=== PATIENT | female | born 1965 | race Caucasian/White ===

== ENCOUNTER 2017-11-19 10:24 | Inpatient (IN) ==
[2017-11-19] MEDS ORDERED: Vancomycin Inj 1,000 MG in Sodium Chlor 0.9% Inj 250 ML IV.SIG STA (10:46)
[2017-11-19] MEDS ORDERED: Piperacil/Tazo 4.5 GM Premix 4.5 GM/100 ML BAG IV.SIG STA (10:46)
--- NOTE | 2017-11-19 11:07 | ED ---
HPI General Chief complaint: Recheck/Abnormal Lab/Rx Stated complaint: Right foot second toe red/swollen Time Seen by Provider: 11/19/17 10:46 Source: patient Mode of arrival: ambulatory Limitations: no limitations History of Present Illness HPI narrative: Patient presents with wet necrotic R second toe. Reports a non healing blister that started in September and has worsened since 4 days ago. complaint: rash (erythema tracking up R foot from wound ) and lesion Onset (ago): month(s) Tetanus Immunization: Unsure Location: R foot (second toe ) Severity: severe Quality: burning (mild transient burning on medial R ankle ) Pain Consistency: other (none) Relieving factors: none Exacerbating factors: none Context: none Associated symptoms: fever Treatments prior to arrival: antibiotic (topical triple antibiotic cream for last 4 days ) Related Data Home Medications Medication Instructions Recorded Confirmed No Known Home Medications 11/19/17 11/19/17 Allergies Allergy/AdvReac Type Severity Reaction Status Date / Time No Known Allergies Allergy Verified 11/19/17 11:44 Review of Systems ROS: all other systems reviewed are negative [facility] Surgical History Surgical History Hx of cholecystectomy (Acute) S/P lumpectomy, left breast (Acute) Social History Social History Substance History: No History of Abuse Smoking Status: Current every day smoker Tobacco Type: Cigarettes How Often Do You Have a Drink Containing Alcohol: Never Recent Travel in [facility] within the Last 8 Weeks: No Recent Out of Country Travel within the Last 8 Weeks: No Immunization History Tetanus Immunization: Unsure Hx Influenza Vaccine This Season: No Pediatric Immunizations Up to Date: Yes Exam Skin General: crusts, erythema and eschar Lesions: lesion noted Rashes: rashes noted Trauma: abrasion Wounds: wounds noted Hair: normal Nails: yellow and thickened Course Consultations Consultation #1: Dr. Easton will admit Time: 15:05 Initial Documented Vital Signs Temperature 98.6 F 11/19/17 10:36 Pulse Rate 104 H 11/19/17 10:36 Respiratory Rate 15 11/19/17 10:36 Blood Pressure 162/74 H 11/19/17 10:36 Pulse Oximetry 98 11/19/17 10:36 Last Documented Vital Signs Temperature 98.6 F 11/19/17 10:40 Pulse Rate 85 11/19/17 13:40 Respiratory Rate 12 11/19/17 13:40 Blood Pressure 140/65 11/19/17 13:40 Pulse Oximetry 98 11/19/17 13:40 Medical Decision Making MDM Narrative Medical decision making narrative: This patient presents with progressively worsening redness of her right second toe. On examination, she has cellulitis of the right second toe. There is also an open wound. She was treated empirically with Zosyn and vancomycin while pending her workup. Her MRI does show ostial mild right second toe. I will request admission for IV antibiotics and podiatry consultation. Medical Screen Exam Complete: Yes Emergency Medical Condition: Yes Differential Diagnosis Differential Diagnosis: erysipelas, cellulitis, dry gangrene, wet gangrene Lab Data Lab results reviewed: Yes I reviewed the patient's lab results. Result diagrams: 11/19/17 11:05 11/19/17 11:05 Lab Results 11/19/17 11/19/17 11/19/17 Range/Units 11:05 11:05 11:05 WBC 12.3 H (4.0-11.0) th/mm3 RBC 4.43 (4.00-5.30) mil/mm3 Hgb 13.3 (11.6-15.3) gm/dL Hct 38.4 (35.0-46.0) % MCV 86.8 (80.0-100.0) fL MCH 30.1 (27.0-34.0) pg MCHC 34.7 (32.0-36.0) % RDW 13.5 (11.6-17.2) % Plt Count 238 (150-450) th/mm3 MPV 9.7 (7.0-11.0) fL Neut % (Auto) 80.6 H (16.0-70.0) % Lymph % (Auto) 14.2 (9.0-44.0) % [place] % (Auto) 4.6 (0.0-8.0) % Eos % (Auto) 0.2 (0.0-4.0) % Baso % (Auto) 0.4 (0.0-2.0) % Neut # (Auto) 9.9 H (1.8-7.7) th/mm3 Lymph # (Auto) 1.8 (1.0-4.8) th/mm3 [place] # (Auto) 0.6 (0.0-0.9) th/mm3 Eos # (Auto) 0.0 (0.0-0.4) th/mm3 Baso # (Auto) 0.0 (0.0-0.2) th/mm3 WBC Differential . Differential Comment Auto diff final ESR (0-30) mm/hr Sodium 135 L (136-145) meq/L Potassium 4.7 (3.5-5.1) meq/L Chloride 99 (98-107) meq/L Carbon Dioxide 28.1 (21.0-32.0) meq/L Anion Gap 8 (5-15) meq/L BUN 12 (7-18) mg/dL Creatinine 0.75 (0.50-1.00) mg/dL Estimated GFR 81 L (>89) mL/min Random Glucose 316 H (74-106) mg/dL Lactic Acid 1.1 (0.4-2.0) mmol/L Calcium 9.0 (8.5-10.1) mg/dL Total Bilirubin 0.6 (0.2-1.0) mg/dL AST 24 (15-37) U/L ALT 18 (10-53) U/L Alkaline Phosphatase 110 (45-117) U/L C-Reactive Protein (0.00-0.30) mg/dL Total Protein 8.3 H (6.4-8.2) g/dL Albumin 3.1 L (3.4-5.0) g/dL 11/19/17 11/19/17 Range/Units 11:05 11:05 WBC (4.0-11.0) th/mm3 RBC (4.00-5.30) mil/mm3 Hgb (11.6-15.3) gm/dL Hct (35.0-46.0) % MCV (80.0-100.0) fL MCH (27.0-34.0) pg MCHC (32.0-36.0) % RDW (11.6-17.2) % Plt Count (150-450) th/mm3 MPV (7.0-11.0) fL Neut % (Auto) (16.0-70.0) % Lymph % (Auto) (9.0-44.0) % [place] % (Auto) (0.0-8.0) % Eos % (Auto) (0.0-4.0) % Baso % (Auto) (0.0-2.0) % Neut # (Auto) (1.8-7.7) th/mm3 Lymph # (Auto) (1.0-4.8) th/mm3 [place] # (Auto) (0.0-0.9) th/mm3 Eos # (Auto) (0.0-0.4) th/mm3 Baso # (Auto) (0.0-0.2) th/mm3 WBC Differential Differential Comment ESR 43 H (0-30) mm/hr Sodium (136-145) meq/L Potassium (3.5-5.1) meq/L Chloride (98-107) meq/L Carbon Dioxide (21.0-32.0) meq/L Anion Gap (5-15) meq/L BUN (7-18) mg/dL Creatinine (0.50-1.00) mg/dL Estimated GFR (>89) mL/min Random Glucose (74-106) mg/dL Lactic Acid (0.4-2.0) mmol/L Calcium (8.5-10.1) mg/dL Total Bilirubin (0.2-1.0) mg/dL AST (15-37) U/L ALT (10-53) U/L Alkaline Phosphatase (45-117) U/L C-Reactive Protein 14.60 H (0.00-0.30) mg/dL Total Protein (6.4-8.2) g/dL Albumin (3.4-5.0) g/dL Imaging Data Radiologist's impression: Chest X-Ray 11/19/17 10:46 CONCLUSION: Negative examination. Foot MRI 11/19/17 10:46 CONCLUSION: 1. Evidence of significant soft tissue swelling of the right second toe as well as edema involving the right second middle and distal phalanges. The findings are consistent with probable osteomyelitis and cellulitis of the right second toe. There is joint fluid involving the second proximal interphalangeal joint. There is diffuse marrow edema involving the first distal phalanx with soft tissue swelling/cellulitis involving the great toe also. These findings are also suggestive of probable osteomyelitis and cellulitis of the great toe. There is also evidence of diffuse marrow edema involving the right third and fourth metatarsals and minimal scattered edema within the distal shaft of the first metatarsal raising the possibility of osteomyelitis within these bones. Three-phase bone scan may be helpful for further characterization of these bones if clinically indicated. Diffuse cellulitis is noted along the plantar surface of the midfoot. No deep soft tissue abscess is noted. Discharge Plan Discharge Disposition Patient Disposition: 30 Still Patient Discharge Condition Condition: Fair Discharge Details Diagnosis: Wet gangrene, Osteomyelitis Physicians Team ED Provider: Mabel Hooper Primary Care Provider: [facility] Rxs /Orders / Referrals /Forms Prescriptions: No Action No Known Home Medications RF: 0 Status ED Status: Pending Admission
--- NOTE | 2017-11-19 11:09 | XR ---
EXAM DATE: 11/19/2017 10:46 AM EDT AGE/SEX: 52 years / Female INDICATIONS: Fever, short of breath, possible infection 2nd toe of right foot CLINICAL DATA: This is the patient's initial encounter. Patient reports that signs and symptoms have been present for 1 day and indicates a pain score of 0/10. MEDICAL/SURGICAL HISTORY: None. None. COMPARISON: No prior exams available for comparison. FINDINGS: A single AP view of the chest demonstrates the lungs to be symmetrically aerated without evidence of mass, infiltrate or effusion. The cardiomediastinal contours are unremarkable. Osseous structures a re intact. CONCLUSION: Negative examination. Electronically signed by: Beni Faulkner MD 11/19/2017 11:07 AM EDT
[2017-11-19 11:29] LABS: Baso % (Auto) 0.4 % (0.0-2.0); Eos % (Auto) 0.2 % (0.0-4.0); Hematocrit 38.4 % (35.0-46.0); Hemoglobin 13.3 gm/dL (11.6-15.3); Lymph # (Auto) 1.8 th/mm3 (1.0-4.8); Lymph % (Auto) 14.2 % (9.0-44.0); Mean Corpuscular HGB Conc 34.7 % (32.0-36.0); Mean Corpuscular Hemoglobin 30.1 pg (27.0-34.0); Mean Corpuscular Volume 86.8 fL (80.0-100.0); Mean Platelet Volume 9.7 fL (7.0-11.0); Mono # (Auto) 0.6 th/mm3 (0.0-0.9); Mono % (Auto) 4.6 % (0.0-8.0); Neut # (Auto) 9.9 th/mm3 (1.8-7.7); Neut % (Auto) 80.6 % (16.0-70.0); Platelet Count 238 th/mm3 (150-450); Red Blood Count 4.43 mil/mm3 (4.00-5.30); Red Cell Distribution Width 13.5 % (11.6-17.2); White Blood Count 12.3 th/mm3 (4.0-11.0)
[2017-11-19 11:46] LABS: Albumin 3.1 g/dL (3.4-5.0); Anion Gap 8 meq/L (5-15); Aspartate Aminotransferase 24 U/L (15-37); Blood Urea Nitrogen 12 mg/dL (7-18); Carbon Dioxide 28.1 meq/L (21.0-32.0); Chloride 99 meq/L (98-107); Glomerular Filtration Rate 81 mL/min (>89); Glucose,Random 316 mg/dL (74-106); Sodium 135 meq/L (136-145)
[2017-11-19 11:47] LABS: Alanine Aminotransferase 18 U/L (10-53); Alkaline Phosphatase 110 U/L (45-117); Potassium 4.7 meq/L (3.5-5.1); Total Protein 8.3 g/dL (6.4-8.2)
[2017-11-19] MEDS ORDERED: Gadobutrol PF 7.5 MMOL/7.5 ML Vial (for RAD) IV.SIG ONE (13:20)
--- NOTE | 2017-11-19 14:12 | MR ---
EXAM DATE: 11/19/2017 12:14 PM EDT AGE/SEX: 52 years / Female INDICATIONS: . Right second toe infection. CLINICAL DATA: This is the patient's initial encounter. Patient reports that signs and symptoms have been present for 4 - 6 days and indicates a pain score of 3/10. MEDICAL/SURGICAL HISTORY: None. section. Cholecystectomy. LT breast lumpectomy COMPARISON: No prior exams available for comparison. TECHNIQUE: Multiplanar, multisequence MRI examination was performed without contrast and after th e intravenous administration of 7.5 ml Gadavist (gadobutrol) single exam dose. FINDINGS: There is evidence of significant soft tissue swelling of the right second toe as well as edema involv ing the right second middle and distal phalanges. The findings are consistent with probable osteomyel itis and cellulitis of the right second toe. There is joint fluid involving the second proximal inter phalangeal joint. There is diffuse marrow edema involving the first distal phalanx with soft tissue s welling/cellulitis involving the great toe also. These findings are also suggestive of probable osteo myelitis and cellulitis of the great toe. There is also evidence of diffuse marrow edema involving th e right third and fourth metatarsals and minimal scattered edema within the distal shaft of the first metatarsal raising the possibility of osteomyelitis within these bones. Three-phase bone scan may be helpful for further characterization of these bones if clinically indicated. Diffuse cellulitis is n oted along the plantar surface of the midfoot. No deep soft tissue abscess is noted. CONCLUSION: 1. Evidence of significant soft tissue swelling of the right second toe as well as edema involving t he right second middle and distal phalanges. The findings are consistent with probable osteomyelitis and cellulitis of the right second toe. There is joint fluid involving the second proximal interphala ngeal joint. There is diffuse marrow edema involving the first distal phalanx with soft tissue swelli ng/cellulitis involving the great toe also. These findings are also suggestive of probable osteomyeli tis and cellulitis of the great toe. There is also evidence of diffuse marrow edema involving the rig ht third and fourth metatarsals and minimal scattered edema within the distal shaft of the first meta tarsal raising the possibility of osteomyelitis within these bones. Three-phase bone scan may be help ful for further characterization of these bones if clinically indicated. Diffuse cellulitis is noted along the plantar surface of the midfoot. No deep soft tissue abscess is noted. Electronically signed by: Beni Faulkner MD 11/19/2017 2:10 PM EDT
[2017-11-19] MEDS ORDERED: Bisacodyl 10 MG Supp RECTAL PRN (15:05)
[2017-11-19] MEDS ORDERED: Vancomycin Consult Pharmacy OTHER PRN (15:15)
[2017-11-19] MEDS ORDERED: Dextrose 50% in Water 50 ML Vial IV.PUSH PRN (15:55)
--- NOTE | 2017-11-19 15:58 | P.HP ---
History of Present Illness Service: Hospitalist Primary Care Physician: No Primary Care Physician Chief Complaint: Right foot pain, tenderness, redness History of Present Illness: Ms. Nava is a pleasant 52-year-old female with no significant medical history who presents to the emergency department due to pain, necrotic changes to her right second toe as well as fever and chills. Patient had a blister on the bottom side of her right second toe back in September. Her blister improved. However approximately 4 days ago she started noticing redness swelling as well as fever and chills. In the last 24 hours prior to this admission, she started noticing her toe becoming necrotic. She also has more pain in her forefoot and her pain is moving up her ankle. She denies any chest pain, shortness of breath, cough. No abdominal pain. No changes in bowel or bladder habits. ED workup indicates osteomyelitis of the right sided second toe. Her blood glucose was also elevated to 316. She was not aware of her diabetes diagnosis. Past medical history: No significant past medical history. Past surgical history: Cholecystectomy, , breast lumpectomy (no malignancy) Social history: Patient quit smoking a few days ago. She denies using alcohol or illicit drugs. Family history: Mother had arthritis and father had diabetes mellitus. - Diagnosis (1) Osteomyelitis (2) Diabetes mellitus Inpatient Certification: I certify that the inpatient services were ordered in accordance with Medicare regulations governing the order. This includes certification that hospital inpatient services are reasonable and necessary and in the case of services not specified as inpatient-only under 42 CFR 419.22(n), that they are appropriately provided as inpatient services in accordance to with the 2-midnight benchmark under 43 CFR 412.3(e) Estimated Total Length of Stay (Days): 3 Plans for Post Hospital Care: Home Review of Systems All other systems reviewed negative except as stated in HPI PMFSH - History History Provided By: Patient - Medical History Medical History: Medical History (Last Reviewed 11/19/17 @ 11:01 by Mabel Hooper) delivery delivered - Surgical History Surgical History: Surgical History (Last Updated 11/19/17 @ 10:54 by Ruth Wylie) Hx of cholecystectomy S/P lumpectomy, left breast - Tobacco History Tobacco Use In Past 30 Days: Yes Smoking Status: Current every day smoker Tobacco Type: Cigarettes - Alcohol History How Often Do You Have a Drink Containing Alcohol: Never - Substance Use History Substance History: No History of Abuse - Travel History Recent Travel in the [place] Within the Last 8 Weeks: No Recent Travel Out of the Country Within the Last 8 Weeks: No - Immunization History Tetanus Immunization: Unsure Hx Influenza Vaccine This Season: No Pediatric Immunizations Up to Date: Yes Medications and Allergies Active Medications: Active Medications Acetaminophen (Tylenol) 650 mg PO Q4H PRN PRN Reason: Headache, fever, pain 1-4 Hydrocodone Bitart/Acetaminophen ([place] 5/325) 1 tab PO Q6H PRN PRN Reason: Pain 5-10 Al Hydroxide/Mg Hydroxide (Milk Of Magnesia Liq) 30 ml PO Q12H PRN PRN Reason: Mild Constipation Bisacodyl (Dulcolax Supp) 10 mg RECTAL DAILY PRN PRN Reason: SEVERE CONSITIPATION Dextrose (D50w Vial) 50 ml IV.PUSH UNSCH PRN PRN Reason: PER HYPOGLYCEMIA PROTOCOL Glucagon (Glucagon Inj) 1 mg OTHER PRN PRN PRN Reason: for Hypoglycemia Protocol Piperacillin/Tazobactam/Dextrose (Zosyn 4.5 Gm Premix) 4.5 gm in 100 mls @ 200 mls/hr IV.SIG Q8H SANDRA Vancomycin HCl 1,000 mg/ (Sodium Chloride) 250 mls @ 250 mls/hr IV.SIG Q12H SANDRA Insulin Aspart (Novolog Insulin Correctional Sugar Inj) 0 unit SQ ACHS SANDRA; Protocol Insulin Detemir (Levemir Inj) 7 unit SQ HS SANDRA Lactulose (Lactulose Liq) 30 ml PO DAILY PRN PRN Reason: SEVERE CONSITIPATION Miscellaneous Information ([facility] Ordered Lab Info) 0 each OTHER ONCE ONE Stop: 11/20/17 22:46 Ondansetron HCl (Zofran Inj) 4 mg IV.PUSH Q6H PRN PRN Reason: NAUSEA OR VOMITING Pharmacy Profile Note (Vancomycin Consult Pharmacy) 1 each OTHER UNSCH PRN PRN Reason: Pharmacy to dose Sennosides (Senokot) 17.2 mg PO Q12H PRN PRN Reason: Moderate Constipation Allergies Allergy/AdvReac Type Severity Reaction Status Date / Time No Known Allergies Allergy Verified 11/19/17 11:44 Home Medications Medication Instructions Recorded Confirmed Type No Known Home Medications 11/19/17 11/19/17 History Exam Vital signs: Vital Signs 11/19/17 10:36 11/19/17 10:40 11/19/17 10:46 Temperature 98.6 F 98.6 F Pulse Rate 104 H 90 Respiratory Rate 15 20 Blood Pressure 162/74 H 167/70 H Pulse Oximetry 98 98 98 11/19/17 12:27 11/19/17 13:40 11/19/17 15:30 Temperature Pulse Rate 82 85 85 Respiratory Rate 18 12 18 Blood Pressure 143/66 H 140/65 143/69 H Pulse Oximetry 99 98 99 Intake & Output 11/18/17 11/19/17 11/19/17 18:59 06:59 18:59 Intake Total 250 / 250 Balance 250 / 250 Weight 73.482 kg Intake: IV 250 / 250 Vancomycin Inj 1,000 MG In NS 250 / 250 Inj 250 ML @ 250 mls/hr IV.SIG STAT STA Rx#:[id number] Narrative: GENERAL: This is a well-nourished, well-developed patient, in no apparent distress. SKIN: No rashes, ecchymoses or lesions. Warm and dry. HEAD: Atraumatic. Normocephalic. No temporal or scalp tenderness. EYES: Pupils equal round and reactive. No injection or drainage. ENT: Nose without bleeding, purulent drainage or septal hematoma. Airway patent. NECK: Trachea midline. No lymphadenopathy. Supple, nontender, no meningeal signs. CARDIOVASCULAR: Regular rate and rhythm without murmurs, gallops, or rubs. No JVD. RESPIRATORY: Clear to auscultation. Breath sounds equal bilaterally. No wheezes , rales, or rhonchi. GASTROINTESTINAL: Abdomen soft, non-tender, nondistended. No guarding. MUSCULOSKELETAL: Extremities without clubbing, cyanosis, or edema. Right forefoot has erythematous changes, warm to touch, right 2nd digit has necrotic tip and swelling. 3rd toe has some swelling as well. NEUROLOGICAL: Awake and alert. Cranial nerves II through XII intact. No focal neurological deficits. Normal speech. Results - Labs CBC & Chem 7: 11/19/17 11:05 11/19/17 11:05 Labs: Laboratory Results - last 24 hr 11/19/17 11/19/17 11/19/17 11:05 11:05 11:05 WBC 12.3 H RBC 4.43 Hgb 13.3 Hct 38.4 MCV 86.8 MCH 30.1 MCHC 34.7 RDW 13.5 Plt Count 238 MPV 9.7 Neut % (Auto) 80.6 H Lymph % (Auto) 14.2 [place] % (Auto) 4.6 Eos % (Auto) 0.2 Baso % (Auto) 0.4 Neut # (Auto) 9.9 H Lymph # (Auto) 1.8 [place] # (Auto) 0.6 Eos # (Auto) 0.0 Baso # (Auto) 0.0 WBC Differential . Differential Comment Auto diff final ESR Sodium 135 L Potassium 4.7 Chloride 99 Carbon Dioxide 28.1 Anion Gap 8 BUN 12 Creatinine 0.75 Estimated GFR 81 L Random Glucose 316 H Lactic Acid 1.1 Calcium 9.0 Total Bilirubin 0.6 AST 24 ALT 18 Alkaline Phosphatase 110 C-Reactive Protein Total Protein 8.3 H Albumin 3.1 L 11/19/17 11/19/17 11:05 11:05 WBC RBC Hgb Hct MCV MCH MCHC RDW Plt Count MPV Neut % (Auto) Lymph % (Auto) [place] % (Auto) Eos % (Auto) Baso % (Auto) Neut # (Auto) Lymph # (Auto) [place] # (Auto) Eos # (Auto) Baso # (Auto) WBC Differential Differential Comment ESR 43 H Sodium Potassium Chloride Carbon Dioxide Anion Gap BUN Creatinine Estimated GFR Random Glucose Lactic Acid Calcium Total Bilirubin AST ALT Alkaline Phosphatase C-Reactive Protein 14.60 H Total Protein Albumin - Imaging Impressions Chest X-Ray 11/19/17 10:46 CONCLUSION: Negative examination. Foot MRI 11/19/17 10:46 CONCLUSION: 1. Evidence of significant soft tissue swelling of the right second toe as well as edema involving the right second middle and distal phalanges. The findings are consistent with probable osteomyelitis and cellulitis of the right second toe. There is joint fluid involving the second proximal interphalangeal joint. There is diffuse marrow edema involving the first distal phalanx with soft tissue swelling/cellulitis involving the great toe also. These findings are also suggestive of probable osteomyelitis and cellulitis of the great toe. There is also evidence of diffuse marrow edema involving the right third and fourth metatarsals and minimal scattered edema within the distal shaft of the first metatarsal raising the possibility of osteomyelitis within these bones. Three-phase bone scan may be helpful for further characterization of these bones if clinically indicated. Diffuse cellulitis is noted along the plantar surface of the midfoot. No deep soft tissue abscess is noted. Caprini VTE Risk Assessment Caprini VTE Risk Assessment: Moderate/High Risk (score >= 2) Caprini Risk Assessment Model: Point Value = 1 Point Value = 2 Point Value = 3 Point Value = 5 Age 41-60 Minor surgery BMI > 25 kg/m2 Swollen legs Varicose veins or History of unexplained or recurrent spontaneous Oral contraceptives or hormone replacement Sepsis (< 1 month) Serious lung disease, including pneumonia (< 1 month) Abnormal pulmonary function Acute myocardial infarction Congestive heart failure (< 1 month) History of inflammatory bowel disease Medical patient at bed rest Age 61-74 Arthroscopic surgery Major open surgery (> 45 min) Laparoscopic surgery (> 45 min) Malignancy Confined to bed (> 72 hours) Immobilizing plaster cast Central venous access Age >= 75 History of VTE Family history of VTE Factor V Leiden Prothrombin [id number] Lupus anticoagulant Anticardiolipin antibodies Elevated serum homocysteine Heparin-induced thrombocytopenia Other congenital or acquired thrombophilia Stroke (< 1 month) Elective arthroplasty Hip, pelvis, or leg fracture Acute spinal cord injury (< 1 month) Prophylaxis Regimen: Total Risk Factor Score Risk Level Prophylaxis Regimen 0-1 Low Early ambulation 2 Moderate Order ONE of the following: *Sequential Compression Device (SCD) *Heparin 5000 units SQ BID 3-4 Higher Order ONE of the following medications: *Heparin 5000 units SQ TID *Enoxaparin/Lovenox 40 mg SQ daily (WT < 150 kg, CrCl > 30 mL/min) *Enoxaparin/Lovenox 30 mg SQ daily (WT < 150 kg, CrCl > 10-29 mL/min) *Enoxaparin/Lovenox 30 mg SQ BID (WT < 150 kg, CrCl > 30 mL/min) AND/OR *Sequential Compression Device (SCD) 5 or more Highest Order ONE of the following medications: *Heparin 5000 units SQ TID (Preferred with Epidurals) *Enoxaparin/Lovenox 40 mg SQ daily (WT < 150 kg, CrCl > 30 mL/min) *Enoxaparin/Lovenox 30 mg SQ daily (WT < 150 kg, CrCl > 10-29 mL/min) *Enoxaparin/Lovenox 30 mg SQ BID (WT < 150 kg, CrCl > 30 mL/min) AND *Sequential Compression Device (SCD) Assessment and Plan - Assessment (1) Osteomyelitis Code(s): M86.9 - Osteomyelitis, unspecified Status: Acute (2) Diabetes mellitus Code(s): E11.9 - Type 2 diabetes mellitus without complications Status: Acute - Plan Ms. Nava is a pleasant 52-year-old female with no significant medical history who presents to the emergency department due to second toe of her right foot swelling, redness, pain and necrotic tissue changes. Patient also had fever and chills. Emergency department workup indicates osteomyelitis and newly diagnosed diabetes mellitus. Acute Osteomyelitis of right second toe -Likely related to diabetic foot infection. ESR 43. -Consult Podiatry as well as ID -Start Vancomycin and Zosyn -Acetaminophen and [place] for pain. -Will obtain ELVIRA - if abnormal, may need a vascular surgery consult. Diabetes mellitus - HbA1c, lipid profile ordered - Start corrective scale insulin as well as Levemir 7 units QHS. - Upon discharge, consider PO Metformin +/- Glimepiride. - Diabetic education consult. Full code. SCDs for now. (1) Osteomyelitis Qualifiers: Osteomyelitis type: unspecified type Osteomyelitis location: foot Laterality : right Qualified Code(s): M86.9 - Osteomyelitis, unspecified
[2017-11-19] MEDS: Insulin NovoLOG Aspart Correctional Sugar Inj SQ SCH ×2 (18:11→22:17)
[2017-11-19] MEDS ORDERED: Insulin Detemir Inj 1,000 UNIT/10 ML Vial SQ SCH (21:00)
[2017-11-19] MEDS: Acetaminophen 325 MG Tablet PO PRN (22:09)
[2017-11-19] MEDS: Piperacil/Tazo 4.5 GM Premix 4.5 GM/100 ML BAG IV.SIG SCH (22:14)
[2017-11-19] MEDS: Vancomycin Inj 1,000 MG in Sodium Chlor 0.9% Inj 250 ML IV.SIG SCH (22:14)
[2017-11-20] MEDS: Piperacil/Tazo 4.5 GM Premix 4.5 GM/100 ML BAG IV.SIG SCH ×4 (05:29→22:47)
[2017-11-20 07:43] LABS: Glomerular Filtration Rate Greater Than 89 mL/min (>89)
[2017-11-20 07:45] LABS: Cholesterol 187 mg/dL (120-200); Triglycerides 154 mg/dL (42-150)
[2017-11-20 07:47] LABS: Chol/HDL Ratio 5.95 Ratio; HDL Cholesterol 31.4 mg/dL (40.0-60.0); LDL Cholesterol,Calculated 125 mg/dL (0-99)
[2017-11-20] MEDS: Insulin NovoLOG Aspart Correctional Sugar Inj SQ SCH ×4 (08:28→22:50)
--- NOTE | 2017-11-20 08:57 | P.CONID ---
History of Present Illness Service: Infectious disease Consult date: 11/20/17 Requesting Physician: Tonja Easton Reason for Consult: Evaluate patient with osteomyelitis right foot Primary Care Provider: No Primary Care Physician Chief Complaint: Right foot pain, tenderness, redness History of Present Illness: Patient seen and examined. Records reviewed. Patient is a 52-year-old female, presented to the hospital complaining of 4-day history of redness and swelling on her right foot as well as black discoloration of her right second toe over the last 2 days. Patient stated that she developed a blister on her right second toe around the first week of September. She has been doing her own wound care, and what is been happening is that she would develop a scab or some kind of a callus over the area where she had the blister, and then it would come off, and then it would develop again a Tania. This went on over the last 2 months. She had an episode of redness below that second toe back in September, and she took some leftover antibiotic from the and apparently the redness went away. She did not really have any other new problem up until 4 days ago when she woke up and she had noticed that the right second toe is red and swollen. She also had fevers at that time. She was not improving, and about a day prior to admission she had noted black discoloration on that second toe. She presented to the hospital for further evaluation and treatment. She has not had any respiratory complaint, GI or any urinary complaints. Since admission she has not had any fever. Her white count is 12,000. Sed rate is 43. Imaging studies of that right foot is showing multiple abnormalities suggestive of osteomyelitis including findings on the second toe, first toe, as well as some of the metatarsal bones. Patient has known neuropathy and according to her this is been for the last 15 years, and has chronic numbness on both feet. Infectious disease consultation has been requested to evaluate the patient Review of Systems Constitutional: Reports chills, Reports fatigue, Reports fever(s) Eyes: Denies discharge, Denies dry eyes Ears, Nose, Mouth, and Throat: Denies difficulty swallowing, Denies mouth lesions, Denies nasal discharge, Denies pain with swallowing, Denies sore throat Cardiovascular: Denies chest pain, Denies shortness of breath Respiratory: Denies chest congestion, Denies cough, Denies shortness of breath Gastrointestinal: Denies abdominal pain, Denies loose stools, Denies nausea, Denies pain with swallowing, Denies vomiting Genitourinary: Denies difficulty urinating, Denies painful urination Musculoskeletal: Reports numbness, Denies back pain Skin/Breast: Reports sores, Denies rash Neurologic: Reports numbness, Denies localized weakness PMFSH - History History Provided By: Patient - Medical History Medical History: Medical History (Last Updated 11/20/17 @ 09:13 by Mini Lim MD) delivery delivered Neuropathy - Surgical History Surgical History: Surgical History (Last Updated 11/20/17 @ 09:13 by Mini Lim MD) Hx of breast surgery Hx of cholecystectomy - Tobacco History Second Hand Smoke Exposure: Yes Tobacco Use In Past 30 Days: No Smoking Status: Former smoker Tobacco Type: Cigarettes - Alcohol History How Often Do You Have a Drink Containing Alcohol: Never - Substance Use History Substance History: No History of Abuse - Travel History Recent Travel in the [place] Within the Last 8 Weeks: No Recent Travel Out of the Country Within the Last 8 Weeks: No - Immunization History Tetanus Immunization: Unsure Hx Influenza Vaccine This Season: No Pediatric Immunizations Up to Date: Yes Medications and Allergies Active Medications: Active Medications Acetaminophen (Tylenol) 650 mg PO Q4H PRN PRN Reason: Headache, fever, pain 1-4 Last Admin: 11/19/17 22:09 Dose: 650 mg Hydrocodone Bitart/Acetaminophen ([place] 5/325) 1 tab PO Q6H PRN PRN Reason: Pain 5-10 Last Admin: 11/20/17 05:29 Dose: 1 tab Al Hydroxide/Mg Hydroxide (Milk Of Magnesia Liq) 30 ml PO Q12H PRN PRN Reason: Mild Constipation Bisacodyl (Dulcolax Supp) 10 mg RECTAL DAILY PRN PRN Reason: SEVERE CONSITIPATION Dextrose (D50w Vial) 50 ml IV.PUSH UNSCH PRN PRN Reason: PER HYPOGLYCEMIA PROTOCOL Glucagon (Glucagon Inj) 1 mg OTHER PRN PRN PRN Reason: for Hypoglycemia Protocol Piperacillin/Tazobactam/Dextrose (Zosyn 4.5 Gm Premix) 4.5 gm in 100 mls @ 200 mls/hr IV.SIG Q8H SANDRA Last Infusion: 11/20/17 06:00 Dose: Infused Vancomycin HCl 1,000 mg/ (Sodium Chloride) 250 mls @ 250 mls/hr IV.SIG Q12H SANDRA Last Infusion: 11/19/17 23:45 Dose: Infused Insulin Aspart (Novolog Insulin [place] Sugar Inj) 0 unit SQ ACHS SANDRA; Protocol Last Admin: 11/20/17 08:28 Dose: 4 unit Insulin Detemir (Levemir Inj) 7 unit SQ HS [facility] Last Admin: 11/19/17 22:14 Dose: 7 unit Lactulose (Lactulose Liq) 30 ml PO DAILY PRN PRN Reason: SEVERE CONSITIPATION Miscellaneous Information ([facility] Ordered Lab Info) 0 each OTHER ONCE ONE Stop: 11/20/17 22:46 Ondansetron HCl (Zofran Inj) 4 mg IV.PUSH Q6H PRN PRN Reason: NAUSEA OR VOMITING Pharmacy Profile Note (Vancomycin Consult Pharmacy) 1 each OTHER UNSCH PRN PRN Reason: Pharmacy to dose Sennosides (Senokot) 17.2 mg PO Q12H PRN PRN Reason: Moderate Constipation Allergies Allergy/AdvReac Type Severity Reaction Status Date / Time No Known Allergies Allergy Verified 11/19/17 11:44 Home Medications Medication Instructions Recorded Confirmed Type No Known Home Medications 11/19/17 11/19/17 History Exam Vital signs: Vital Signs 11/19/17 10:36 11/19/17 10:40 11/19/17 10:46 Temperature 98.6 F 98.6 F Pulse Rate 104 H 90 Respiratory Rate 15 20 Blood Pressure 162/74 H 167/70 H Pulse Oximetry 98 98 98 11/19/17 12:27 11/19/17 13:40 11/19/17 15:30 Temperature Pulse Rate 82 85 85 Respiratory Rate 18 12 18 Blood Pressure 143/66 H 140/65 143/69 H Pulse Oximetry 99 98 99 11/19/17 16:00 11/19/17 20:02 11/20/17 00:00 Temperature 99.0 F 99.1 F 98.6 F Pulse Rate 82 84 85 Respiratory Rate 14 18 18 Blood Pressure 169/72 H 128/68 132/64 Pulse Oximetry 99 97 96 11/20/17 04:00 11/20/17 07:49 Temperature 98.7 F 98.4 F Pulse Rate 80 72 Respiratory Rate 18 16 Blood Pressure 135/70 114/56 L Pulse Oximetry 97 97 Intake & Output 11/19/17 11/20/17 11/20/17 18:59 06:59 18:59 Intake Total 350 / 350 450 / 450 Balance 350 / 350 450 / 450 Weight 73.482 kg 75.5 kg Intake: IV 350 / 350 450 / 450 Zosyn 4.5 GM Premix 4.5 gm In 100 / 100 200 / 200 100 ml @ 200 mls/hr IV.SIG Q8H SANDRA Rx#:[id number] Vancomycin Inj 1,000 MG In NS 250 / 250 250 / 250 Inj 250 ML @ 250 mls/hr IV.SIG Q12H SANDRA Rx#:[id number] Other: # Voids 3 Date of Last Bowel Movement 11/19/17 Weight On Admission 75.6 kg Narrative: Physical Examination GENERAL: Patient is a well-nourished, well-developed female, awake and alert , not in respiratory distress. SKIN: Cool and dry. No generalized rash, no ecchymoses and no evidence of embolic lesions. HEAD: Atraumatic. Normocephalic. No temporal wasting, or tenderness. EYES: [place] conjunctiva. No petechia or hemorrhage. Pupils equal, round and reactive to light. Extraocular movements full and intact. No scleral icterus. No injection or drainage. EARS, NOSE AND THROAT: Nose without bleeding or purulent nasal discharge. No sinus tenderness. Mucous membranes pink and moist. No oral lesions noted. No exudate. No oral thrush. NECK: Trachea midline. Supple and not tender, no meningeal signs CARDIOVASCULAR: Regular rate and rhythm. No murmurs, rubs or gallops heard RESPIRATORY: Clear to auscultation. Breath sounds equal bilaterally. No rales , wheezing or rhonchi ABDOMEN: Soft, non-tender, nondistended. Bowel sounds present and normoactive. No guarding. No rebound. No organomegaly. EXTREMITIES: No clubbing, cyanosis. R foot with some mild edema on dorsum; there is swelling of her second toe with black eschar noted. There is also erythema on dorsum of her R foot, no tenderness on palpation in any part of her R foot. No joint effusions and has good ROM. No calf tenderness. NEUROLOGICAL: Awake and alert. Cranial nerves grossly intact. Motor grossly within normal limits. PSYCHIATRIC: Normal affect, calm and cooperative. LINE: No evidence of infection Results - Labs CBC & Chem 7: 11/19/17 11:05 11/20/17 06:58 Labs: Laboratory Results - last 24 hr 11/19/17 11/19/17 11/19/17 11:05 11:05 11:05 WBC 12.3 H RBC 4.43 Hgb 13.3 Hct 38.4 MCV 86.8 MCH 30.1 MCHC 34.7 RDW 13.5 Plt Count 238 MPV 9.7 Neut % (Auto) 80.6 H Lymph % (Auto) 14.2 [place] % (Auto) 4.6 Eos % (Auto) 0.2 Baso % (Auto) 0.4 Neut # (Auto) 9.9 H Lymph # (Auto) 1.8 [place] # (Auto) 0.6 Eos # (Auto) 0.0 Baso # (Auto) 0.0 WBC Differential . Differential Comment Auto diff final ESR Sodium 135 L Potassium 4.7 Chloride 99 Carbon Dioxide 28.1 Anion Gap 8 BUN 12 Creatinine 0.75 Estimated GFR 81 L POC Glucose Random Glucose 316 H Hemoglobin A1c Lactic Acid 1.1 Calcium 9.0 Total Bilirubin 0.6 AST 24 ALT 18 Alkaline Phosphatase 110 C-Reactive Protein Total Protein 8.3 H Albumin 3.1 L Triglycerides Cholesterol LDL Cholesterol, Calc HDL Cholesterol Cholesterol/HDL Ratio 11/19/17 11/19/17 11/19/17 11:05 11:05 11:05 WBC RBC Hgb Hct MCV MCH MCHC RDW Plt Count MPV Neut % (Auto) Lymph % (Auto) [place] % (Auto) Eos % (Auto) Baso % (Auto) Neut # (Auto) Lymph # (Auto) [place] # (Auto) Eos # (Auto) Baso # (Auto) WBC Differential Differential Comment ESR 43 H Sodium Potassium Chloride Carbon Dioxide Anion Gap BUN Creatinine Estimated GFR POC Glucose Random Glucose Hemoglobin A1c 13.0 H Lactic Acid Calcium Total Bilirubin AST ALT Alkaline Phosphatase C-Reactive Protein 14.60 H Total Protein Albumin Triglycerides Cholesterol LDL Cholesterol, Calc HDL Cholesterol Cholesterol/HDL Ratio 11/19/17 11/19/17 11/20/17 17:16 19:59 06:58 WBC RBC Hgb Hct MCV MCH MCHC RDW Plt Count MPV Neut % (Auto) Lymph % (Auto) [place] % (Auto) Eos % (Auto) Baso % (Auto) Neut # (Auto) Lymph # (Auto) [place] # (Auto) Eos # (Auto) Baso # (Auto) WBC Differential Differential Comment ESR Sodium Potassium Chloride Carbon Dioxide Anion Gap BUN Creatinine 0.63 Estimated GFR Greater than 89 POC Glucose 236 H 207 H Random Glucose Hemoglobin A1c Lactic Acid Calcium Total Bilirubin AST ALT Alkaline Phosphatase C-Reactive Protein Total Protein Albumin Triglycerides 154 H Cholesterol 187 LDL Cholesterol, Calc 125 H HDL Cholesterol 31.4 L Cholesterol/HDL Ratio 5.95 11/20/17 07:46 WBC RBC Hgb Hct MCV MCH MCHC RDW Plt Count MPV Neut % (Auto) Lymph % (Auto) [place] % (Auto) Eos % (Auto) Baso % (Auto) Neut # (Auto) Lymph # (Auto) [place] # (Auto) Eos # (Auto) Baso # (Auto) WBC Differential Differential Comment ESR Sodium Potassium Chloride Carbon Dioxide Anion Gap BUN Creatinine Estimated GFR POC Glucose 220 H Random Glucose Hemoglobin A1c Lactic Acid Calcium Total Bilirubin AST ALT Alkaline Phosphatase C-Reactive Protein Total Protein Albumin Triglycerides Cholesterol LDL Cholesterol, Calc HDL Cholesterol Cholesterol/HDL Ratio - Imaging Impressions Chest X-Ray 11/19/17 10:46 CONCLUSION: Negative examination. Foot MRI 11/19/17 10:46 CONCLUSION: 1. Evidence of significant soft tissue swelling of the right second toe as well as edema involving the right second middle and distal phalanges. The findings are consistent with probable osteomyelitis and cellulitis of the right second toe. There is joint fluid involving the second proximal interphalangeal joint. There is diffuse marrow edema involving the first distal phalanx with soft tissue swelling/cellulitis involving the great toe also. These findings are also suggestive of probable osteomyelitis and cellulitis of the great toe. There is also evidence of diffuse marrow edema involving the right third and fourth metatarsals and minimal scattered edema within the distal shaft of the first metatarsal raising the possibility of osteomyelitis within these bones. Three-phase bone scan may be helpful for further characterization of these bones if clinically indicated. Diffuse cellulitis is noted along the plantar surface of the midfoot. No deep soft tissue abscess is noted. Assessment and Plan - Plan Impression Cellulitis R foot with infected R second toe, osteo findings on MRI - abnormal first toe and MT 3rd and 4th but clinically no evidence of osteo Newly diagnosed DM Known neuropathy Recommendation Await podiatry evaluation - will need some form of amputation of her second toe Continue IV vanco for GPC/MRSA coverage Continue Zosyn for GNR/PSAE coverage Follow C/S Monitor progress I will determine course of Abx based on results of work-up and surgical intervention I will follow along with you Thank you for this consultation Explained plan to the patient
--- NOTE | 2017-11-20 09:16 | P.PN ---
Subjective Interval history: Follow up right 2nd toe osteo/cellulitis December 07, 2017-patient seen and examined; noncompliant with medical care due to lack of insurance; some mild 2ight toe pain. Afebrile. Labile BG Physical Exam Vital signs: Vital Signs 11/19/17 10:36 11/19/17 10:40 11/19/17 10:46 Temperature 98.6 F 98.6 F Pulse Rate 104 H 90 Respiratory Rate 15 20 Blood Pressure 162/74 H 167/70 H Pulse Oximetry 98 98 98 11/19/17 12:27 11/19/17 13:40 11/19/17 15:30 Temperature Pulse Rate 82 85 85 Respiratory Rate 18 12 18 Blood Pressure 143/66 H 140/65 143/69 H Pulse Oximetry 99 98 99 11/19/17 16:00 11/19/17 20:02 11/20/17 00:00 Temperature 99.0 F 99.1 F 98.6 F Pulse Rate 82 84 85 Respiratory Rate 14 18 18 Blood Pressure 169/72 H 128/68 132/64 Pulse Oximetry 99 97 96 11/20/17 04:00 11/20/17 07:49 Temperature 98.7 F 98.4 F Pulse Rate 80 72 Respiratory Rate 18 16 Blood Pressure 135/70 114/56 L Pulse Oximetry 97 97 Intake & Output 11/19/17 11/20/17 11/20/17 18:59 06:59 18:59 Intake Total 350 / 350 450 / 450 Balance 350 / 350 450 / 450 Weight 73.482 kg 75.5 kg Intake: IV 350 / 350 450 / 450 Zosyn 4.5 GM Premix 4.5 gm In 100 / 100 200 / 200 100 ml @ 200 mls/hr IV.SIG Q8H SANDRA Rx#:[id number] Vancomycin Inj 1,000 MG In NS 250 / 250 250 / 250 Inj 250 ML @ 250 mls/hr IV.SIG Q12H SANDRA Rx#:[id number] Other: # Voids 3 Date of Last Bowel Movement 11/19/17 Weight On Admission 75.6 kg Narrative: GENERAL: NAD SKIN: Warm and dry. HEAD: Atraumatic. Normocephalic. EYES: Pupils equal and round. No scleral icterus. No injection or drainage. ENT: No nasal bleeding or discharge. Mucous membranes pink and moist. NECK: Trachea midline. No JVD. CARDIOVASCULAR: Regular rate and rhythm. RESPIRATORY: No accessory muscle use. Clear to auscultation. Breath sounds equal bilaterally. GASTROINTESTINAL: Abdomen soft, non-tender, nondistended. Hepatic and splenic margins not palpable. MUSCULOSKELETAL: Extremities without clubbing, cyanosis, or edema. No obvious deformities. Right forefoot has erythematous changes, warm to touch, right 2nd digit has necrotic tip and swelling. 3rd toe has some swelling as well. NEUROLOGICAL: Awake and alert. No obvious cranial nerve deficits. Motor grossly within normal limits. Five out of 5 muscle strength in the arms and legs. Normal speech. PSYCHIATRIC: Appropriate mood and affect; insight and judgment normal. Results - Labs CBC & Chem 7: 11/19/17 11:05 11/20/17 06:58 Laboratory Results - last 24 hr 11/19/17 11/19/17 11/19/17 11:05 11:05 11:05 WBC 12.3 H RBC 4.43 Hgb 13.3 Hct 38.4 MCV 86.8 MCH 30.1 MCHC 34.7 RDW 13.5 Plt Count 238 MPV 9.7 Neut % (Auto) 80.6 H Lymph % (Auto) 14.2 [place] % (Auto) 4.6 Eos % (Auto) 0.2 Baso % (Auto) 0.4 Neut # (Auto) 9.9 H Lymph # (Auto) 1.8 [place] # (Auto) 0.6 Eos # (Auto) 0.0 Baso # (Auto) 0.0 WBC Differential . Differential Comment Auto diff final ESR Sodium 135 L Potassium 4.7 Chloride 99 Carbon Dioxide 28.1 Anion Gap 8 BUN 12 Creatinine 0.75 Estimated GFR 81 L POC Glucose Random Glucose 316 H Hemoglobin A1c Lactic Acid 1.1 Calcium 9.0 Total Bilirubin 0.6 AST 24 ALT 18 Alkaline Phosphatase 110 C-Reactive Protein Total Protein 8.3 H Albumin 3.1 L Triglycerides Cholesterol LDL Cholesterol, Calc HDL Cholesterol Cholesterol/HDL Ratio 11/19/17 11/19/17 11/19/17 11:05 11:05 11:05 WBC RBC Hgb Hct MCV MCH MCHC RDW Plt Count MPV Neut % (Auto) Lymph % (Auto) [place] % (Auto) Eos % (Auto) Baso % (Auto) Neut # (Auto) Lymph # (Auto) [place] # (Auto) Eos # (Auto) Baso # (Auto) WBC Differential Differential Comment ESR 43 H Sodium Potassium Chloride Carbon Dioxide Anion Gap BUN Creatinine Estimated GFR POC Glucose Random Glucose Hemoglobin A1c 13.0 H Lactic Acid Calcium Total Bilirubin AST ALT Alkaline Phosphatase C-Reactive Protein 14.60 H Total Protein Albumin Triglycerides Cholesterol LDL Cholesterol, Calc HDL Cholesterol Cholesterol/HDL Ratio 11/19/17 11/19/17 11/20/17 17:16 19:59 06:58 WBC RBC Hgb Hct MCV MCH MCHC RDW Plt Count MPV Neut % (Auto) Lymph % (Auto) [place] % (Auto) Eos % (Auto) Baso % (Auto) Neut # (Auto) Lymph # (Auto) [place] # (Auto) Eos # (Auto) Baso # (Auto) WBC Differential Differential Comment ESR Sodium Potassium Chloride Carbon Dioxide Anion Gap BUN Creatinine 0.63 Estimated GFR Greater than 89 POC Glucose 236 H 207 H Random Glucose Hemoglobin A1c Lactic Acid Calcium Total Bilirubin AST ALT Alkaline Phosphatase C-Reactive Protein Total Protein Albumin Triglycerides 154 H Cholesterol 187 LDL Cholesterol, Calc 125 H HDL Cholesterol 31.4 L Cholesterol/HDL Ratio 5.95 11/20/17 07:46 WBC RBC Hgb Hct MCV MCH MCHC RDW Plt Count MPV Neut % (Auto) Lymph % (Auto) [place] % (Auto) Eos % (Auto) Baso % (Auto) Neut # (Auto) Lymph # (Auto) [place] # (Auto) Eos # (Auto) Baso # (Auto) WBC Differential Differential Comment ESR Sodium Potassium Chloride Carbon Dioxide Anion Gap BUN Creatinine Estimated GFR POC Glucose 220 H Random Glucose Hemoglobin A1c Lactic Acid Calcium Total Bilirubin AST ALT Alkaline Phosphatase C-Reactive Protein Total Protein Albumin Triglycerides Cholesterol LDL Cholesterol, Calc HDL Cholesterol Cholesterol/HDL Ratio Microbiology 11/19/17 11:05 Wound - Foot Gram Stain - Final - Imaging Impressions Chest X-Ray 11/19/17 10:46 CONCLUSION: Negative examination. Foot MRI 11/19/17 10:46 CONCLUSION: 1. Evidence of significant soft tissue swelling of the right second toe as well as edema involving the right second middle and distal phalanges. The findings are consistent with probable osteomyelitis and cellulitis of the right second toe. There is joint fluid involving the second proximal interphalangeal joint. There is diffuse marrow edema involving the first distal phalanx with soft tissue swelling/cellulitis involving the great toe also. These findings are also suggestive of probable osteomyelitis and cellulitis of the great toe. There is also evidence of diffuse marrow edema involving the right third and fourth metatarsals and minimal scattered edema within the distal shaft of the first metatarsal raising the possibility of osteomyelitis within these bones. Three-phase bone scan may be helpful for further characterization of these bones if clinically indicated. Diffuse cellulitis is noted along the plantar surface of the midfoot. No deep soft tissue abscess is noted. Assessment and Plan - Assessment (1) Osteomyelitis Code(s): M86.9 - Osteomyelitis, unspecified Status: Acute (2) Diabetes mellitus Code(s): E11.9 - Type 2 diabetes mellitus without complications Status: Acute - Plan 52 years old female with Acute Osteomyelitis of right second toe/Surrounding cellulitis -Currently on vancomycin and Zosyn pending culture report - Podiatry as well as ID consultation pending -Acetaminophen and [place] for pain. -Check ELVIRA - if abnormal, may need a vascular surgery consult. Diabetes mellitus - HbA1c 13 -Change Levemir to 10 units twice daily, continue with insulin sliding scale - Diabetic education consult. -Start CEZAR inhibitor for renal protection Hyperlipidemia Start Lipitor 10 mg at bedtime Hypertension Start lisinopril 10 mg daily Full code. SCDs for now. (1) Osteomyelitis Qualifiers: Osteomyelitis type: unspecified type Osteomyelitis location: foot Laterality : right Qualified Code(s): M86.9 - Osteomyelitis, unspecified
[2017-11-20] MEDS: Insulin Detemir Inj 1,000 UNIT/10 ML Vial SQ SCH ×2 (10:11→22:50)
--- NOTE | 2017-11-20 10:30 | ECHRPT ---
EXAM DATE: 11/20/2017 12:00 AM EDT AGE/SEX: 52 years / Female INDICATIONS: Toe gangrene CLINICAL DATA: This is the patient's initial encounter. Patient reports that signs and symptoms have been present for 2 months and indicates a pain score of 5/10. MEDICAL/SURGICAL HISTORY: . Diabetes, left 2nd digit toe gangrene . , cholecystectomy , lumpectomy left breast COMPARISON: No prior exams available for comparison. TECHNIQUE: Four-cuff ankle and brachial pressures were obtained. Pulse cuff waveform tracings of the ankles were recorded, and ankle-brachial indices were calculated. PRESSURES (mmHg): Brachial (arm) : RIGHT: IV SITE, LEFT: 109 Ankle : RIGHT: 95, LEFT: 106 ELVIRA : RIGHT: 0.87, LEFT: 0.97 TBI : RIGHT: 0.58, LEFT: 0.72 FINDINGS: Pulsed-Cuff Waveform: There are good upstroke and a dicrotic downstroke of the tracings. Other: None. CONCLUSION: Findings of mild disease on the right with slightly decreased toe brachial index on the right charact eristic of small vessel vascular disease. CT angiography of the abdominal aorta and lower extremities is recommended for further evaluation if clinically indicated. Electronically signed by: Ignacio Linton MD 11/20/2017 10:29 AM EDT
[2017-11-20] MEDS: Vancomycin Inj 1,000 MG in Sodium Chlor 0.9% Inj 250 ML IV.SIG SCH (12:18)
[2017-11-20] MEDS ORDERED: Sodium Chloride 0.9% 2 ML Flush PRN IV.FLUSH (15:24)
--- NOTE | 2017-11-20 21:45 | MB ---
cc: Kirstie Wei DPM DATE: 11/20/2017 REASON FOR CONSULTATION: Right second digit osteomyelitis. HISTORY OF PRESENT ILLNESS: The patient is a 52-year-old female with no past significant history, presents with a right second digit necrosis due to injury over the last couple of months. Denies any nausea, vomiting, fever, diarrhea or chills. Through her admission workup, it was noted that with elevated blood sugars, she is now diabetic. REVIEW OF SYSTEMS: Unremarkable. PAST MEDICAL HISTORY: New diagnosis of DM. PAST SURGICAL HISTORY: Cholecystectomy, , breast lumpectomy. SOCIAL HISTORY: Positive for smoking up until 3 days ago. Denies alcohol or illicit drugs. FAMILY HISTORY: Noncontributory. MEDICATIONS: Per HPI. PHYSICAL EXAMINATION: DP and PT diminished, right foot. Mild erythema. There is no streaking. Right second digit is necrotic, swollen, no active drainage. Positive pain on palpation. No crepitus with range of motion. Protective sensation grossly intact. LABORATORY DATA: 11/19/2017: WBC of 12.3, RBC of 4.43, H and H 13.3 and 38.4. ESR of 43. Right foot MRI 11/19/2017: There is some swelling in the second digit, as well as edema within the distal 2/3 of the digit. This edema is noted in the bone marrow. ABIs in 11/2017 with a right TBI 0.58. ASSESSMENT AND PLAN: 1. Right second digit gangrene. 2. New diagnosis of diabetes. RECOMMENDATION: This patient is for right second digit amputation. She is a newly diagnosed diabetic, and as such needs a vascular workup, given her history of smoking. After she is vascularly cleared, she will follow up with , beginning 11/21/2017 for additional surgical intervention. At this point in time, Betadine dressings can be carried out/ Thank you for the kind consult. Kirstie Wei DPM SR/pacheco/ , 08:46 PM , 08:54 PM
[2017-11-20] MEDS ORDERED: Pharmacy Ordered Lab Info OTHER ONE (22:45)
[2017-11-20] MEDS: Sodium Chloride 0.9% 2 ML Flush BID IV.FLUSH SCH (22:51)
[2017-11-21] MEDS: Vancomycin Inj 1,000 MG in Sodium Chlor 0.9% Inj 250 ML IV.SIG SCH (00:11)
[2017-11-21] MEDS: Piperacil/Tazo 4.5 GM Premix 4.5 GM/100 ML BAG IV.SIG SCH ×4 (05:55→23:04)
--- NOTE | 2017-11-21 08:14 | P.PN ---
Subjective Interval history: awake and alert, no complains of pain or fever or chills states erythema and swelling of the foot improving Physical Exam Vital signs: Vital Signs 11/20/17 09:00 11/20/17 12:00 11/20/17 16:00 Temperature 97.8 F 99.5 F Pulse Rate 69 69 81 Respiratory Rate 18 18 Blood Pressure 121/57 L 145/66 H Pulse Oximetry 98 99 11/20/17 20:00 11/20/17 20:01 11/21/17 00:00 Temperature 98.7 F Pulse Rate 81 86 88 Respiratory Rate 16 Blood Pressure 126/66 Pulse Oximetry 99 11/21/17 00:15 11/21/17 04:00 11/21/17 05:35 Temperature 99 F 99.1 F Pulse Rate 88 70 77 Respiratory Rate 15 16 Blood Pressure 158/70 H 116/61 Pulse Oximetry 99 98 Intake & Output 11/20/17 11/21/17 11/21/17 18:59 06:59 18:59 Intake Total 450 / 450 892 / 892 Balance 450 / 450 892 / 892 Weight 75.3 kg Intake: IV 450 / 450 450 / 450 Zosyn 4.5 GM Premix 4.5 gm In 200 / 200 200 / 200 100 ml @ 200 mls/hr IV.SIG Q6H [facility]DR[facility] Rx#:[id number] Vancomycin Inj 1,000 MG In NS 250 / 250 250 / 250 Inj 250 ML @ 250 mls/hr IV.SIG Q12H [facility]DRA Rx#:[id number] Oral 442 / 442 Other: Date of Last Bowel Movement 11/20/17 Narrative: awake and alert, no acute distress anicteric sclerae no nuchal rigidity lungs- no rales, no wheezes regular rhythm abdomen- soft, nontender Extreities- right foot-mild swelling, erythema- has receded- right 2nd digit has necrotic tip and swelling. Nuero exam- non focal Results - Labs CBC & Chem 7: 11/19/17 11:05 11/20/17 06:58 Laboratory Results - last 24 hr 11/20/17 11/20/17 11/20/17 12:08 16:07 19:55 POC Glucose 219 H 207 H 150 H Vancomycin Trough 11/20/17 11/21/17 22:00 07:30 POC Glucose 199 H Vancomycin Trough 11.9 H Microbiology 11/19/17 11:05 Wound - Foot Gram Stain - Final 11/19/17 11:05 Wound - Foot Wound Culture - Preliminary gram negative rods 11/19/17 10:55 Blood - Peripheral Aerobic Blood Culture - Preliminary No growth in 1 day 11/19/17 10:55 Blood - Peripheral Anaerobic Blood Culture - Preliminary No growth in 1 day 11/19/17 11:05 Blood - Peripheral Aerobic Blood Culture - Preliminary No growth in 1 day 11/19/17 11:05 Blood - Peripheral Anaerobic Blood Culture - Preliminary No growth in 1 day - Imaging Impressions Extremity Arterial Study 11/19/17 00:00 CONCLUSION: Findings of mild disease on the right with slightly decreased toe brachial index on the right characteristic of small vessel vascular disease. CT angiography of the abdominal aorta and lower extremities is recommended for further evaluation if clinically indicated. Assessment and Plan - Assessment (1) Osteomyelitis Code(s): M86.9 - Osteomyelitis, unspecified Status: Acute (2) Diabetes mellitus Code(s): E11.9 - Type 2 diabetes mellitus without complications Status: Acute - Plan 52 years old female with Acute Osteomyelitis of right second toe/Surrounding cellulitis- -Currently on vancomycin and Zosyn culture- preliiminary growing- gram negative rods - Podiatry- will likely need amputation- per patient - digit amputation vs TMA - ID ff , ff cultures -Acetaminophen and [place] for pain. -ELVIRA done- if abnormal, may need a vascular surgery consult. Diabetes mellitus, insulin requiring - HbA1c 13, BS in the 190s -Levemir to 10 units twice daily, continue with insulin sliding scale- gadually increase - Diabetic education -Started on CEZAR inhibitor for renal protection Hyperlipidemia Lipitor 10 mg at bedtime Hypertension lisinopril 10 mg daily Full code. SCDs for now. Patient up and ambulating D/w patient- states she has to go back to work - emphasize to her needs to stay- due to infection and possible procedure Patient has no insurance- will ask CM for assistance (1) Osteomyelitis Qualifiers: Osteomyelitis type: unspecified type Osteomyelitis location: foot Laterality : right Qualified Code(s): M86.9 - Osteomyelitis, unspecified
[2017-11-21] MEDS: Lisinopril 10 MG Tablet PO SCH (08:55)
[2017-11-21] MEDS: Insulin NovoLOG Aspart Correctional Sugar Inj SQ SCH ×4 (08:55→20:45)
[2017-11-21] MEDS: Sodium Chloride 0.9% 2 ML Flush BID IV.FLUSH SCH ×2 (08:56→20:46)
[2017-11-21] MEDS: Insulin Detemir Inj 1,000 UNIT/10 ML Vial SQ SCH ×2 (08:56→20:45)
[2017-11-21] MEDS: Acetaminophen 325 MG Tablet PO PRN (08:59)
[2017-11-21] MEDS: Vancomycin Inj 1,250 MG in Sodium Chlor 0.9% Inj 250 ML IV.SIG SCH ×2 (13:09→23:33)
--- NOTE | 2017-11-21 22:29 | P.PNPOD ---
Subjective Interval history: Patient seen bedside. Denies any N,V,F,Ch. No concerns at this time. Physical Exam Vital signs: Vital Signs 11/21/17 00:00 11/21/17 00:15 11/21/17 04:00 Temperature 99 F Pulse Rate 88 88 70 Respiratory Rate 15 Blood Pressure 158/70 H Pulse Oximetry 99 11/21/17 05:35 11/21/17 08:00 11/21/17 09:00 Temperature 99.1 F 99.0 F Pulse Rate 77 78 79 Respiratory Rate 16 18 Blood Pressure 116/61 122/64 Pulse Oximetry 98 95 11/21/17 12:00 11/21/17 16:00 11/21/17 20:00 Temperature 98.7 F 98.9 F 99.1 F Pulse Rate 69 72 81 Respiratory Rate 18 16 18 Blood Pressure 107/57 L 146/80 H 152/70 H Pulse Oximetry 95 100 99 Intake & Output 11/21/17 11/21/17 11/22/17 06:59 18:59 06:59 Intake Total 892 / 892 100 / 100 362.5 / 362.5 Balance 892 / 892 100 / 100 362.5 / 362.5 Weight 75.3 kg Intake: IV 450 / 450 100 / 100 362.5 / 362.5 Zosyn 4.5 GM Premix 4.5 gm In 200 / 200 100 / 100 100 / 100 100 ml @ 200 mls/hr IV.SIG Q6H [facility] Rx#:[id number] Vancomycin Inj 1,000 MG In NS 250 / 250 Inj 250 ML @ 250 mls/hr IV.SIG Q12H [facility] Rx#:[id number] Vancomycin Inj 1,250 MG In NS 262.5 / 262.5 Inj 250 ML @ 250 mls/hr IV.SIG Q12H [facility]DR[facility] Rx#:[id number] Oral 442 / 442 Other: # Voids 2 Date of Last Bowel Movement 11/20/17 Narrative: Right second digit ischemia and gangrene noted, no purulent drainage upon compression. Resolving edema and erythema noted to right forefoot. Medications and Allergies Active Medications: Active Medications Acetaminophen (Tylenol) 650 mg PO Q4H PRN PRN Reason: Headache, fever, pain 1-4 Last Admin: 11/21/17 08:59 Dose: 650 mg Hydrocodone Bitart/Acetaminophen ([place] 5/325) 1 tab PO Q6H PRN PRN Reason: Pain 5-10 Last Admin: 11/20/17 22:49 Dose: 1 tab Al Hydroxide/Mg Hydroxide (Milk Of Magnesia Liq) 30 ml PO Q12H PRN PRN Reason: Mild Constipation Atorvastatin Calcium (Lipitor) 10 mg PO HS [facility] Last Admin: 11/21/17 20:45 Dose: 10 mg Bisacodyl (Dulcolax Supp) 10 mg RECTAL DAILY PRN PRN Reason: SEVERE CONSITIPATION Dextrose (D50w Vial) 50 ml IV.PUSH UNSCH PRN PRN Reason: PER HYPOGLYCEMIA PROTOCOL Glucagon (Glucagon Inj) 1 mg OTHER PRN PRN PRN Reason: for Hypoglycemia Protocol Piperacillin/Tazobactam/Dextrose (Zosyn 4.5 Gm Premix) 4.5 gm in 100 mls @ 200 mls/hr IV.SIG Q6H [facility] Last Infusion: 11/21/17 19:23 Dose: Infused Vancomycin HCl 1,250 mg/ (Sodium Chloride) 262.5 mls @ 250 mls/hr IV.SIG Q12H [facility] Last Infusion: 11/21/17 19:23 Dose: Infused Insulin Aspart (Novolog Insulin Correctional Sugar Inj) 0 unit SQ ACHS [facility]; Protocol Last Admin: 11/21/17 20:45 Dose: 4 unit Insulin Detemir (Levemir Inj) 10 unit SQ BID [facility] Last Admin: 11/21/17 20:45 Dose: 10 unit Lactulose (Lactulose Liq) 30 ml PO DAILY PRN PRN Reason: SEVERE CONSITIPATION Lisinopril (Prinivil) 10 mg PO DAILY [facility] Last Admin: 11/21/17 08:55 Dose: 10 mg Miscellaneous Information ([facility] Ordered Lab Info) 1 each OTHER ONCE ONE Stop: 11/22/17 22:46 Ondansetron HCl (Zofran Inj) 4 mg IV.PUSH Q6H PRN PRN Reason: NAUSEA OR VOMITING Pharmacy Profile Note (Vancomycin Consult Pharmacy) 1 each OTHER UNSCH PRN PRN Reason: Pharmacy to dose Sennosides (Senokot) 17.2 mg PO Q12H PRN PRN Reason: Moderate Constipation Sodium Chloride (Ns Flush) 2 ml IV.FLUSH BID [facility] Last Admin: 11/21/17 20:46 Dose: 2 ml Sodium Chloride (Ns Flush) 2 ml IV.FLUSH PRN PRN PRN Reason: FLUSH AFTER USING IV ACCESS Allergies Allergy/AdvReac Type Severity Reaction Status Date / Time No Known Allergies Allergy Verified 11/19/17 11:44 Home Medications Medication Instructions Recorded Confirmed Type No Known Home Medications 11/19/17 11/19/17 History Results - Labs CBC & Chem 7: 11/19/17 11:05 11/20/17 06:58 Laboratory Results - last 24 hr 11/20/17 11/21/17 11/21/17 22:00 07:30 11:51 POC Glucose 199 H 217 H Vancomycin Trough 11.9 H 11/21/17 11/21/17 17:00 20:35 POC Glucose 98 235 H Vancomycin Trough Microbiology 11/19/17 10:55 Blood - Peripheral Aerobic Blood Culture - Preliminary No growth in 2 days 11/19/17 10:55 Blood - Peripheral Anaerobic Blood Culture - Preliminary No growth in 2 days 11/19/17 11:05 Blood - Peripheral Aerobic Blood Culture - Preliminary No growth in 2 days 11/19/17 11:05 Blood - Peripheral Anaerobic Blood Culture - Preliminary No growth in 2 days 11/19/17 11:05 Wound - Foot Gram Stain - Final 11/19/17 11:05 Wound - Foot Wound Culture - Preliminary Proteus mirabilis gram negative rods Staphylococcus aureus Group B beta Strep Assessment and Plan - Plan 52 year old female with osteomyelitis noted to second digit as well as multiple metatarsal heads on MRI, Right foot infection, Right second digit ischemia Bone scan to r/o questionable OM to metatarsal heads Vascular consult pending NPO after midnight as patient is scheduled for intervention tomorrow however will proceed with surgical intervention once evaluated by vascular surgery and bone scan is resulted
[2017-11-22] MEDS: Piperacil/Tazo 4.5 GM Premix 4.5 GM/100 ML BAG IV.SIG SCH ×4 (04:59→23:30)
[2017-11-22] MEDS: Acetaminophen 325 MG Tablet PO PRN (05:36)
[2017-11-22 06:14] LABS: Glomerular Filtration Rate Greater Than 89 mL/min (>89)
[2017-11-22] MEDS: Insulin NovoLOG Aspart Correctional Sugar Inj SQ SCH ×4 (09:03→22:51)
[2017-11-22] MEDS: Insulin Detemir Inj 1,000 UNIT/10 ML Vial SQ SCH ×2 (09:06→22:52)
[2017-11-22] MEDS: Sodium Chloride 0.9% 2 ML Flush BID IV.FLUSH SCH ×2 (09:10→22:51)
[2017-11-22] MEDS: Lisinopril 10 MG Tablet PO SCH (09:10)
--- NOTE | 2017-11-22 09:35 | P.PNID ---
Subjective Remarks: Patient is a 52-year-old female, presented to the hospital complaining of 4-day history of redness and swelling on her right foot as well as black discoloration of her right second toe over the last 2 days. Patient stated that she developed a blister on her right second toe around the first week of September. She has been doing her own wound care, and what is been happening is that she would develop a scab or some kind of a callus over the area where she had the blister, and then it would come off, and then it would develop again a [place]. This went on over the last 2 months. She had an episode of redness below that second toe back in September, and she took some leftover antibiotic from the and apparently the redness went away. She did not really have any other new problem up until 4 days ago when she woke up and she had noticed that the right second toe is red and swollen. She also had fevers at that time. She was not improving, and about a day prior to admission she had noted black discoloration on that second toe. She presented to the hospital for further evaluation and treatment. She has not had any respiratory complaint, GI or any urinary complaints. Since admission she has not had any fever. Her white count is 12,000. Sed rate is 43. Imaging studies of that right foot is showing multiple abnormalities suggestive of osteomyelitis including findings on the second toe, first toe, as well as some of the metatarsal bones. Patient has known neuropathy and according to her this is been for the last 15 years, and has chronic numbness on both feet. Infectious disease consultation has been requested to evaluate the patient Notes reviewed Temps ok No new complaints Podiatry notes reviewed C/S Proteus, GNR, MSSA, Strep Antibiotics: Vancomycin Zosyn Lines: PIV Past Medical History: delivery delivered Neuropathy Hx of breast surgery Hx of cholecystectomy Allergies/Adverse Reactions: Allergies No Known Allergies Allergy (Verified 11/19/17 11:44) Objective Vital Signs 11/21/17 12:00 11/21/17 16:00 11/21/17 20:00 Temperature 98.7 F 98.9 F 99.1 F Pulse Rate 69 72 81 Respiratory Rate 18 16 18 Blood Pressure 107/57 L 146/80 H 152/70 H Pulse Oximetry 95 100 99 11/22/17 00:00 11/22/17 02:17 11/22/17 04:00 Temperature 98.8 F 98.6 F Pulse Rate 75 71 Respiratory Rate 18 18 18 Blood Pressure 129/60 127/59 L Pulse Oximetry 96 97 11/22/17 08:00 Temperature 98.3 F Pulse Rate 73 Respiratory Rate 20 Blood Pressure 149/69 H Pulse Oximetry 98 Intake & Output 11/21/17 11/22/17 11/22/17 18:59 06:59 18:59 Intake Total 100 / 100 825.0 / 825.0 Balance 100 / 100 825.0 / 825.0 Weight 76 kg Intake: IV 100 / 100 825.0 / 825.0 Zosyn 4.5 GM Premix 4.5 gm In 100 / 100 300 / 300 100 ml @ 200 mls/hr IV.SIG Q6H [facility] Rx#:[id number] Vancomycin Inj 1,250 MG In NS 525.0 / 525.0 Inj 250 ML @ 250 mls/hr IV.SIG Q12H [facility]DR[facility] Rx#:[id number] Other: # Voids 3 11/19/17 11:05 Wound - Foot Gram Stain - Final 11/19/17 11:05 Wound - Foot Wound Culture - Preliminary Proteus mirabilis gram negative rods Staphylococcus aureus Group B beta Strep 11/19/17 10:55 Blood - Peripheral Aerobic Blood Culture - Preliminary No growth in 2 days 11/19/17 10:55 Blood - Peripheral Anaerobic Blood Culture - Preliminary No growth in 2 days 11/19/17 11:05 Blood - Peripheral Aerobic Blood Culture - Preliminary No growth in 2 days 11/19/17 11:05 Blood - Peripheral Anaerobic Blood Culture - Preliminary No growth in 2 days Lab - Chemistry Results 11/20/17 11/20/17 11/20/17 12:08 16:07 19:55 Creatinine Estimated GFR POC Glucose 219 H 207 H 150 H 11/21/17 11/21/17 11/21/17 07:30 11:51 17:00 Creatinine Estimated GFR POC Glucose 199 H 217 H 98 11/21/17 11/22/17 11/22/17 20:35 05:37 07:54 Creatinine 0.66 Estimated GFR Greater than 89 POC Glucose 235 H 120 H Imaging: ITS Impressions Extremity Arterial Study 11/19/17 00:00 CONCLUSION: Findings of mild disease on the right with slightly decreased toe brachial index on the right characteristic of small vessel vascular disease. CT angiography of the abdominal aorta and lower extremities is recommended for further evaluation if clinically indicated. Chest X-Ray 11/19/17 10:46 CONCLUSION: Negative examination. Foot MRI 11/19/17 10:46 CONCLUSION: 1. Evidence of significant soft tissue swelling of the right second toe as well as edema involving the right second middle and distal phalanges. The findings are consistent with probable osteomyelitis and cellulitis of the right second toe. There is joint fluid involving the second proximal interphalangeal joint. There is diffuse marrow edema involving the first distal phalanx with soft tissue swelling/cellulitis involving the great toe also. These findings are also suggestive of probable osteomyelitis and cellulitis of the great toe. There is also evidence of diffuse marrow edema involving the right third and fourth metatarsals and minimal scattered edema within the distal shaft of the first metatarsal raising the possibility of osteomyelitis within these bones. Three-phase bone scan may be helpful for further characterization of these bones if clinically indicated. Diffuse cellulitis is noted along the plantar surface of the midfoot. No deep soft tissue abscess is noted. Physical Exam: GENERAL: awake and alert, not in respiratory distress. SKIN: Cool and dry. No generalized rash HEAD: Atraumatic. Normocephalic. No temporal wasting, or tenderness. EYES: [place] conjunctiva. No petechia or hemorrhage. Pupils equal, round and reactive to light. Extraocular movements full and intact. No scleral icterus. No injection or drainage. EARS, NOSE AND THROAT: Nose without bleeding or purulent nasal discharge. No sinus tenderness. Mucous membranes pink and moist. No oral lesions noted. No exudate. No oral thrush. NECK: Trachea midline. Supple and not tender, no meningeal signs CARDIOVASCULAR: Regular rate and rhythm. No murmurs, rubs or gallops heard RESPIRATORY: Clear to auscultation. Breath sounds equal bilaterally. No rales , wheezing or rhonchi ABDOMEN: Soft, non-tender, nondistended. Bowel sounds present and normoactive. No guarding. No rebound. No organomegaly. EXTREMITIES: No clubbing, cyanosis. R foot with improving edema, erythema on dorsum now minimal, no change in gangrenous second toe. No joint effusions and has good ROM. No calf tenderness. NEUROLOGICAL: Grossly within normal limits. PSYCHIATRIC: Normal affect, calm and cooperative. LINE: No evidence of infection Assessment and Plan - Plan Impression Cellulitis R foot with infected R second toe, osteo findings on MRI - abnormal first toe and MT 3rd and 4th but clinically no evidence of osteo Newly diagnosed DM Known neuropathy Recommendation vascular work-up has been requested by podiatry Continue IV vanco for GPC/MRSA coverage Continue Zosyn for GNR/PSAE coverage Follow C/S and deescalate Abx Monitor progress I will determine course of Abx based on results of work-up and surgical intervention Explained plan to the patient
--- NOTE | 2017-11-22 12:16 | P.PN ---
Subjective Interval history: patient with no complains feels good Physical Exam Vital signs: Vital Signs 11/21/17 16:00 11/21/17 20:00 11/22/17 00:00 Temperature 98.9 F 99.1 F 98.8 F Pulse Rate 72 81 75 Respiratory Rate 16 18 18 Blood Pressure 146/80 H 152/70 H 129/60 Pulse Oximetry 100 99 96 11/22/17 02:17 11/22/17 04:00 11/22/17 08:00 Temperature 98.6 F 98.3 F Pulse Rate 71 73 Respiratory Rate 18 18 20 Blood Pressure 127/59 L 149/69 H Pulse Oximetry 97 98 Intake & Output 11/21/17 11/22/17 11/22/17 18:59 06:59 18:59 Intake Total 100 / 100 825.0 / 825.0 Balance 100 / 100 825.0 / 825.0 Weight 76 kg Intake: IV 100 / 100 825.0 / 825.0 Zosyn 4.5 GM Premix 4.5 gm In 100 / 100 300 / 300 100 ml @ 200 mls/hr IV.SIG Q6H [facility] Rx#:[id number] Vancomycin Inj 1,250 MG In NS 525.0 / 525.0 Inj 250 ML @ 250 mls/hr IV.SIG Q12H [facility] Rx#:[id number] Other: # Voids 3 Narrative: awake and alert, no acute distress anicteric sclerae no nuchal rigidity lungs- no rales, no wheezes regular rhythm abdomen- soft, nontender Extreities- right foot-mild swelling, erythema- continue to improved- erytehma - receded- right 2nd digit has necrotic tip and swelling. Nuero exam- non focal Results - Labs CBC & Chem 7: 11/19/17 11:05 11/22/17 05:37 Laboratory Results - last 24 hr 11/21/17 11/21/17 11/22/17 17:00 20:35 05:37 Creatinine 0.66 Estimated GFR Greater than 89 POC Glucose 98 235 H 11/22/17 07:54 Creatinine Estimated GFR POC Glucose 120 H Microbiology 11/19/17 10:55 Blood - Peripheral Aerobic Blood Culture - Preliminary No growth in 3 days 11/19/17 10:55 Blood - Peripheral Anaerobic Blood Culture - Preliminary No growth in 3 days 11/19/17 11:05 Blood - Peripheral Aerobic Blood Culture - Preliminary No growth in 3 days 11/19/17 11:05 Blood - Peripheral Anaerobic Blood Culture - Preliminary No growth in 3 days 11/19/17 11:05 Wound - Foot Gram Stain - Final 11/19/17 11:05 Wound - Foot Wound Culture - Preliminary Proteus mirabilis gram negative rods Staphylococcus aureus Group B beta Strep Assessment and Plan - Assessment (1) Osteomyelitis Code(s): M86.9 - Osteomyelitis, unspecified Status: Acute (2) Diabetes mellitus Code(s): E11.9 - Type 2 diabetes mellitus without complications Status: Acute - Plan 52 years old female with Acute Osteomyelitis of right second toe/Surrounding cellulitis- -Currently on vancomycin and Zosyn culture- preliiminary growing- gram negative rods - Podiatry- will likely need amputation- per patient - digit amputation vs TMA - ID ff , ff cultures -Acetaminophen and [place] for pain. -ELVIRA done-Vascular surgery ff- for CTA run off study Diabetes mellitus, insulin requiring - HbA1c 13, BS in the 190s -Levemir to 10 units twice daily, continue with insulin sliding scale- gadually increase - Diabetic education -Started on CEZAR inhibitor for renal protection Hyperlipidemia Lipitor 10 mg at bedtime Hypertension lisinopril 10 mg daily Full code. SCDs for now. Patient up and ambulating D/w patient- states she has to go back to work - emphasize to her needs to stay- due to infection and possible procedure ADD 12 LEKG reviewed. CXR reviewed Medically stable to go for procedure Patient has no insurance- will ask CM for assistance (1) Osteomyelitis Qualifiers: Osteomyelitis type: unspecified type Osteomyelitis location: foot Laterality : right Qualified Code(s): M86.9 - Osteomyelitis, unspecified
--- NOTE | 2017-11-22 13:43 | P.PNVS ---
Subjective Subjective/Hospital Course: Patient with gangrene of the toe and stigmata of peripheral vascular disease Full consult dictated CTA with runoff pending Thanks J Objective Vital Signs / I&O: Vital Signs 11/21/17 16:00 11/21/17 20:00 11/22/17 00:00 Temperature 98.9 F 99.1 F 98.8 F Pulse Rate 72 81 75 Respiratory Rate 16 18 18 Blood Pressure 146/80 H 152/70 H 129/60 Pulse Oximetry 100 99 96 11/22/17 02:17 11/22/17 04:00 11/22/17 08:00 Temperature 98.6 F 98.3 F Pulse Rate 71 73 Respiratory Rate 18 18 20 Blood Pressure 127/59 L 149/69 H Pulse Oximetry 97 98 Intake & Output 11/21/17 11/22/17 11/22/17 18:59 06:59 18:59 Intake Total 100 / 100 825.0 / 825.0 Balance 100 / 100 825.0 / 825.0 Weight 76 kg Intake: IV 100 / 100 825.0 / 825.0 Zosyn 4.5 GM Premix 4.5 gm In 100 / 100 300 / 300 100 ml @ 200 mls/hr IV.SIG Q6H [facility]DRA Rx#:[id number] Vancomycin Inj 1,250 MG In NS 525.0 / 525.0 Inj 250 ML @ 250 mls/hr IV.SIG Q12H [facility]DRA Rx#:[id number] Other: # Voids 3 Laboratory Results - last 24 hr 11/21/17 11/21/17 11/22/17 17:00 20:35 05:37 Creatinine 0.66 Estimated GFR Greater than 89 POC Glucose 98 235 H 11/22/17 07:54 Creatinine Estimated GFR POC Glucose 120 H Microbiology 11/19/17 10:55 Aerobic Blood Culture - Preliminary Blood - Peripheral No growth in 3 days Anaerobic Blood Culture - Preliminary No growth in 3 days 11/19/17 11:05 Aerobic Blood Culture - Preliminary Blood - Peripheral No growth in 3 days Anaerobic Blood Culture - Preliminary No growth in 3 days 11/19/17 11:05 Gram Stain - Final Wound - Foot Wound Culture - Preliminary Proteus mirabilis gram negative rods Staphylococcus aureus Group B beta Strep
--- NOTE | 2017-11-22 14:16 | MB ---
cc: Carmelita Matthews MD DATE: 11/22/2017 REASON FOR CONSULTATION: Peripheral vascular disease, gangrene of the 2nd toe of the right foot. HISTORY OF PRESENT ILLNESS: This 52-year-old female presents to emergency department, stating that she developed a blister on the bottom of her right foot somewhere in September this year. Then, about 4 days ago noted a discoloration of the 2nd toe of the right foot, which is now clearly involved in florid gangrene. The patient also has redness over her foot, hence the presentation. PAST MEDICAL HISTORY: Poorly controlled diabetes mellitus and hypertension. PAST SURGICAL HISTORY: , cholecystectomy, biopsy of the breast. SOCIAL HISTORY: The patient smokes about a pack or two a day and does not use drugs. She has been apparently warned repeatedly about smoking, but continued to do the same. She is pretty noncompliant with her medical care. PHYSICAL EXAMINATION: HEENT: A 52-year-old normocephalic and no trauma to the head. Pupils are equal and reactive. Extraocular muscles intact. NECK: Supple. Bilateral carotid pulses. No bruits. No masses in the neck. No thyromegaly. No lymphadenopathy. CHEST: Bilateral breath sounds. HEART: Regular rate and rhythm. ABDOMEN: Soft, positive bowel sounds. No rebound, no guarding, no masses. EXTREMITIES: The patient has palpable femoral pulses, palpable popliteal pulses and then dopplerable dorsalis pedis and posterior tibial bilateral. The patient does have 2nd and 3rd toe swelling with gangrene of the 2nd toe distally. She has erythema spreading over the dorsum of her foot. NEUROLOGIC: The patient is intact. IMPRESSION: Patient with peripheral vascular disease consistent with osteomyelitis and gangrene of the 2nd toe of the right foot. The patient probably has small vessel disease consistent with diabetes mellitus and while her proximal inflow is intact, she probably has some trifurcation disease as well. CTA with runoff is pending. We will continue to follow. MD HANK Henao/rigo , 01:47 PM , 01:55 PM
--- NOTE | 2017-11-22 14:21 | NM ---
EXAM DATE: 11/22/2017 7:22 AM EDT AGE/SEX: 52 years / Female INDICATIONS: Osteomyelitis. Wound on second digit and abnormal MRI. CLINICAL DATA: This is the patient's initial encounter. Patient reports that signs and symptoms have been present for 1 day and indicates a pain score of 0/10. MEDICAL/SURGICAL HISTORY: None. Cholecystectomy. COMPARISON: No prior exams available for comparison. TECHNIQUE: Bone scan was performed in sagittal, axial and coronal planes. Attenuation correction was performed with computed tomography and both the attenuation correction and non-attenuation corrected data sets were reviewed. PRIOR BONE SCANS: No correlative bone scan available for comparison. DOSE: 31.0 mCi Tc99m MDP IV IMAGING: SPECT/CT imaging with fusion was performed. RADIATION DOSE: 2.98 CTDIvol(mGy) FINDINGS: There is increased flow and blood pooling involving the right ankle and foot. There is focal increase d uptake of activity involving the right first distal phalanx, right second proximal and middle phala nges and bases of the right third and fourth metatarsals. These findings are suggestive of osteomyeli tis of these bones and cellulitis. There is also uptake in the region of the left proximal fourth and fifth metatarsals which is indeterminate. MRI with contrast may be helpful for further characterizat ion of this finding if clinically indicated. CONCLUSION: 1. Increased flow and blood pooling involving the right ankle and foot. There is focal increased upt har[place] of activity involving the right first distal phalanx, right second proximal and middle phalanges and bases of the right third and fourth metatarsals. These findings are suggestive of osteomyelitis o f these bones and cellulitis. There is also uptake in the region of the left proximal fourth and fift h metatarsals which is indeterminate. MRI with contrast may be helpful for further characterization o f this finding if clinically indicated. Electronically signed by: Beni Faulkner MD 11/22/2017 2:20 PM EDT
[2017-11-22] MEDS: Vancomycin Inj 1,250 MG in Sodium Chlor 0.9% Inj 250 ML IV.SIG SCH ×2 (14:45→23:29)
--- NOTE | 2017-11-22 15:11 | CT ---
EXAM DATE: 11/22/2017 12:34 PM EDT AGE/SEX: 52 years / Female INDICATIONS: Peripheral vascular disease to both legs. CLINICAL DATA: This is the patient's initial encounter. Patient reports that signs and symptoms have been present for 1 day and indicates a pain score of 4/10. MEDICAL/SURGICAL HISTORY: . Neuropathy. Cholecystectomy. section. Breast surgery. RADIATION DOSE: 2.91 CTDI (mGy) COMPARISON: No prior exams available for comparison. TECHNIQUE: Volumetric scanning was performed using a multi-row detector CT scanner during bolus infu sirisha of 95 ml Omnipaque 350 (iohexol) nonionic water-soluble contrast as a single exam dose. The d candido was post processed with a variety of visualization algorithms including full volume maximum inten sity projection, multi-planar sliding thin slab reformation, curved planar reformation, and surface r endering techniques. Using automated exposure control and adjustment of the mA and/or kV according t o patient size, radiation dose was kept as low as reasonably achievable to obtain optimal diagnostic quality images. DICOM format image data is available electronically for review and comparison. FINDINGS: AORTA: Scattered mild calcified and noncalcified atheromatous plaque throughout the infrarenal aorta without a significant stenosis. Inflow vessels are patent. The celiac, SMA, OTILIA, and renal arteries a re patent. 2 renal arteries supply the right kidney. A single renal artery supplies the left. RIGHT LOWER EXTREMITY: The common femoral artery and profunda femoris are patent. Minimal noncalcifi ed atheromatous plaque throughout the SFA without stenosis. A concentric noncalcified atheromatous pl aque is seen involving the liicj-wuh-vseo popliteal artery generating a significant stenosis. This is 70-80% in nature. It occurs at the level of the femoral metaphysis. The stenosis spans 1.5 cm. The b elow-knee popliteal artery shows mild noncalcified atheromatous plaque without a significant stenosis . Three-vessel runoff is seen to the foot. The peroneal artery and posterior tibial artery are equal in size. The anterior tibial artery is diffusely small in caliber. The dorsalis pedis artery is large ly supplied via the peroneal. LEFT LOWER EXTREMITY: The common femoral artery and profunda femoris are patent. Mild scattered areas of largely noncalcified atheromatous plaque throughout the SFA and popliteal artery without signific ant stenosis. Two-vessel runoff to the foot via the peroneal artery and anterior tibial artery. There is reconstitution distally of the posterior tibial artery. OTHER STRUCTURES: Prior cholecystectomy. There is a 2.2 x 1.6 cm soft tissue nodule within the right groin likely relating to an enlarged solitary lymph node. More normal-appearing lymph nodes are seen within the groin bilaterally. No adenopathy elsewhere. CONCLUSION: 1. Patent inflow. 2. Right lower extremity with 1.5 cm length high-grade stenosis of the kfwot-pww-tdps popliteal esdras ry with three-vessel runoff to the foot. This would be amenable to endovascular repair. 3. Left lower extremity with patent outflow. Two-vessel runoff to the foot. 4. 2.2 cm soft tissue nodule within the right groin likely relates to an enlarged lymph node. No sig ns of adenopathy elsewhere. This likely is reactive in nature. Electronically signed by: Johnny To MD 11/22/2017 3:10 PM EDT
[2017-11-22] MEDS ORDERED: Sodium Chlor 0.9% Inj 500 ML IV.CONT ONE (16:15)
[2017-11-22] MEDS ORDERED: Metoprolol Tartrate 25 MG Tablet PO ONE (16:15)
[2017-11-22] MEDS ORDERED: Chlorhexidine Gluconate 2% 1 Pack (2 Cloths) TOPICAL ONE (16:15)
[2017-11-22] MEDS ORDERED: Ketamine Inj 50 MG/5 ML Syringe IV.PUSH ONE (16:57)
--- NOTE | 2017-11-22 17:12 | P.PNPOD ---
Subjective Interval history: Patient seen bedside in preop. Agrees with planned procedure. Has remained NPO. Physical Exam Vital signs: Vital Signs 11/21/17 20:00 11/22/17 00:00 11/22/17 02:17 Temperature 99.1 F 98.8 F Pulse Rate 81 75 Respiratory Rate 18 18 18 Blood Pressure 152/70 H 129/60 Pulse Oximetry 99 96 11/22/17 04:00 11/22/17 08:00 Temperature 98.6 F 98.3 F Pulse Rate 71 73 Respiratory Rate 18 20 Blood Pressure 127/59 L 149/69 H Pulse Oximetry 97 98 Intake & Output 11/21/17 11/22/17 11/22/17 18:59 06:59 18:59 Intake Total 100 / 100 825.0 / 825.0 100 / 100 Balance 100 / 100 825.0 / 825.0 100 / 100 Weight 76 kg Intake: IV 100 / 100 825.0 / 825.0 100 / 100 Zosyn 4.5 GM Premix 4.5 gm In 100 / 100 300 / 300 100 / 100 100 ml @ 200 mls/hr IV.SIG Q6H [facility] Rx#:[id number] Vancomycin Inj 1,250 MG In NS 525.0 / 525.0 Inj 250 ML @ 250 mls/hr IV.SIG Q12H [facility] Rx#:[id number] Other: # Voids 3 Narrative: No changes to physical exam since 11/21. Continued ischemia and cyanosis to right second digit. Medications and Allergies Active Medications: Active Medications Acetaminophen (Tylenol) 650 mg PO Q4H PRN PRN Reason: Headache, fever, pain 1-4 Last Admin: 11/22/17 05:36 Dose: 650 mg Hydrocodone Bitart/Acetaminophen ([place] 5/325) 1 tab PO Q6H PRN PRN Reason: Pain 5-10 Last Admin: 11/22/17 09:09 Dose: 1 tab Al Hydroxide/Mg Hydroxide (Milk Of Magnesia Liq) 30 ml PO Q12H PRN PRN Reason: Mild Constipation Atorvastatin Calcium (Lipitor) 10 mg PO HS [facility] Last Admin: 11/21/17 20:45 Dose: 10 mg Bisacodyl (Dulcolax Supp) 10 mg RECTAL DAILY PRN PRN Reason: SEVERE CONSITIPATION Dextrose (D50w Vial) 50 ml IV.PUSH UNSCH PRN PRN Reason: PER HYPOGLYCEMIA PROTOCOL Glucagon (Glucagon Inj) 1 mg OTHER PRN PRN PRN Reason: for Hypoglycemia Protocol Piperacillin/Tazobactam/Dextrose (Zosyn 4.5 Gm Premix) 4.5 gm in 100 mls @ 200 mls/hr IV.SIG Q6H [facility] Last Infusion: 11/22/17 14:45 Dose: Infused Vancomycin HCl 1,250 mg/ (Sodium Chloride) 262.5 mls @ 250 mls/hr IV.SIG Q12H [facility] Last Admin: 11/22/17 14:45 Dose: 250 mls/hr Lactated Ringer's (Lr 1000 Ml Inj) 1,000 mls @ 30 mls/hr IV.CONT .Q24H ONE Stop: 11/23/17 16:14 Last Admin: 11/22/17 16:21 Dose: 30 mls/hr Sodium Chloride (Ns Inj) 500 mls @ 30 mls/hr IV.CONT .[id number] ONE Stop: 11/23/17 08:54 Last Admin: 11/22/17 16:22 Dose: Not Given Insulin Aspart (Novolog Insulin Correctional Sugar Inj) 0 unit SQ ACHS [facility]; Protocol Last Admin: 11/22/17 14:07 Dose: Not Given Insulin Detemir (Levemir Inj) 10 unit SQ BID [facility] Last Admin: 11/22/17 09:06 Dose: Not Given Lactulose (Lactulose Liq) 30 ml PO DAILY PRN PRN Reason: SEVERE CONSITIPATION Lisinopril (Prinivil) 10 mg PO DAILY [facility] Last Admin: 11/22/17 09:10 Dose: 10 mg Miscellaneous Information ([facility] Ordered Lab Info) 1 each OTHER ONCE ONE Stop: 11/22/17 22:46 Ondansetron HCl (Zofran Inj) 4 mg IV.PUSH Q6H PRN PRN Reason: NAUSEA OR VOMITING Pharmacy Profile Note (Vancomycin Consult Pharmacy) 1 each OTHER UNSCH PRN PRN Reason: Pharmacy to dose Sennosides (Senokot) 17.2 mg PO Q12H PRN PRN Reason: Moderate Constipation Sodium Chloride (Ns Flush) 2 ml IV.FLUSH BID [facility] Last Admin: 11/22/17 09:10 Dose: 2 ml Sodium Chloride (Ns Flush) 2 ml IV.FLUSH PRN PRN PRN Reason: FLUSH AFTER USING IV ACCESS Allergies Allergy/AdvReac Type Severity Reaction Status Date / Time No Known Allergies Allergy Verified 11/19/17 11:44 Home Medications Medication Instructions Recorded Confirmed Type No Known Home Medications 11/19/17 11/19/17 History Results - Labs CBC & Chem 7: 11/19/17 11:05 11/22/17 05:37 Laboratory Results - last 24 hr 11/21/17 11/21/17 11/22/17 17:00 20:35 05:37 Creatinine 0.66 Estimated GFR Greater than 89 POC Glucose 98 235 H 11/22/17 11/22/17 11/22/17 07:54 14:04 16:18 Creatinine Estimated GFR POC Glucose 120 H 111 H 107 Microbiology 11/19/17 10:55 Blood - Peripheral Aerobic Blood Culture - Preliminary No growth in 3 days 11/19/17 10:55 Blood - Peripheral Anaerobic Blood Culture - Preliminary No growth in 3 days 11/19/17 11:05 Blood - Peripheral Aerobic Blood Culture - Preliminary No growth in 3 days 11/19/17 11:05 Blood - Peripheral Anaerobic Blood Culture - Preliminary No growth in 3 days 11/19/17 11:05 Wound - Foot Gram Stain - Final 11/19/17 11:05 Wound - Foot Wound Culture - Preliminary Proteus mirabilis gram negative rods Staphylococcus aureus Group B beta Strep - Imaging Impressions SPECT Scan-Bone NM 11/22/17 00:00 CONCLUSION: 1. Increased flow and blood pooling involving the right ankle and foot. There is focal increased uptake of activity involving the right first distal phalanx, right second proximal and middle phalanges and bases of the right third and fourth metatarsals. These findings are suggestive of osteomyelitis of these bones and cellulitis. There is also uptake in the region of the left proximal fourth and fifth metatarsals which is indeterminate. MRI with contrast may be helpful for further characterization of this finding if clinically indicated. Aorta w/Runoff CTA 11/22/17 08:37 CONCLUSION: 1. Patent inflow. 2. Right lower extremity with 1.5 cm length high-grade stenosis of the above- the-knee popliteal artery with three-vessel runoff to the foot. This would be amenable to endovascular repair. 3. Left lower extremity with patent outflow. Two-vessel runoff to the foot. 4. 2.2 cm soft tissue nodule within the right groin likely relates to an enlarged lymph node. No signs of adenopathy elsewhere. This likely is reactive in nature. Assessment and Plan - Plan 52 year old female with osteomyelitis noted to second digit as well as multiple metatarsal heads on MRI, Right foot infection, Right second digit ischemia MRI, Bone Scan reviewed Will proceed with right second digit amputation as clinically forefoot stable other than right second digit Will need abx recommendations from infectious disease Discussed with vascular surgery ok to proceed NPO Consent obtained and signed
[2017-11-22] MEDS ORDERED: Succinylcholine Inj 100 MG/5 ML Syringe IV.PUSH ONE (17:29)
[2017-11-22] MEDS ORDERED: Lidocaine PF 1% Inj 5 ML Syringe OTHER ONE (17:29)
--- NOTE | 2017-11-22 18:20 | P.PCN ---
Date of procedure: 11/22/17 Pre-op diagnosis: Right second digit osteomyelitis Post-op diagnosis: same Procedure: Right second digit amputation at metatarsal phalangeal joint Anesthesia: GETA Surgeon: Marly Caban Estimated blood loss (mL): 5 Pathology: none sent (1. Right second digit for path 2. Soft tissue for micro) Condition: stable Disposition: PACU
[2017-11-22] MEDS ORDERED: Misc Info for Pharmacy OTHER STA (18:21)
[2017-11-22] MEDS ORDERED: fentaNYL Citrate Inj 100 MCG/2 ML Ampul ONE (18:27)
--- NOTE | 2017-11-22 19:00 | XR ---
EXAM DATE: 11/22/2017 12:00 AM EDT AGE/SEX: 52 years / Female INDICATIONS: Post op right foot surgery. CLINICAL DATA: This is the patient's initial encounter. Patient reports that signs and symptoms have been present for 1 day and indicates a pain score of 0/10. MEDICAL/SURGICAL HISTORY: None. Angioplasty. COMPARISON: [facility] [place], [place] BONE SCAN SPECT, 11/22/2017. [facility] [place], [place] FOOT RIGHT W & W/O CONTRAST, 11/19/2017. . FINDINGS: Since the MRI, second toe has been amputated. Cortical indistinctness seen of the medial tip of the great toe distal phalanx. This appears to be re lated to some focal soft tissue ulceration along the medial aspect of the distal nail bed on the MRI and abnormal radiotracer uptake on the bone scan. CONCLUSION: 1. Second toe amputated without evidence of an acute complication. 2. Possible focal osteomyelitis of the distal tuft of the great toe distal phalanx as described. Electronically signed by: Jensen Sood MD 11/22/2017 6:58 PM EDT
[2017-11-22] MEDS ORDERED: Pharmacy Ordered Lab Info OTHER ONE (22:45)
[2017-11-23] MEDS: Piperacil/Tazo 4.5 GM Premix 4.5 GM/100 ML BAG IV.SIG SCH ×4 (04:38→22:10)
[2017-11-23] MEDS: Acetaminophen 325 MG Tablet PO PRN (04:46)
--- NOTE | 2017-11-23 09:07 | P.PN ---
Subjective Interval history: awake and alert no complains asking when she can go home BS better readings Physical Exam Vital signs: Vital Signs 11/22/17 20:00 11/22/17 23:30 11/23/17 00:00 Temperature 98.2 F 98.9 F Pulse Rate 83 86 Respiratory Rate 18 19 18 Blood Pressure 162/73 H 158/72 H Pulse Oximetry 96 95 11/23/17 04:00 Temperature 98.4 F Pulse Rate 72 Respiratory Rate 18 Blood Pressure 128/60 Pulse Oximetry 97 Intake & Output 11/22/17 11/23/17 11/23/17 18:59 06:59 18:59 Intake Total 562.5 / 562.5 462.5 / 462.5 Output Total 5 / 5 Balance 557.5 / 557.5 462.5 / 462.5 Weight 74.8 kg Intake: IV 362.5 / 362.5 462.5 / 462.5 Zosyn 4.5 GM Premix 4.5 gm In 100 / 100 200 / 200 100 ml @ 200 mls/hr IV.SIG Q6H [facility] Rx#:[id number] Vancomycin Inj 1,250 MG In NS 262.5 / 262.5 262.5 / 262.5 Inj 250 ML @ 250 mls/hr IV.SIG Q12H [facility] Rx#:[id number] Anesthesia Amount 200 / 200 Output: Estimated Blood Loss 5 / 5 Other: # Voids 3 3 Date of Last Bowel Movement 11/20/17 Narrative: awake and alert, no acute distress anicteric sclerae no nuchal rigidity lungs- no rales, no wheezes regular rhythm abdomen- soft, nontender rihgt foot- post op dressing intact Results - Labs CBC & Chem 7: 11/19/17 11:05 11/22/17 05:37 Laboratory Results - last 24 hr 11/22/17 11/22/17 11/22/17 14:04 16:18 18:26 POC Glucose 111 H 107 111 H Vancomycin Trough 11/22/17 11/22/17 11/23/17 22:30 23:07 08:24 POC Glucose 154 H 133 H Vancomycin Trough 17.5 H Microbiology 11/19/17 11:05 Wound - Foot Gram Stain - Final 11/19/17 11:05 Wound - Foot Wound Culture - Final Proteus mirabilis Alcaligenes faecalis Staphylococcus aureus Group B beta Strep 11/19/17 10:55 Blood - Peripheral Aerobic Blood Culture - Preliminary No growth in 3 days 11/19/17 10:55 Blood - Peripheral Anaerobic Blood Culture - Preliminary No growth in 3 days 11/19/17 11:05 Blood - Peripheral Aerobic Blood Culture - Preliminary No growth in 3 days 11/19/17 11:05 Blood - Peripheral Anaerobic Blood Culture - Preliminary No growth in 3 days - Imaging Impressions Foot X-Ray 11/22/17 00:00 CONCLUSION: 1. Second toe amputated without evidence of an acute complication. 2. Possible focal osteomyelitis of the distal tuft of the great toe distal phalanx as described. SPECT Scan-Bone NM 11/22/17 00:00 CONCLUSION: 1. Increased flow and blood pooling involving the right ankle and foot. There is focal increased uptake of activity involving the right first distal phalanx, right second proximal and middle phalanges and bases of the right third and fourth metatarsals. These findings are suggestive of osteomyelitis of these bones and cellulitis. There is also uptake in the region of the left proximal fourth and fifth metatarsals which is indeterminate. MRI with contrast may be helpful for further characterization of this finding if clinically indicated. Aorta w/Runoff CTA 11/22/17 08:37 CONCLUSION: 1. Patent inflow. 2. Right lower extremity with 1.5 cm length high-grade stenosis of the above- the-knee popliteal artery with three-vessel runoff to the foot. This would be amenable to endovascular repair. 3. Left lower extremity with patent outflow. Two-vessel runoff to the foot. 4. 2.2 cm soft tissue nodule within the right groin likely relates to an enlarged lymph node. No signs of adenopathy elsewhere. This likely is reactive in nature. - Procedures 11/22 Right second digit amputation at metatarsal phalangeal joint Assessment and Plan - Assessment (1) Osteomyelitis Code(s): M86.9 - Osteomyelitis, unspecified Status: Acute (2) Diabetes mellitus Code(s): E11.9 - Type 2 diabetes mellitus without complications Status: Acute - Plan 52 years old female with Acute Osteomyelitis of right second toe/Surrounding cellulitis- S/P right toe digit amputation 11/22-Cultures- Proteus/S. aureus -Currently on vancomycin and Zosyn culture- preliiminary growing- gram negative rods - ID ff , ff cultures -Acetaminophen and [place] for pain. PAD-right Popliteal artery stenosis Vascular surgery ff - will defer to them for intervention Diabetes mellitus, insulin requiring - HbA1c 13, BS better -Levemir to 10 units twice daily, continue with insulin sliding scale- gadually increase - Diabetic education -Started on CEZAR inhibitor for renal protection Hyperlipidemia Lipitor 10 mg at bedtime Hypertension lisinopril 10 mg daily Full code. SCDs for now. 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
[2017-11-23] MEDS: Lisinopril 10 MG Tablet PO SCH (10:29)
[2017-11-23] MEDS: Insulin Detemir Inj 1,000 UNIT/10 ML Vial SQ SCH ×2 (10:30→22:14)
[2017-11-23] MEDS: Insulin NovoLOG Aspart Correctional Sugar Inj SQ SCH ×4 (10:30→22:14)
[2017-11-23] MEDS: Sodium Chloride 0.9% 2 ML Flush BID IV.FLUSH SCH ×2 (10:31→22:10)
--- NOTE | 2017-11-23 11:51 | P.PNVS ---
Subjective Subjective/Hospital Course: Patient with gangrene of the toe and stigmata of peripheral vascular disease Full consult dictated CTA with runoff pending Rayshawn Luna 11/23/2017 I have reviewed the CTA with a runoff. As suspected from the clinical exam patient has good inflow and then the problems start and the distal SFA where patient has a tight narrowing on the right side. In addition patient has small vessel disease in both feet Will go ahead with endovascular balloon dilatation of the right distal SFA/ popliteal artery on Saturday Objective Vital Signs / I&O: Vital Signs 11/22/17 20:00 11/22/17 23:30 11/23/17 00:00 Temperature 98.2 F 98.9 F Pulse Rate 83 86 Respiratory Rate 18 19 18 Blood Pressure 162/73 H 158/72 H Pulse Oximetry 96 95 11/23/17 04:00 11/23/17 08:00 Temperature 98.4 F 98.2 F Pulse Rate 72 72 Respiratory Rate 18 16 Blood Pressure 128/60 133/66 Pulse Oximetry 97 98 Intake & Output 11/22/17 11/23/17 11/23/17 18:59 06:59 18:59 Intake Total 562.5 / 562.5 462.5 / 462.5 Output Total 5 / 5 Balance 557.5 / 557.5 462.5 / 462.5 Weight 74.8 kg Intake: IV 362.5 / 362.5 462.5 / 462.5 Zosyn 4.5 GM Premix 4.5 gm In 100 / 100 200 / 200 100 ml @ 200 mls/hr IV.SIG Q6H [facility] Rx#:[id number] Vancomycin Inj 1,250 MG In NS 262.5 / 262.5 262.5 / 262.5 Inj 250 ML @ 250 mls/hr IV.SIG Q12H [facility] Rx#:[id number] Anesthesia Amount 200 / 200 Output: Estimated Blood Loss 5 / 5 Other: # Voids 3 3 Date of Last Bowel Movement 11/20/17 Laboratory Results - last 24 hr 11/22/17 11/22/17 11/22/17 14:04 16:18 18:26 POC Glucose 111 H 107 111 H Vancomycin Trough 11/22/17 11/22/17 11/23/17 22:30 23:07 08:24 POC Glucose 154 H 133 H Vancomycin Trough 17.5 H Microbiology 10/02/18 10:55 Aerobic Blood Culture - Preliminary Blood - Peripheral No growth in 4 days Anaerobic Blood Culture - Preliminary No growth in 4 days 11/19/17 11:05 Aerobic Blood Culture - Preliminary Blood - Peripheral No growth in 4 days Anaerobic Blood Culture - Preliminary No growth in 4 days 11/22/17 18:02 Gram Stain - Final Tissue - Foot 11/19/17 11:05 Gram Stain - Final Wound - Foot Wound Culture - Final Proteus mirabilis Alcaligenes faecalis Staphylococcus aureus Group B beta Strep Impressions Foot X-Ray 11/22/17 00:00 CONCLUSION: 1. Second toe amputated without evidence of an acute complication. 2. Possible focal osteomyelitis of the distal tuft of the great toe distal phalanx as described. SPECT Scan-Bone NM 11/22/17 00:00 CONCLUSION: 1. Increased flow and blood pooling involving the right ankle and foot. There is focal increased uptake of activity involving the right first distal phalanx, right second proximal and middle phalanges and bases of the right third and fourth metatarsals. These findings are suggestive of osteomyelitis of these bones and cellulitis. There is also uptake in the region of the left proximal fourth and fifth metatarsals which is indeterminate. MRI with contrast may be helpful for further characterization of this finding if clinically indicated. Aorta w/Runoff CTA 11/22/17 08:37 CONCLUSION: 1. Patent inflow. 2. Right lower extremity with 1.5 cm length high-grade stenosis of the above- the-knee popliteal artery with three-vessel runoff to the foot. This would be amenable to endovascular repair. 3. Left lower extremity with patent outflow. Two-vessel runoff to the foot. 4. 2.2 cm soft tissue nodule within the right groin likely relates to an enlarged lymph node. No signs of adenopathy elsewhere. This likely is reactive in nature.
[2017-11-23] MEDS: Vancomycin Inj 1,250 MG in Sodium Chlor 0.9% Inj 250 ML IV.SIG SCH ×2 (12:55→23:40)
--- NOTE | 2017-11-23 13:18 | ECG ---
Date Performed: 11/22/2017 Time Performed: 15:33:42 PTAGE: 52 years EKG: Sinus rhythm POSSIBLE LEFT ATRIAL ENLARGEMENT BORDERLINE ECG PREVIOUS TRACING : 02/01/2010 13.43 DOCTOR: Russ Dorsey Interpretating Date/Time 11/23/2017 13:13:02
--- NOTE | 2017-11-23 14:53 | P.PNPOD ---
Subjective Interval history: Patient seen bedside, resting comfortably. States she has not been weightbearing to operative foot. Denies any nausea vomiting fevers or chills. Physical Exam Vital signs: Vital Signs 11/22/17 20:00 11/22/17 23:30 11/23/17 00:00 Temperature 98.2 F 98.9 F Pulse Rate 83 86 Respiratory Rate 18 19 18 Blood Pressure 162/73 H 158/72 H Pulse Oximetry 96 95 11/23/17 04:00 11/23/17 08:00 11/23/17 12:00 Temperature 98.4 F 98.2 F 98.7 F Pulse Rate 72 72 73 Respiratory Rate 18 16 16 Blood Pressure 128/60 133/66 130/61 Pulse Oximetry 97 98 97 Intake & Output 11/22/17 11/23/17 11/23/17 18:59 06:59 18:59 Intake Total 562.5 / 562.5 462.5 / 462.5 100 / 100 Output Total 5 / 5 Balance 557.5 / 557.5 462.5 / 462.5 100 / 100 Weight 74.8 kg Intake: IV 362.5 / 362.5 462.5 / 462.5 100 / 100 Zosyn 4.5 GM Premix 4.5 gm In 100 / 100 200 / 200 100 / 100 100 ml @ 200 mls/hr IV.SIG Q6H [facility] Rx#:[id number] Vancomycin Inj 1,250 MG In NS 262.5 / 262.5 262.5 / 262.5 Inj 250 ML @ 250 mls/hr IV.SIG Q12H [facility] Rx#:[id number] Anesthesia Amount 200 / 200 Output: Estimated Blood Loss 5 / 5 Other: # Voids 3 3 Date of Last Bowel Movement 11/20/17 11/19/17 Narrative: Dressing intact to right lower extremity no strikethrough noted. Capillary refill time to digits present under 3 seconds. No ascending erythema noted to right ankle. Due to lytic lesion noted on distal phalanx of right foot x-ray thoroughly examined right hallux no onycholysis noted to nail no drainage upon compression no open lesions noted, no clinical signs of infection to right hallux. Medications and Allergies Active Medications: Active Medications Acetaminophen (Tylenol) 650 mg PO Q4H PRN PRN Reason: Headache, fever, pain 1-4 Last Admin: 11/23/17 04:46 Dose: 650 mg Hydrocodone Bitart/Acetaminophen ([place] 5/325) 1 tab PO Q6H PRN PRN Reason: Pain 5-10 Last Admin: 11/23/17 10:40 Dose: 1 tab Al Hydroxide/Mg Hydroxide (Milk Of Magnesia Liq) 30 ml PO Q12H PRN PRN Reason: Mild Constipation Atorvastatin Calcium (Lipitor) 10 mg PO HS [facility] Last Admin: 11/22/17 22:50 Dose: 10 mg Bisacodyl (Dulcolax Supp) 10 mg RECTAL DAILY PRN PRN Reason: SEVERE CONSITIPATION Dextrose (D50w Vial) 50 ml IV.PUSH UNSCH PRN PRN Reason: PER HYPOGLYCEMIA PROTOCOL Glucagon (Glucagon Inj) 1 mg OTHER PRN PRN PRN Reason: for Hypoglycemia Protocol Piperacillin/Tazobactam/Dextrose (Zosyn 4.5 Gm Premix) 4.5 gm in 100 mls @ 200 mls/hr IV.SIG Q6H [facility] Last Infusion: 11/23/17 11:50 Dose: Infused Vancomycin HCl 1,250 mg/ (Sodium Chloride) 262.5 mls @ 250 mls/hr IV.SIG Q12H [facility] Last Admin: 11/23/17 12:55 Dose: 175 mls/hr Lactated Ringer's (Lr 1000 Ml Inj) 1,000 mls @ 30 mls/hr IV.CONT .Q24H ONE Stop: 11/23/17 16:14 Last Admin: 11/22/17 16:21 Dose: 30 mls/hr Insulin Aspart (Novolog Insulin Correctional Sugar Inj) 0 unit SQ ACHS [facility]; Protocol Last Admin: 11/23/17 12:58 Dose: 4 unit Insulin Detemir (Levemir Inj) 10 unit SQ BID [facility] Last Admin: 11/23/17 10:30 Dose: 10 unit Lactulose (Lactulose Liq) 30 ml PO DAILY PRN PRN Reason: SEVERE CONSITIPATION Lisinopril (Prinivil) 10 mg PO DAILY [facility] Last Admin: 11/23/17 10:29 Dose: 10 mg Miscellaneous Information (Misc Nursing Information) 1 each OTHER UNSCH PRN PRN Reason: SEE LABEL COMMENTS Stop: 11/23/17 19:07 Ondansetron HCl (Zofran Inj) 4 mg IV.PUSH Q6H PRN PRN Reason: NAUSEA OR VOMITING Pharmacy Profile Note (Vancomycin Consult Pharmacy) 1 each OTHER UNSCH PRN PRN Reason: Pharmacy to dose Sennosides (Senokot) 17.2 mg PO Q12H PRN PRN Reason: Moderate Constipation Sodium Chloride (Ns Flush) 2 ml IV.FLUSH BID [facility] Last Admin: 11/23/17 10:31 Dose: 2 ml Sodium Chloride (Ns Flush) 2 ml IV.FLUSH PRN PRN PRN Reason: FLUSH AFTER USING IV ACCESS Allergies Allergy/AdvReac Type Severity Reaction Status Date / Time No Known Allergies Allergy Verified 11/19/17 11:44 Home Medications Medication Instructions Recorded Confirmed Type No Known Home Medications 11/19/17 11/19/17 History Results - Labs CBC & Chem 7: 11/19/17 11:05 11/22/17 05:37 Laboratory Results - last 24 hr 11/22/17 11/22/17 11/22/17 16:18 18:26 22:30 POC Glucose 107 111 H 154 H Vancomycin Trough 11/22/17 11/23/17 11/23/17 23:07 08:24 11:44 POC Glucose 133 H 212 H Vancomycin Trough 17.5 H Microbiology 11/22/17 18:02 Tissue - Foot Gram Stain - Final 11/22/17 18:02 Tissue - Foot Wound Culture - Preliminary Results Pending 11/19/17 10:55 Blood - Peripheral Aerobic Blood Culture - Preliminary No growth in 4 days 11/19/17 10:55 Blood - Peripheral Anaerobic Blood Culture - Preliminary No growth in 4 days 11/19/17 11:05 Blood - Peripheral Aerobic Blood Culture - Preliminary No growth in 4 days 11/19/17 11:05 Blood - Peripheral Anaerobic Blood Culture - Preliminary No growth in 4 days 11/19/17 11:05 Wound - Foot Gram Stain - Final 11/19/17 11:05 Wound - Foot Wound Culture - Final Proteus mirabilis Alcaligenes faecalis Staphylococcus aureus Group B beta Strep - Imaging Impressions Foot X-Ray 11/22/17 00:00 CONCLUSION: 1. Second toe amputated without evidence of an acute complication. 2. Possible focal osteomyelitis of the distal tuft of the great toe distal phalanx as described. Aorta w/Runoff CTA 11/22/17 08:37 CONCLUSION: 1. Patent inflow. 2. Right lower extremity with 1.5 cm length high-grade stenosis of the above- the-knee popliteal artery with three-vessel runoff to the foot. This would be amenable to endovascular repair. 3. Left lower extremity with patent outflow. Two-vessel runoff to the foot. 4. 2.2 cm soft tissue nodule within the right groin likely relates to an enlarged lymph node. No signs of adenopathy elsewhere. This likely is reactive in nature. - Procedures 11/22 Right second digit amputation at metatarsal phalangeal joint Assessment and Plan - Plan 52 year old female with osteomyelitis noted to second digit as well as multiple metatarsal heads on MRI, Right foot infection, Right second digit ischemia Heel weightbearing in surgical shoe to right lower extremity We will await the OR cultures and pathology Will remove surgical dressing tomorrow and evaluate incision ID recommendations on outpatient antibiotics If there is clinical improvement noted to right foot infection will recommend discharge
[2017-11-23 17:02] LABS: Baso # (Auto) 0.1 th/mm3 (0.0-0.2); Baso % (Auto) 0.7 % (0.0-2.0); Eos # (Auto) 0.2 th/mm3 (0.0-0.4); Eos % (Auto) 2.1 % (0.0-4.0); Hematocrit 33.1 % (35.0-46.0); Hemoglobin 11.1 gm/dL (11.6-15.3); Lymph # (Auto) 2.6 th/mm3 (1.0-4.8); Lymph % (Auto) 22.9 % (9.0-44.0); Mean Corpuscular HGB Conc 33.5 % (32.0-36.0); Mean Corpuscular Hemoglobin 29.3 pg (27.0-34.0); Mean Corpuscular Volume 87.5 fL (80.0-100.0); Mean Platelet Volume 8.7 fL (7.0-11.0); Mono # (Auto) 0.7 th/mm3 (0.0-0.9); Neut # (Auto) 7.6 th/mm3 (1.8-7.7); Neut % (Auto) 68.3 % (16.0-70.0); Platelet Count 237 th/mm3 (150-450); Red Blood Count 3.78 mil/mm3 (4.00-5.30); Red Cell Distribution Width 13.2 % (11.6-17.2); White Blood Count 11.2 th/mm3 (4.0-11.0)
[2017-11-24] MEDS: Piperacil/Tazo 4.5 GM Premix 4.5 GM/100 ML BAG IV.SIG SCH ×4 (05:45→23:25)
[2017-11-24] MEDS: Sodium Chloride 0.9% 2 ML Flush BID IV.FLUSH SCH ×2 (09:15→20:17)
[2017-11-24] MEDS: Lisinopril 10 MG Tablet PO SCH (09:16)
[2017-11-24] MEDS: Insulin Detemir Inj 1,000 UNIT/10 ML Vial SQ SCH ×2 (09:16→20:17)
[2017-11-24] MEDS ORDERED: Insulin Detemir Inj 1,000 UNIT/10 ML Vial SQ SCH (11:00)
[2017-11-24] MEDS: Insulin NovoLOG Aspart Correctional Sugar Inj SQ SCH ×4 (11:02→20:17)
--- NOTE | 2017-11-24 11:02 | P.PN ---
Subjective Interval history: no complains of pain, no diarrhea Physical Exam Vital signs: Vital Signs 11/23/17 12:00 11/23/17 16:00 11/23/17 19:21 Temperature 98.7 F 97.9 F Pulse Rate 73 75 74 Respiratory Rate 16 18 Blood Pressure 130/61 138/64 Pulse Oximetry 97 97 11/23/17 20:00 11/24/17 00:00 11/24/17 04:00 Temperature 98.9 F 98.6 F 98.2 F Pulse Rate 76 73 73 Respiratory Rate 16 16 16 Blood Pressure 151/70 H 111/58 L 132/57 L Pulse Oximetry 96 97 96 11/24/17 08:00 Temperature 97.8 F Pulse Rate 77 Respiratory Rate 14 Blood Pressure 153/70 H Pulse Oximetry 98 Intake & Output 11/23/17 11/24/17 11/24/17 18:59 06:59 18:59 Intake Total 362.5 / 362.5 2882.5 / 2882.5 Balance 362.5 / 362.5 2882.5 / 2882.5 Weight 74.8 kg Intake: IV 362.5 / 362.5 1562.5 / 1562.5 LR 1000 mL Inj 1,000 ML @ 30 1000 / 1000 mls/hr IV.CONT .Q24H [facility] Rx#: [id number] Zosyn 4.5 GM Premix 4.5 gm In 100 / 100 300 / 300 100 ml @ 200 mls/hr IV.SIG Q6H [facility] Rx#:[id number] Vancomycin Inj 1,250 MG In NS 262.5 / 262.5 262.5 / 262.5 Inj 250 ML @ 250 mls/hr IV.SIG Q12H [facility] Rx#:[id number] Oral 1320 / 1320 Other: # Voids 8 Date of Last Bowel Movement 11/19/17 Narrative: awake and alert, no acute distress anicteric sclerae no nuchal rigidity lungs- no rales, no wheezes regular rhythm abdomen- soft, nontender rihgt foot- post op dressing intact, able to wiggle toes, no calf tenderness Results - Labs CBC & Chem 7: 11/23/17 16:47 11/24/17 06:28 Laboratory Results - last 24 hr 11/23/17 11/23/17 11/23/17 11:44 16:47 17:16 WBC 11.2 H RBC 3.78 L Hgb 11.1 L Hct 33.1 L MCV 87.5 MCH 29.3 MCHC 33.5 RDW 13.2 Plt Count 237 MPV 8.7 Neut % (Auto) 68.3 Lymph % (Auto) 22.9 [place] % (Auto) 6.0 Eos % (Auto) 2.1 Baso % (Auto) 0.7 Neut # (Auto) 7.6 Lymph # (Auto) 2.6 [place] # (Auto) 0.7 Eos # (Auto) 0.2 Baso # (Auto) 0.1 WBC Differential . Differential Comment Auto diff final Creatinine Estimated GFR POC Glucose 212 H 218 H 11/23/17 11/24/17 11/24/17 21:40 06:28 07:39 WBC RBC Hgb Hct MCV MCH MCHC RDW Plt Count MPV Neut % (Auto) Lymph % (Auto) [place] % (Auto) Eos % (Auto) Baso % (Auto) Neut # (Auto) Lymph # (Auto) [place] # (Auto) Eos # (Auto) Baso # (Auto) WBC Differential Differential Comment Creatinine 0.75 Estimated GFR 81 L POC Glucose 238 H 137 H Microbiology 11/22/17 18:02 Tissue - Foot Gram Stain - Final 11/22/17 18:02 Tissue - Foot Wound Culture - Preliminary No growth in 48 hours 11/19/17 10:55 Blood - Peripheral Aerobic Blood Culture - Preliminary No growth in 4 days 11/19/17 10:55 Blood - Peripheral Anaerobic Blood Culture - Preliminary No growth in 4 days 11/19/17 11:05 Blood - Peripheral Aerobic Blood Culture - Preliminary No growth in 4 days 11/19/17 11:05 Blood - Peripheral Anaerobic Blood Culture - Preliminary No growth in 4 days 11/19/17 11:05 Wound - Foot Gram Stain - Final 11/19/17 11:05 Wound - Foot Wound Culture - Final Proteus mirabilis Alcaligenes faecalis Staphylococcus aureus Group B beta Strep - Procedures 11/22 Right second digit amputation at metatarsal phalangeal joint Assessment and Plan - Assessment (1) Osteomyelitis Code(s): M86.9 - Osteomyelitis, unspecified Status: Acute (2) Diabetes mellitus Code(s): E11.9 - Type 2 diabetes mellitus without complications Status: Acute - Plan 52 years old female with Acute Osteomyelitis of right second toe/Surrounding cellulitis- S/P right toe digit amputation 11/22-Cultures- Proteus/S. aureus -Currently on vancomycin and Zosyn culture - ID ff -Acetaminophen and [place] for pain. PAD-right Popliteal artery stenosis Vascular surgery ff - - amenable endovascular intervention- plan for Saturday per Diabetes mellitus, insulin requiring - HbA1c 13, BS better -Levemir to 10 units twice daily, continue with insulin sliding scale- gadually increase to 15 units bid - Diabetic education -Started on CEZAR inhibitor for renal protection Hyperlipidemia Lipitor 10 mg at bedtime Hypertension lisinopril 10 mg daily Full code. SCDs for now. 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
--- NOTE | 2017-11-24 12:05 | P.PNPOD ---
Subjective Interval history: Patient seen bedside. Denies any nausea vomiting fevers or chills. No concerns at this time. States she will be undergoing vascular surgery tomorrow to right leg. Physical Exam Vital signs: Vital Signs 11/23/17 16:00 11/23/17 19:21 11/23/17 20:00 Temperature 97.9 F 98.9 F Pulse Rate 75 74 76 Respiratory Rate 18 16 Blood Pressure 138/64 151/70 H Pulse Oximetry 97 96 11/24/17 00:00 11/24/17 04:00 11/24/17 08:00 Temperature 98.6 F 98.2 F 97.8 F Pulse Rate 73 73 77 Respiratory Rate 16 16 14 Blood Pressure 111/58 L 132/57 L 153/70 H Pulse Oximetry 97 96 98 Intake & Output 11/23/17 11/24/17 11/24/17 18:59 06:59 18:59 Intake Total 362.5 / 362.5 2882.5 / 2882.5 Balance 362.5 / 362.5 2882.5 / 2882.5 Weight 74.8 kg Intake: IV 362.5 / 362.5 1562.5 / 1562.5 LR 1000 mL Inj 1,000 ML @ 30 1000 / 1000 mls/hr IV.CONT .Q24H [facility] Rx#: [id number] Zosyn 4.5 GM Premix 4.5 gm In 100 / 100 300 / 300 100 ml @ 200 mls/hr IV.SIG Q6H [facility] Rx#:[id number] Vancomycin Inj 1,250 MG In NS 262.5 / 262.5 262.5 / 262.5 Inj 250 ML @ 250 mls/hr IV.SIG Q12H [facility] Rx#:[id number] Oral 1320 / 1320 Other: # Voids 8 Date of Last Bowel Movement 11/19/17 Narrative: Sutures intact with skin well coapted to right second interspace. Resolving erythema and edema noted. Capillary refill time intact to digits x4 right foot. No pain on calf squeeze. Medications and Allergies Active Medications: Active Medications Acetaminophen (Tylenol) 650 mg PO Q4H PRN PRN Reason: Headache, fever, pain 1-4 Last Admin: 11/23/17 04:46 Dose: 650 mg Hydrocodone Bitart/Acetaminophen ([place] 5/325) 1 tab PO Q6H PRN PRN Reason: Pain 5-10 Last Admin: 11/23/17 10:40 Dose: 1 tab Al Hydroxide/Mg Hydroxide (Milk Of Magnesia Liq) 30 ml PO Q12H PRN PRN Reason: Mild Constipation Last Admin: 11/23/17 18:16 Dose: 30 ml Atorvastatin Calcium (Lipitor) 10 mg PO HS [facility] Last Admin: 11/23/17 22:13 Dose: 10 mg Bisacodyl (Dulcolax Supp) 10 mg RECTAL DAILY PRN PRN Reason: SEVERE CONSITIPATION Dextrose (D50w Vial) 50 ml IV.PUSH UNSCH PRN PRN Reason: PER HYPOGLYCEMIA PROTOCOL Glucagon (Glucagon Inj) 1 mg OTHER PRN PRN PRN Reason: for Hypoglycemia Protocol Piperacillin/Tazobactam/Dextrose (Zosyn 4.5 Gm Premix) 4.5 gm in 100 mls @ 200 mls/hr IV.SIG Q6H [facility] Last Admin: 11/24/17 11:33 Dose: 200 mls/hr Vancomycin HCl 1,250 mg/ (Sodium Chloride) 262.5 mls @ 250 mls/hr IV.SIG Q12H [facility] Last Infusion: 11/24/17 01:12 Dose: Infused Insulin Aspart (Novolog Insulin Correctional Sugar Inj) 0 unit SQ ACHS [facility]; Protocol Last Admin: 11/24/17 11:02 Dose: Not Given Insulin Detemir (Levemir Inj) 15 unit SQ BID [facility] Lactulose (Lactulose Liq) 30 ml PO DAILY PRN PRN Reason: SEVERE CONSITIPATION Lisinopril (Prinivil) 10 mg PO DAILY [facility] Last Admin: 11/24/17 09:16 Dose: 10 mg Ondansetron HCl (Zofran Inj) 4 mg IV.PUSH Q6H PRN PRN Reason: NAUSEA OR VOMITING Pharmacy Profile Note (Vancomycin Consult Pharmacy) 1 each OTHER UNSCH PRN PRN Reason: Pharmacy to dose Sennosides (Senokot) 17.2 mg PO Q12H PRN PRN Reason: Moderate Constipation Sodium Chloride (Ns Flush) 2 ml IV.FLUSH BID [facility] Last Admin: 11/24/17 09:15 Dose: 2 ml Sodium Chloride (Ns Flush) 2 ml IV.FLUSH PRN PRN PRN Reason: FLUSH AFTER USING IV ACCESS Allergies Allergy/AdvReac Type Severity Reaction Status Date / Time No Known Allergies Allergy Verified 11/19/17 11:44 Home Medications Medication Instructions Recorded Confirmed Type No Known Home Medications 11/19/17 11/19/17 History Results - Labs CBC & Chem 7: 11/23/17 16:47 11/24/17 06:28 Laboratory Results - last 24 hr 11/23/17 11/23/17 11/23/17 16:47 17:16 21:40 WBC 11.2 H RBC 3.78 L Hgb 11.1 L Hct 33.1 L MCV 87.5 MCH 29.3 MCHC 33.5 RDW 13.2 Plt Count 237 MPV 8.7 Neut % (Auto) 68.3 Lymph % (Auto) 22.9 [place] % (Auto) 6.0 Eos % (Auto) 2.1 Baso % (Auto) 0.7 Neut # (Auto) 7.6 Lymph # (Auto) 2.6 [place] # (Auto) 0.7 Eos # (Auto) 0.2 Baso # (Auto) 0.1 WBC Differential . Differential Comment Auto diff final Creatinine Estimated GFR POC Glucose 218 H 238 H 11/24/17 11/24/17 11/24/17 06:28 07:39 11:41 WBC RBC Hgb Hct MCV MCH MCHC RDW Plt Count MPV Neut % (Auto) Lymph % (Auto) [place] % (Auto) Eos % (Auto) Baso % (Auto) Neut # (Auto) Lymph # (Auto) [place] # (Auto) Eos # (Auto) Baso # (Auto) WBC Differential Differential Comment Creatinine 0.75 Estimated GFR 81 L POC Glucose 137 H 203 H Microbiology 11/19/17 10:55 Blood - Peripheral Aerobic Blood Culture - Final No growth in 5 days 11/19/17 10:55 Blood - Peripheral Anaerobic Blood Culture - Final No growth in 5 days 11/19/17 11:05 Blood - Peripheral Aerobic Blood Culture - Final No growth in 5 days 11/19/17 11:05 Blood - Peripheral Anaerobic Blood Culture - Final No growth in 5 days 11/22/17 18:02 Tissue - Foot Gram Stain - Final 11/22/17 18:02 Tissue - Foot Wound Culture - Preliminary No growth in 48 hours 11/19/17 11:05 Wound - Foot Gram Stain - Final 11/19/17 11:05 Wound - Foot Wound Culture - Final Proteus mirabilis Alcaligenes faecalis Staphylococcus aureus Group B beta Strep - Procedures 11/22 Right second digit amputation at metatarsal phalangeal joint Assessment and Plan - Plan 52 year old female with osteomyelitis noted to second digit as well as multiple metatarsal heads on MRI, Right foot infection, Right second digit ischemia Heel weightbearing in surgical shoe to right lower extremity We will await the OR cultures and pathology Incision at appropriate healing interval, dressing change to right lower extremity Dressing to stay clean dry and intact Patient 2 OR with vascular surgery tomorrow Discussed follow-up with patient, she will need to follow-up within 1 week of discharge in my office ID recommendations on outpatient antibiotics
[2017-11-24] MEDS: Vancomycin Inj 1,250 MG in Sodium Chlor 0.9% Inj 250 ML IV.SIG SCH ×2 (12:19→23:55)
[2017-11-25] MEDS: Piperacil/Tazo 4.5 GM Premix 4.5 GM/100 ML BAG IV.SIG SCH ×4 (06:15→22:00)
[2017-11-25] MEDS: Acetaminophen 325 MG Tablet PO PRN (06:20)
[2017-11-25] MEDS: Insulin NovoLOG Aspart Correctional Sugar Inj SQ SCH ×4 (08:46→20:35)
[2017-11-25] MEDS: Insulin Detemir Inj 1,000 UNIT/10 ML Vial SQ SCH ×2 (08:46→20:32)
[2017-11-25] MEDS: Sodium Chloride 0.9% 2 ML Flush BID IV.FLUSH SCH ×2 (09:26→20:36)
[2017-11-25] MEDS: Lisinopril 10 MG Tablet PO SCH (09:26)
[2017-11-25 09:44] LABS: INR 1.1 Ratio; Prothrombin Time 10.9 sec (9.8-11.6)
--- NOTE | 2017-11-25 10:10 | MR ---
cc: Marly Caban DPM DATE: 11/25/2017 SURGEON: Marly Caban DPM [employer] OPERATOR: None. PREOPERATIVE DIAGNOSIS: Right second digit osteomyelitis. POSTOPERATIVE DIAGNOSIS: Right second digit osteomyelitis. PROCEDURE: Right second digit amputation at metatarsophalangeal joint. ANESTHESIA: General. HEMOSTASIS: None. ESTIMATED BLOOD LOSS: 10 mL. MATERIALS: 2-0 and 3-0 Prolene. INJECTABLES: 0.25% Marcaine plain, 10 mL total. COMPLICATIONS: None. INDICATIONS FOR PROCEDURE: The patient is a 52-year-old female who presented with gangrenous right second digit. MRI and bone scan are both positive for osteomyelitis to the distal, middle, and proximal phalanx. Decision was made to the patient for a right second digit amputation. The patient understands all risks, benefits, complications, and alternatives associated with the procedure. She would like to proceed. DESCRIPTION OF PROCEDURE: The patient was brought to the operating room, placed on the operating table in supine position. General anesthesia was induced. Right foot was prepped and draped in the usual sterile fashion. Attention was then directed to the right second digit where a racquet incision was made about the metatarsophalangeal joint. This incision was deepened through subcutaneous tissue with care to retract all vital neurovascular structures. Medial and lateral ligament of proximal phalanx metatarsophalangeal joint were identified and transected utilizing a #15 blade. The right second digit was disarticulated from the MPJ and passed off the field. Copious irrigation was performed. Vancomycin powder was applied to the site 2-0 and 3-0 Prolene was utilized to close skin. It was dressed with Xeroform, 4 x 4's, Rose, and Louie. The patient tolerated the procedure and anesthesia well. She was transferred from the OR to PACU with vital signs stable and vascular status intact. She is to remain heel weightbearing in a surgical shoe. We will await cultures and pathology to tailor antibiotics and patient is still undergoing vascular workup. LEOABRDO Schwarz/jennifer , 06:34 AM , 06:41 AM
--- NOTE | 2017-11-25 10:21 | P.PN ---
Subjective Interval history: no pain complains slept well looking forward to procedure - going this am Physical Exam Vital signs: Vital Signs 11/24/17 12:00 11/24/17 16:00 11/24/17 20:00 Temperature 98.1 F 98.3 F 99.4 F Pulse Rate 72 74 77 Respiratory Rate 16 16 18 Blood Pressure 168/75 H 151/62 H 161/74 H Pulse Oximetry 97 99 98 11/25/17 00:00 11/25/17 04:00 11/25/17 08:00 Temperature 98.8 F 98.4 F 97.8 F Pulse Rate 71 70 69 Respiratory Rate 17 16 16 Blood Pressure 126/59 L 133/60 131/64 Pulse Oximetry 96 97 98 Intake & Output 11/24/17 11/25/17 11/25/17 18:59 06:59 18:59 Intake Total 350 / 350 582.5 / 582.5 100 / 100 Balance 350 / 350 582.5 / 582.5 100 / 100 Weight 75.4 kg Intake: IV 350 / 350 462.5 / 462.5 100 / 100 Zosyn 4.5 GM Premix 4.5 gm In 100 / 100 200 / 200 100 / 100 100 ml @ 200 mls/hr IV.SIG Q6H [facility] Rx#:[id number] Vancomycin Inj 1,250 MG In NS 250 / 250 262.5 / 262.5 Inj 250 ML @ 250 mls/hr IV.SIG Q12H [facility] Rx#:[id number] Oral 120 / 120 Other: # Voids 4 Date of Last Bowel Movement 11/19/17 11/19/17 Narrative: awake and alert, no acute distress anicteric sclerae no nuchal rigidity lungs- no rales, no wheezes regular rhythm abdomen- soft, nontender rihgt foot- post op dressing intact, able to wiggle toes, no calf tenderness Results - Labs CBC & Chem 7: 11/23/17 16:47 11/24/17 06:28 Laboratory Results - last 24 hr 11/24/17 11/24/17 11/24/17 11:41 17:59 20:07 PT INR APTT POC Glucose 203 H 143 H 200 H 11/25/17 11/25/17 11/25/17 08:03 08:48 08:48 PT 10.9 INR 1.1 APTT 26.7 POC Glucose 182 H Microbiology 11/19/17 10:55 Blood - Peripheral Aerobic Blood Culture - Final No growth in 5 days 11/19/17 10:55 Blood - Peripheral Anaerobic Blood Culture - Final No growth in 5 days 11/19/17 11:05 Blood - Peripheral Aerobic Blood Culture - Final No growth in 5 days 11/19/17 11:05 Blood - Peripheral Anaerobic Blood Culture - Final No growth in 5 days 11/22/17 18:02 Tissue - Foot Gram Stain - Final 11/22/17 18:02 Tissue - Foot Wound Culture - Preliminary No growth in 48 hours - Procedures 11/22 Right second digit amputation at metatarsal phalangeal joint Assessment and Plan - Assessment (1) Osteomyelitis Code(s): M86.9 - Osteomyelitis, unspecified Status: Acute (2) Diabetes mellitus Code(s): E11.9 - Type 2 diabetes mellitus without complications Status: Acute - Plan 52 years old female with Acute Osteomyelitis of right second toe/Surrounding cellulitis- S/P right toe digit amputation 11/22-Cultures- Proteus/S. aureus -Currently on vancomycin and Zosyn culture - ID ff -Acetaminophen and [place] for pain. PAD-right Popliteal artery stenosis Vascular surgery ff - - amenable endovascular intervention-this am Diabetes mellitus, insulin requiring - HbA1c 13, BS overall better, elevated this am -Levemir to 10 units twice daily, continue with insulin sliding scale- gadually increase to 15 units bid - Diabetic education -Started on CEZAR inhibitor for renal protection Hyperlipidemia Lipitor 10 mg at bedtime Hypertension lisinopril 10 mg daily Full code. SCDs for now. 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
[2017-11-25] MEDS ORDERED: fentaNYL Citrate Inj 250 MCG/5 ML Ampul ONE (10:41)
[2017-11-25] MEDS ORDERED: Pharmacy Ordered Lab Info OTHER ONE (10:45)
[2017-11-25] MEDS ORDERED: Heparin Drip 25,000 UNIT/250 ML BAG IV.CONT ONE (11:49)
[2017-11-25] MEDS ORDERED: Sodium Chlor 0.9% Inj 10 ML ONE (11:58)
[2017-11-25] MEDS ORDERED: Cathflo Activase Inj 2 MG Vial IV.PUSH ONE (12:00)
[2017-11-25] MEDS: Heparin/NS PF Inj 500 ML I-CATHETER SCH (12:00)
[2017-11-25] MEDS: Heparin Drip 25,000 UNIT/250 ML BAG IV.CONT SCH (12:00)
[2017-11-25] MEDS: Cathflo Activase Inj 10 MG in Sodium Chlor 0.9% Inj 500 ML I-CATHETER PRN ×2 (12:00→22:03)
--- NOTE | 2017-11-25 13:32 | P.RAD ---
Post Procedure Progress Note - Pre Procedure Diagnosis (1) Wet gangrene (2) Osteomyelitis - Post Procedure Diagnosis (1) Wet gangrene (2) Osteomyelitis - Procedure Information Procedure Date: 11/25/17 Supervising Radiologist: Lj Blake MD Estimated blood loss (mL): 0 Anesthesia: Local, Analgesia, Conscious Sedation - Plan of Activity Patient to Unit: Critical Care Patient Condition: Good See PACS Report for procedural detail/treatment. Vascular - Arterial Procedure right Leg Procedure: Angiogram, Thrombolysis (5cm infusion) - Additional Information Findings: Focal irregularity with possible thrombus. Will start TPA for overnight infusion.
[2017-11-25] MEDS ORDERED: Heparin/NS PF Inj 500 ML I-CATHETER PRN (14:21)
[2017-11-25] MEDS ORDERED: Morphine Inj 4 MG/ML Vial IV.PUSH PRN ×2 (14:21)
--- NOTE | 2017-11-25 14:23 | P.CONCC ---
History of Present Illness Service: Critical care Consult date: 11/25/17 Requesting Physician: Lj Blake Reason for Consult: Thrombolysis Primary Care Provider: No Primary Care Physician Chief Complaint: Right foot pain, tenderness, redness History of Present Illness: 52yF who presented to the ED on 11/19/17 with gangrenous necrotic right 2nd toe, found to have evidence of osteomyelitis. She was initially admitted to the medicine service with podiatry, infectious disease, and vascular surgery consults. She was started on vancomycin and piperacillin-tazobactam and had a CTA aorta with runoff performed, which showed right proximal popliteal artery stenosis and 3 vessel run-off to the foot. She went to the OR with podiatry this morning for right 2nd digit amputation and subsequently went to interventional radiology for thrombolysis. She arrived to the ICU in stable condition, with sheath in place and tPA infusing. She currently offers no complaints. Review of Systems All other systems reviewed negative except as stated in HPI PMFSH - History History Provided By: Patient - Medical History Medical History: Medical History (Last Reviewed 11/25/17 @ 14:13 by Stacy Rueda DO) delivery delivered Neuropathy - Surgical History Surgical History: Surgical History (Last Reviewed 11/25/17 @ 14:13 by Stacy Rueda DO) Hx of breast surgery Hx of cholecystectomy - Social History I have reviewed the patient's Social History: Yes - Tobacco History Second Hand Smoke Exposure: Yes Tobacco Use In Past 30 Days: No Smoking Status: Former smoker Tobacco Type: Cigarettes - Alcohol History How Often Do You Have a Drink Containing Alcohol: Never - Substance Use History Substance History: No History of Abuse - Travel History Recent Travel in the [place] Within the Last 8 Weeks: No Recent Travel Out of the Country Within the Last 8 Weeks: No - Immunization History Tetanus Immunization: Unsure Hx Influenza Vaccine This Season: No Pediatric Immunizations Up to Date: Yes Medications and Allergies Active Medications: Active Medications Acetaminophen (Tylenol) 650 mg PO Q4H PRN PRN Reason: Headache, fever, pain 1-4 Last Admin: 11/25/17 06:20 Dose: 650 mg Hydrocodone Bitart/Acetaminophen ([place] 5/325) 1 tab PO Q6H PRN PRN Reason: Pain 5-10 Last Admin: 11/23/17 10:40 Dose: 1 tab Al Hydroxide/Mg Hydroxide (Milk Of Magnesia Liq) 30 ml PO Q12H PRN PRN Reason: Mild Constipation Last Admin: 11/23/17 18:16 Dose: 30 ml Atorvastatin Calcium (Lipitor) 10 mg PO HS [facility] Last Admin: 11/24/17 20:16 Dose: 10 mg Bisacodyl (Dulcolax Supp) 10 mg RECTAL DAILY PRN PRN Reason: SEVERE CONSITIPATION Dextrose (D50w Vial) 50 ml IV.PUSH UNSCH PRN PRN Reason: PER HYPOGLYCEMIA PROTOCOL Glucagon (Glucagon Inj) 1 mg OTHER PRN PRN PRN Reason: for Hypoglycemia Protocol Piperacillin/Tazobactam/Dextrose (Zosyn 4.5 Gm Premix) 4.5 gm in 100 mls @ 200 mls/hr IV.SIG Q6H [facility] Last Infusion: 11/25/17 07:55 Dose: Infused Vancomycin HCl 1,250 mg/ (Sodium Chloride) 262.5 mls @ 250 mls/hr IV.SIG Q12H [facility] Last Infusion: 11/25/17 01:29 Dose: Infused Insulin Aspart (Novolog Insulin Correctional Sugar Inj) 0 unit SQ ACHS [facility]; Protocol Last Admin: 11/25/17 13:56 Dose: Not Given Insulin Detemir (Levemir Inj) 15 unit SQ BID [facility] Last Admin: 11/25/17 08:46 Dose: Not Given Lactulose (Lactulose Liq) 30 ml PO DAILY PRN PRN Reason: SEVERE CONSITIPATION Last Admin: 11/24/17 16:07 Dose: 30 ml Lisinopril (Prinivil) 10 mg PO DAILY [facility] Last Admin: 11/25/17 09:26 Dose: 10 mg Ondansetron HCl (Zofran Inj) 4 mg IV.PUSH Q6H PRN PRN Reason: NAUSEA OR VOMITING Pharmacy Profile Note (Vancomycin Consult Pharmacy) 1 each OTHER UNSCH PRN PRN Reason: Pharmacy to dose Sennosides (Senokot) 17.2 mg PO Q12H PRN PRN Reason: Moderate Constipation Sodium Chloride (Ns Flush) 2 ml IV.FLUSH BID [facility] Last Admin: 11/25/17 09:26 Dose: 2 ml Sodium Chloride (Ns Flush) 2 ml IV.FLUSH PRN PRN PRN Reason: FLUSH AFTER USING IV ACCESS Allergies Allergy/AdvReac Type Severity Reaction Status Date / Time No Known Allergies Allergy Verified 11/19/17 11:44 Home Medications Medication Instructions Recorded Confirmed Type No Known Home Medications 11/19/17 11/19/17 History Physical Exam Vital signs: Vital Signs 11/24/17 16:00 11/24/17 20:00 11/25/17 00:00 Temperature 98.3 F 99.4 F 98.8 F Pulse Rate 74 77 71 Respiratory Rate 16 18 17 Blood Pressure 151/62 H 161/74 H 126/59 L Pulse Oximetry 99 98 96 11/25/17 04:00 11/25/17 08:00 11/25/17 12:53 Temperature 98.4 F 97.8 F 98.0 F Pulse Rate 70 69 72 Respiratory Rate 16 16 14 Blood Pressure 133/60 131/64 168/69 H Pulse Oximetry 97 98 Intake & Output 11/24/17 11/25/17 11/25/17 18:59 06:59 18:59 Intake Total 350 / 350 582.5 / 582.5 100 / 100 Balance 350 / 350 582.5 / 582.5 100 / 100 Weight 75.4 kg Intake: IV 350 / 350 462.5 / 462.5 100 / 100 Zosyn 4.5 GM Premix 4.5 gm In 100 / 100 200 / 200 100 / 100 100 ml @ 200 mls/hr IV.SIG Q6H [facility] Rx#:[id number] Vancomycin Inj 1,250 MG In NS 250 / 250 262.5 / 262.5 Inj 250 ML @ 250 mls/hr IV.SIG Q12H [facility] Rx#:[id number] Oral 120 / 120 Other: # Voids 4 Date of Last Bowel Movement 11/19/17 11/19/17 Narrative: GEN: Well-appearing, no acute distress HEENT: NCAT, PERRL NECK: Trachea midline CARDIO: Regular rate and rhythm PULM: Clear to auscultation bilaterally ABD/ GI: Soft and non-tender in all quadrants SKIN: Warm and well-perfused, bandage to right foot is clean/ dry/ intact EXT/MS: Left femoral sheath in place with clean/ dry/ intact bandages; right lower extremity is warm, no peripheral edema, monophasic PT/ biphasic DP Doppler signals NEURO: A&Ox3, conversational, no focal neuro deficits PSYCH: Appropriate affect Assessment and Plan - Assessment and Plan Plan: Assessment: 52yF with gangrenous osteomyelitis of right 2nd digit s/p amputation and thrombolysis NEURO: * Pain control with Tylenol, hydrocodone CARDIO: * Continue statin and lisinopril * PRN labetalol for SBP >180 RESP: * Incentive spirometer F/E/N: * Clears for now, NPO after midnight for lysis check tomorrow * Sliding scale insulin ID: * Continue vanc/ zosyn * Vanc trough pending, pharmacy consulted for dosing HEME: * Alteplase currently running through left femoral sheath into RLE, check serial labs, monitor for bleeding or DIC PROPHY: * No indication for SQH while patient is on tPA * SCDs * No indication for GI prophylaxis OVERALL: This patient needs to stay in the intensive care unit overnight for frequent neurovascular checks, frequent lab draws, and to monitor while on thrombolytics. If her lysis check tomorrow shows patent vessel, can be transitioned back to [facility] service. Counseling/ Coordination of Care: Total critical care time spent is 32 minutes. This includes examining the patient, gathering history from someone other than the patient (i.e. chart review), discussing the patient's care with other providers, ordering and interpreting laboratory values, re-evaluation at frequent intervals, and documentation. Amount of time is separate from teaching, counseling the patient and/or family, and exclusive of procedures. Code Status: Full
[2017-11-25] MEDS: Vancomycin Inj 1,250 MG in Sodium Chlor 0.9% Inj 250 ML IV.SIG SCH ×2 (14:39→22:31)
[2017-11-25 15:22] LABS: Baso # (Auto) 0.1 th/mm3 (0.0-0.2); Baso % (Auto) 0.6 % (0.0-2.0); Eos # (Auto) 0.2 th/mm3 (0.0-0.4); Eos % (Auto) 1.6 % (0.0-4.0); Hematocrit 34.6 % (35.0-46.0); Hemoglobin 11.7 gm/dL (11.6-15.3); Lymph # (Auto) 2.7 th/mm3 (1.0-4.8); Lymph % (Auto) 29.8 % (9.0-44.0); Mean Corpuscular HGB Conc 33.9 % (32.0-36.0); Mean Corpuscular Hemoglobin 29.5 pg (27.0-34.0); Mean Corpuscular Volume 86.9 fL (80.0-100.0); Mean Platelet Volume 8.8 fL (7.0-11.0); Mono # (Auto) 0.5 th/mm3 (0.0-0.9); Mono % (Auto) 5.3 % (0.0-8.0); Neut # (Auto) 5.7 th/mm3 (1.8-7.7); Neut % (Auto) 62.7 % (16.0-70.0); Platelet Count 259 th/mm3 (150-450); Red Blood Count 3.98 mil/mm3 (4.00-5.30); Red Cell Distribution Width 13.1 % (11.6-17.2); White Blood Count 9.2 th/mm3 (4.0-11.0)
[2017-11-25] MEDS: Sod Chloride 0.9% Inj 1,000 ML IV.SIG SCH (16:35)
[2017-11-25] MEDS: Labetalol HCl Inj 100 MG/20 ML Vial IV.PUSH PRN ×2 (16:35→20:09)
[2017-11-25 20:56] LABS: Activated Partial Thrombo Time 26.5 sec (24.3-30.1)
[2017-11-26 02:06] LABS: Baso # (Auto) 0.1 th/mm3 (0.0-0.2); Baso % (Auto) 0.4 % (0.0-2.0); Eos # (Auto) 0.1 th/mm3 (0.0-0.4); Eos % (Auto) 0.9 % (0.0-4.0); Hematocrit 32.5 % (35.0-46.0); Hemoglobin 10.6 gm/dL (11.6-15.3); Lymph # (Auto) 1.9 th/mm3 (1.0-4.8); Mean Corpuscular HGB Conc 32.7 % (32.0-36.0); Mean Corpuscular Hemoglobin 28.7 pg (27.0-34.0); Mean Corpuscular Volume 87.6 fL (80.0-100.0); Mean Platelet Volume 8.2 fL (7.0-11.0); Mono # (Auto) 0.5 th/mm3 (0.0-0.9); Mono % (Auto) 4.1 % (0.0-8.0); Neut # (Auto) 9.4 th/mm3 (1.8-7.7); Neut % (Auto) 78.6 % (16.0-70.0); Platelet Count 232 th/mm3 (150-450); Red Blood Count 3.71 mil/mm3 (4.00-5.30); Red Cell Distribution Width 13.1 % (11.6-17.2)
[2017-11-26 02:32] LABS: Activated Partial Thrombo Time 26.4 sec (24.3-30.1)
[2017-11-26 02:35] LABS: Anion Gap 8 meq/L (5-15); Blood Urea Nitrogen 7 mg/dL (7-18); Carbon Dioxide 28.1 meq/L (21.0-32.0); Chloride 105 meq/L (98-107); Glomerular Filtration Rate Greater Than 89 mL/min (>89); Glucose,Random 251 mg/dL (74-106); Potassium 3.6 meq/L (3.5-5.1); Sodium 141 meq/L (136-145)
[2017-11-26 05:05] LABS: Baso # (Auto) 0.1 th/mm3 (0.0-0.2); Baso % (Auto) 0.6 % (0.0-2.0); Eos # (Auto) 0.1 th/mm3 (0.0-0.4); Eos % (Auto) 0.9 % (0.0-4.0); Hematocrit 32.1 % (35.0-46.0); Hemoglobin 10.7 gm/dL (11.6-15.3); Lymph # (Auto) 2.3 th/mm3 (1.0-4.8); Lymph % (Auto) 19.4 % (9.0-44.0); Mean Corpuscular HGB Conc 33.3 % (32.0-36.0); Mean Corpuscular Hemoglobin 29.1 pg (27.0-34.0); Mean Corpuscular Volume 87.4 fL (80.0-100.0); Mean Platelet Volume 8.9 fL (7.0-11.0); Mono # (Auto) 0.4 th/mm3 (0.0-0.9); Mono % (Auto) 3.7 % (0.0-8.0); Neut # (Auto) 8.8 th/mm3 (1.8-7.7); Neut % (Auto) 75.4 % (16.0-70.0); Platelet Count 235 th/mm3 (150-450); Red Blood Count 3.67 mil/mm3 (4.00-5.30); Red Cell Distribution Width 12.9 % (11.6-17.2); White Blood Count 11.7 th/mm3 (4.0-11.0)
[2017-11-26] MEDS: Piperacil/Tazo 4.5 GM Premix 4.5 GM/100 ML BAG IV.SIG SCH ×4 (05:14→21:53)
[2017-11-26 05:23] LABS: Glomerular Filtration Rate Greater Than 89 mL/min (>89)
[2017-11-26] MEDS: Heparin/NS PF Inj 500 ML I-CATHETER SCH (06:34)
[2017-11-26] MEDS: Insulin NovoLOG Aspart Correctional Sugar Inj SQ SCH ×4 (07:55→22:11)
[2017-11-26] MEDS: Lisinopril 10 MG Tablet PO SCH (08:01)
[2017-11-26] MEDS: Sodium Chloride 0.9% 2 ML Flush BID IV.FLUSH SCH ×2 (08:01→21:54)
[2017-11-26] MEDS: Cathflo Activase Inj 10 MG in Sodium Chlor 0.9% Inj 500 ML I-CATHETER PRN (08:53)
[2017-11-26 09:42] LABS: Baso % (Auto) 0.4 % (0.0-2.0); Eos # (Auto) 0.1 th/mm3 (0.0-0.4); Eos % (Auto) 1.2 % (0.0-4.0); Hematocrit 31.8 % (35.0-46.0); Hemoglobin 10.5 gm/dL (11.6-15.3); Lymph # (Auto) 1.8 th/mm3 (1.0-4.8); Lymph % (Auto) 17.8 % (9.0-44.0); Mean Corpuscular HGB Conc 32.9 % (32.0-36.0); Mean Corpuscular Hemoglobin 28.9 pg (27.0-34.0); Mean Corpuscular Volume 87.8 fL (80.0-100.0); Mean Platelet Volume 8.5 fL (7.0-11.0); Mono # (Auto) 0.4 th/mm3 (0.0-0.9); Mono % (Auto) 4.3 % (0.0-8.0); Neut # (Auto) 7.7 th/mm3 (1.8-7.7); Neut % (Auto) 76.3 % (16.0-70.0); Platelet Count 235 th/mm3 (150-450); Red Blood Count 3.62 mil/mm3 (4.00-5.30); Red Cell Distribution Width 12.8 % (11.6-17.2); White Blood Count 10.1 th/mm3 (4.0-11.0)
[2017-11-26] MEDS ORDERED: fentaNYL Citrate Inj 100 MCG/2 ML Ampul ONE (10:46)
[2017-11-26] MEDS ORDERED: Heparin 10,000 UNITS/10 ML Vial (for IV use) ONE (11:38)
--- NOTE | 2017-11-26 11:45 | P.RAD ---
Post Procedure Progress Note - Procedure Information Procedure Date: 11/26/17 Supervising Radiologist: Ignacio Linton MD Anesthesia: Conscious Sedation - Plan of Activity Patient to Unit: Nursing Unit Patient Condition: Good See PACS Report for procedural detail/treatment. Vascular - Arterial Procedure right Leg Procedure: Angioplasty (popliteal xplasty procedure terminated tpa and heparin off)
[2017-11-26] MEDS: Insulin Detemir Inj 1,000 UNIT/10 ML Vial SQ SCH ×2 (13:04→22:11)
--- NOTE | 2017-11-26 14:28 | P.PNCC ---
Subjective Subjective Remarks/Hospital Course: 52yF who presented to the ED on 11/19/17 with gangrenous necrotic right 2nd toe, found to have evidence of osteomyelitis. She was initially admitted to the medicine service with podiatry, infectious disease, and vascular surgery consults. She was started on vancomycin and piperacillin-tazobactam and had a CTA aorta with runoff performed, which showed right proximal popliteal artery stenosis and 3 vessel run-off to the foot. She went to the OR with podiatry this morning for right 2nd digit amputation and subsequently went to interventional radiology for thrombolysis. She arrived to the ICU in stable condition, with sheath in place and tPA infusing. 11/26- Patient went to IR this morning for lysis check, angioplasty, and sheath removal. She returned to the [facility] off tPA and heparin, only complaint is that she is hungry. Objective Vital Signs / I&O: Vital Signs 11/25/17 15:00 11/25/17 15:14 11/25/17 15:39 Temperature Pulse Rate 69 74 Respiratory Rate 19 23 Blood Pressure 175/77 H 175/77 H Pulse Oximetry 99 99 11/25/17 16:00 11/25/17 16:30 11/25/17 17:00 Temperature Pulse Rate 72 71 79 Respiratory Rate 13 17 15 Blood Pressure 198/86 H 178/79 H Pulse Oximetry 98 98 97 11/25/17 17:30 11/25/17 18:00 11/25/17 18:30 Temperature Pulse Rate 80 79 79 Respiratory Rate 14 24 13 Blood Pressure 187/82 H 174/78 H 195/81 H Pulse Oximetry 98 98 98 11/25/17 19:00 11/25/17 19:02 11/25/17 19:30 Temperature Pulse Rate 82 83 83 Respiratory Rate 15 14 19 Blood Pressure 182/76 H 176/81 H 186/83 H Pulse Oximetry 97 96 96 11/25/17 20:00 11/25/17 20:30 11/25/17 21:00 Temperature Pulse Rate 87 84 80 Respiratory Rate 21 27 H 18 Blood Pressure 180/79 H 179/79 H 165/76 H Pulse Oximetry 97 96 96 11/25/17 21:30 11/25/17 22:00 11/25/17 22:30 Temperature Pulse Rate 85 82 81 Respiratory Rate 23 11 L 18 Blood Pressure 172/77 H 170/79 H 151/69 H Pulse Oximetry 98 98 95 11/25/17 22:32 11/25/17 23:00 11/25/17 23:30 Temperature Pulse Rate 80 79 Respiratory Rate 16 23 16 Blood Pressure 172/77 H 154/68 H Pulse Oximetry 96 95 11/26/17 00:00 11/26/17 00:30 11/26/17 01:00 Temperature 98.2 F Pulse Rate 79 79 80 Respiratory Rate 16 16 15 Blood Pressure 147/65 H 143/65 H 139/65 Pulse Oximetry 94 L 95 94 L 11/26/17 01:30 11/26/17 02:00 11/26/17 02:30 Temperature Pulse Rate 80 78 77 Respiratory Rate 17 15 14 Blood Pressure 136/64 141/63 H 146/65 H Pulse Oximetry 96 96 96 11/26/17 03:00 11/26/17 03:30 11/26/17 04:00 Temperature 98.4 F Pulse Rate 75 74 71 Respiratory Rate 15 0 L 16 Blood Pressure 137/63 158/72 H 141/67 H Pulse Oximetry 95 97 97 11/26/17 04:30 11/26/17 05:00 11/26/17 05:30 Temperature Pulse Rate 74 73 73 Respiratory Rate 13 23 9 L Blood Pressure 142/68 H 146/76 H 154/73 H Pulse Oximetry 96 98 96 11/26/17 05:59 11/26/17 06:00 11/26/17 06:30 Temperature Pulse Rate 74 72 73 Respiratory Rate 18 13 15 Blood Pressure 165/75 H 157/70 H Pulse Oximetry 97 97 95 11/26/17 07:00 11/26/17 07:30 11/26/17 08:00 Temperature 98.3 F Pulse Rate 73 73 74 Respiratory Rate 10 L 13 16 Blood Pressure 166/77 H 163/74 H 160/74 H Pulse Oximetry 96 96 97 11/26/17 08:30 11/26/17 09:00 11/26/17 09:30 Temperature Pulse Rate 74 73 72 Respiratory Rate 16 12 16 Blood Pressure 164/72 H 136/64 145/66 H Pulse Oximetry 96 96 97 11/26/17 10:00 11/26/17 12:09 11/26/17 12:35 Temperature Pulse Rate 72 73 75 Respiratory Rate 16 12 16 Blood Pressure 149/69 H 159/71 H 164/79 H Pulse Oximetry 97 98 11/26/17 12:45 11/26/17 12:49 11/26/17 12:55 Temperature Pulse Rate 77 77 79 Respiratory Rate 10 L 4 L 23 Blood Pressure 175/108 H 173/79 H 172/78 H Pulse Oximetry 98 97 98 11/26/17 13:00 11/26/17 13:10 11/26/17 13:15 Temperature Pulse Rate 78 76 78 Respiratory Rate 34 H 16 17 Blood Pressure 181/82 H 175/81 H Pulse Oximetry 98 98 98 11/26/17 13:29 11/26/17 13:30 Temperature Pulse Rate 77 Respiratory Rate 10 L Blood Pressure 171/81 H Pulse Oximetry 95 Intake & Output 11/25/17 11/26/17 11/26/17 18:59 06:59 18:59 Intake Total 822.5 / 822.5 1802.5 / 1802.5 750 / 750 Output Total 1300 / 1300 1300 / 1300 Balance -477.5 / -477.5 502.5 / 502.5 750 / 750 Weight 75.6 kg Intake: IV 462.5 / 462.5 1562.5 / 1562.5 750 / 750 Cathflo Activase Inj 10 MG In 500 / 500 500 / 500 NS Inj 500 ML @ 1 MG/HR 50 mls/ hr I-CATHETER TITRATE PRN Rx#: [id number] Heparin/NS PF Inj 500 ML @ 30 500 / 500 mls/hr I-CATHETER .[id number] [facility] Rx#:[id number] Heparin/D5W 25,000 U/250 mL 25, 250 / 250 000 unit In 250 ml @ 5 mls/hr IV.CONT .Q24H [facility] Rx#:[id number] Zosyn 4.5 GM Premix 4.5 gm In 200 / 200 300 / 300 100 ml @ 200 mls/hr IV.SIG Q6H [facility] Rx#:[id number] Vancomycin Inj 1,250 MG In NS 262.5 / 262.5 262.5 / 262.5 Inj 250 ML @ 250 mls/hr IV.SIG Q12H [facility] Rx#:[id number] Oral 360 / 360 240 / 240 Output: Urine 1300 / 1300 Urine Amount (Catheter) 1300 / 1300 Indwelling Urethral Catheter 1300 / 1300 Other: Date of Last Bowel Movement 10/04/0711/19/17 11/19/17 Result Diagrams: 11/26/17 09:09 11/26/17 03:14 Objective Remarks: GEN: Well-appearing, lying flat in bed s/p left femoral sheath removal HEENT: NCAT NECK: Trachea midline CARDIO: Regular rate and rhythm PULM: Clear to auscultation bilaterally ABD/ GI: Soft and non-tender in all quadrants SKIN: Warm and well-perfused, bandage to right foot has dried blood present, left femoral dressing is clean/ dry/ intact EXT/MS: No peripheral edema NEURO: A&Ox3, conversational, no focal neuro deficits PSYCH: Appropriate affect Assessment and Plan - Assessment and Plan Plan: Assessment: 52yF with gangrenous osteomyelitis of right 2nd digit s/p amputation and thrombolysis NEURO: * Pain control with Tylenol, hydrocodone CARDIO: * Continue statin and lisinopril * PRN labetalol for SBP >180 RESP: * Incentive spirometer F/E/N: * Diabetic diet * Sliding scale insulin ID: * Continue vanc/ zosyn * Vanc trough yesterday 12.5, pharmacy consulted for dosing HEME: * tPA and heparin now off, no signs of active bleeding PROPHY: * No indication for SQH as patient just came off heparin gtt/ tPA, may restart tomorrow * SCDs * No indication for GI prophylaxis OVERALL: Patient is stable s/p angioplasty/ sheath removal in IR, has no critical care needs at this point, and can be transitioned to med-surg bed. [facility] consulted to resume care tomorrow AM. Level 2 follow-up visit Code Status: Full
[2017-11-26] MEDS: Labetalol HCl Inj 100 MG/20 ML Vial IV.PUSH PRN (14:52)
--- NOTE | 2017-11-26 14:52 | P.PNVS ---
Subjective Subjective/Hospital Course: Patient with gangrene of the toe and stigmata of peripheral vascular disease Full consult dictated CTA with runoff pending Thanks Cheryl 11/23/2017 I have reviewed the CTA with a runoff. As suspected from the clinical exam patient has good inflow and then the problems start and the distal SFA where patient has a tight narrowing on the right side. In addition patient has small vessel disease in both feet Will go ahead with endovascular balloon dilatation of the right distal SFA/ popliteal artery on Saturday11/26/2017 Patient underwent under interventional radiology guidance successful TPA lysis overnight and the right SFA/popliteal artery balloon angioplasty with excellent results. Grateful for superb results and expertise by our interventional radiology team Both feet are warm and this point patient has good inflow and outflow and only limiting factor is small vessel disease in the feet Patient should heal her amputation site adequately Objective Vital Signs / I&O: Vital Signs 11/25/17 15:00 11/25/17 15:14 11/25/17 15:39 Temperature Pulse Rate 69 74 Respiratory Rate 19 23 Blood Pressure 175/77 H 175/77 H Pulse Oximetry 99 99 11/25/17 16:00 11/25/17 16:30 11/25/17 17:00 Temperature Pulse Rate 72 71 79 Respiratory Rate 13 17 15 Blood Pressure 198/86 H 178/79 H Pulse Oximetry 98 98 97 11/25/17 17:30 11/25/17 18:00 11/25/17 18:30 Temperature Pulse Rate 80 79 79 Respiratory Rate 14 24 13 Blood Pressure 187/82 H 174/78 H 195/81 H Pulse Oximetry 98 98 98 11/25/17 19:00 11/25/17 19:02 11/25/17 19:30 Temperature Pulse Rate 82 83 83 Respiratory Rate 15 14 19 Blood Pressure 182/76 H 176/81 H 186/83 H Pulse Oximetry 97 96 96 11/25/17 20:00 11/25/17 20:30 11/25/17 21:00 Temperature Pulse Rate 87 84 80 Respiratory Rate 21 27 H 18 Blood Pressure 180/79 H 179/79 H 165/76 H Pulse Oximetry 97 96 96 11/25/17 21:30 11/25/17 22:00 11/25/17 22:30 Temperature Pulse Rate 85 82 81 Respiratory Rate 23 11 L 18 Blood Pressure 172/77 H 170/79 H 151/69 H Pulse Oximetry 98 98 95 11/25/17 22:32 11/25/17 23:00 11/25/17 23:30 Temperature Pulse Rate 80 79 Respiratory Rate 16 23 16 Blood Pressure 172/77 H 154/68 H Pulse Oximetry 96 95 11/26/17 00:00 11/26/17 00:30 11/26/17 01:00 Temperature 98.2 F Pulse Rate 79 79 80 Respiratory Rate 16 16 15 Blood Pressure 147/65 H 143/65 H 139/65 Pulse Oximetry 94 L 95 94 L 11/26/17 01:30 11/26/17 02:00 11/26/17 02:30 Temperature Pulse Rate 80 78 77 Respiratory Rate 17 15 14 Blood Pressure 136/64 141/63 H 146/65 H Pulse Oximetry 96 96 96 11/26/17 03:00 11/26/17 03:30 11/26/17 04:00 Temperature 98.4 F Pulse Rate 75 74 71 Respiratory Rate 15 0 L 16 Blood Pressure 137/63 158/72 H 141/67 H Pulse Oximetry 95 97 97 11/26/17 04:30 11/26/17 05:00 11/26/17 05:30 Temperature Pulse Rate 74 73 73 Respiratory Rate 13 23 9 L Blood Pressure 142/68 H 146/76 H 154/73 H Pulse Oximetry 96 98 96 11/26/17 05:59 11/26/17 06:00 11/26/17 06:30 Temperature Pulse Rate 74 72 73 Respiratory Rate 18 13 15 Blood Pressure 165/75 H 157/70 H Pulse Oximetry 97 97 95 11/26/17 07:00 11/26/17 07:30 11/26/17 08:00 Temperature 98.3 F Pulse Rate 73 73 74 Respiratory Rate 10 L 13 16 Blood Pressure 166/77 H 163/74 H 160/74 H Pulse Oximetry 96 96 97 11/26/17 08:30 11/26/17 09:00 11/26/17 09:30 Temperature Pulse Rate 74 73 72 Respiratory Rate 16 12 16 Blood Pressure 164/72 H 136/64 145/66 H Pulse Oximetry 96 96 97 11/26/17 10:00 11/26/17 12:09 11/26/17 12:35 Temperature Pulse Rate 72 73 75 Respiratory Rate 16 12 16 Blood Pressure 149/69 H 159/71 H 164/79 H Pulse Oximetry 97 98 11/26/17 12:45 11/26/17 12:49 11/26/17 12:55 Temperature Pulse Rate 77 77 79 Respiratory Rate 10 L 4 L 23 Blood Pressure 175/108 H 173/79 H 172/78 H Pulse Oximetry 98 97 98 11/26/17 13:00 11/26/17 13:10 11/26/17 13:15 Temperature Pulse Rate 78 76 78 Respiratory Rate 34 H 16 17 Blood Pressure 181/82 H 175/81 H Pulse Oximetry 98 98 98 11/26/17 13:29 11/26/17 13:30 Temperature Pulse Rate 77 Respiratory Rate 10 L Blood Pressure 171/81 H Pulse Oximetry 95 Intake & Output 11/25/17 11/26/17 11/26/17 18:59 06:59 18:59 Intake Total 822.5 / 822.5 1802.5 / 1802.5 750 / 750 Output Total 1300 / 1300 1300 / 1300 Balance -477.5 / -477.5 502.5 / 502.5 750 / 750 Weight 75.6 kg Intake: IV 462.5 / 462.5 1562.5 / 1562.5 750 / 750 Cathflo Activase Inj 10 MG In 500 / 500 500 / 500 NS Inj 500 ML @ 1 MG/HR 50 mls/ hr I-CATHETER TITRATE PRN Rx#: [id number] Heparin/NS PF Inj 500 ML @ 30 500 / 500 mls/hr I-CATHETER .[id number] [facility] Rx#:[id number] Heparin/D5W 25,000 U/250 mL 25, 250 / 250 000 unit In 250 ml @ 5 mls/hr IV.CONT .Q24H [facility] Rx#:[id number] Zosyn 4.5 GM Premix 4.5 gm In 200 / 200 300 / 300 100 ml @ 200 mls/hr IV.SIG Q6H [facility] Rx#:[id number] Vancomycin Inj 1,250 MG In NS 262.5 / 262.5 262.5 / 262.5 Inj 250 ML @ 250 mls/hr IV.SIG Q12H [facility] Rx#:[id number] Oral 360 / 360 240 / 240 Output: Urine 1300 / 1300 Urine Amount (Catheter) 1300 / 1300 Indwelling Urethral Catheter 1300 / 1300 Other: Date of Last Bowel Movement 11/19/17 11/19/17 11/19/17 Laboratory Results - last 24 hr 11/25/17 11/25/17 11/25/17 14:29 14:29 14:29 WBC 9.2 RBC 3.98 L Hgb 11.7 Hct 34.6 L MCV 86.9 MCH 29.5 MCHC 33.9 RDW 13.1 Plt Count 259 MPV 8.8 Neut % (Auto) 62.7 Lymph % (Auto) 29.8 [place] % (Auto) 5.3 Eos % (Auto) 1.6 Baso % (Auto) 0.6 Neut # (Auto) 5.7 Lymph # (Auto) 2.7 [place] # (Auto) 0.5 Eos # (Auto) 0.2 Baso # (Auto) 0.1 WBC Differential . Differential Comment Auto diff final APTT 27.3 Fibrinogen 720 H Sodium Potassium Chloride Carbon Dioxide Anion Gap BUN Creatinine Estimated GFR POC Glucose Random Glucose Calcium 11/25/17 11/25/17 11/26/17 19:53 20:24 01:48 WBC 12.0 H RBC 3.71 L Hgb 10.6 L Hct 32.5 L MCV 87.6 MCH 28.7 MCHC 32.7 RDW 13.1 Plt Count 232 MPV 8.2 Neut % (Auto) 78.6 H Lymph % (Auto) 16.0 [place] % (Auto) 4.1 Eos % (Auto) 0.9 Baso % (Auto) 0.4 Neut # (Auto) 9.4 H Lymph # (Auto) 1.9 [place] # (Auto) 0.5 Eos # (Auto) 0.1 Baso # (Auto) 0.1 WBC Differential . Differential Comment Auto diff final APTT 26.5 Fibrinogen 566 H Sodium Potassium Chloride Carbon Dioxide Anion Gap BUN Creatinine Estimated GFR POC Glucose 241 H Random Glucose Calcium 11/26/17 11/26/17 11/26/17 01:48 01:48 03:14 WBC RBC Hgb Hct MCV MCH MCHC RDW Plt Count MPV Neut % (Auto) Lymph % (Auto) [place] % (Auto) Eos % (Auto) Baso % (Auto) Neut # (Auto) Lymph # (Auto) [place] # (Auto) Eos # (Auto) Baso # (Auto) WBC Differential Differential Comment APTT 26.4 Fibrinogen 629 H Sodium 141 Potassium 3.6 Chloride 105 Carbon Dioxide 28.1 Anion Gap 8 BUN 7 Creatinine 0.67 0.66 Estimated GFR Greater than 89 Greater than 89 POC Glucose Random Glucose 251 H Calcium 8.0 L 11/26/17 11/26/17 11/26/17 03:14 07:47 09:09 WBC 11.7 H RBC 3.67 L Hgb 10.7 L Hct 32.1 L MCV 87.4 MCH 29.1 MCHC 33.3 RDW 12.9 Plt Count 235 MPV 8.9 Neut % (Auto) 75.4 H Lymph % (Auto) 19.4 [place] % (Auto) 3.7 Eos % (Auto) 0.9 Baso % (Auto) 0.6 Neut # (Auto) 8.8 H Lymph # (Auto) 2.3 [place] # (Auto) 0.4 Eos # (Auto) 0.1 Baso # (Auto) 0.1 WBC Differential . Differential Comment Auto diff final APTT 25.5 Fibrinogen Sodium Potassium Chloride Carbon Dioxide Anion Gap BUN Creatinine Estimated GFR POC Glucose 218 H Random Glucose Calcium 11/26/17 11/26/17 11/26/17 09:09 09:09 13:01 WBC 10.1 RBC 3.62 L Hgb 10.5 L Hct 31.8 L MCV 87.8 MCH 28.9 MCHC 32.9 RDW 12.8 Plt Count 235 MPV 8.5 Neut % (Auto) 76.3 H Lymph % (Auto) 17.8 [place] % (Auto) 4.3 Eos % (Auto) 1.2 Baso % (Auto) 0.4 Neut # (Auto) 7.7 Lymph # (Auto) 1.8 [place] # (Auto) 0.4 Eos # (Auto) 0.1 Baso # (Auto) 0.0 WBC Differential . Differential Comment Auto diff final APTT Fibrinogen 582 H Sodium Potassium Chloride Carbon Dioxide Anion Gap BUN Creatinine Estimated GFR POC Glucose 162 H Random Glucose Calcium Microbiology 11/22/17 18:02 Acid Fast Bacilli Smear - Final Tissue - Foot No acid fast bacilli seen 11/22/17 18:02 Fungal Smear - Final Tissue - Foot No fungal elements seen 11/22/17 18:02 Gram Stain - Final Tissue - Foot Wound Culture - Final No growth in 72 hours (aerobically and anaerobically)
[2017-11-26] MEDS: Vancomycin Inj 1,250 MG in Sodium Chlor 0.9% Inj 250 ML IV.SIG SCH ×2 (15:37→23:00)
[2017-11-26] MEDS: Sod Chloride 0.9% Inj 1,000 ML IV.SIG SCH (15:40)
--- NOTE | 2017-11-26 16:33 | IR ---
EXAM DATE: 11/26/2017 9:47 AM EDT AGE/SEX: 52 years / Female INDICATIONS: Patient presents with post Thrombolysis TPA infusing in need of a follow-up TPA through existing catheter. CLINICAL DATA: This is the patient's subsequent encounter. Patient reports that signs and symptoms h ave been present for 1 week and indicates a pain score of 0/10. MEDICAL/SURGICAL HISTORY: . Neuropathy. section. Cholecystectomy. Breast surgery. COMPARISON: No prior exams available for comparison. FLUORO TIME (min): 5.53 IMAGE SERIES: 7 ACCESS SITE: Left femoral artery SEDATION TIME (min): 30 CONTRAST (cc): 50 Visipaque (iodixanol) MEDICATION(S): 2mg midazolam (Versed) IV 100mcg fentanyl (Sublimaze) IV DEVICE(S): Right popliteal artery [employer] Balloon . . PROCEDURE: 1. Conscious sedation with continuous EKG and Oximetry monitoring. 2. Follow-up TPA infusion 3. Angiography of of the popliteal artery 4. The risks, benefits and alternatives to the procedure were explained and verbal and written consent w as obtained. The site was prepped in sterile fashion. Full sterile technique was used, including ca p, mask, sterile gloves and gown and a large sterile sheet. Hand hygiene and 2% chlorhexidine and/or betadine/alcohol prep was utilized per protocol for cutaneous antisepsis. The skin and subcutaneous tissues were infiltrated with local anesthetic solution. Following overnight infusion of TPA reevaluation of the popliteal stenosis demonstrates slight improv ement in the appearance of the vessel. High-grade stenosis remains greater than 70%. There is two-ves addi runoff to the ankle. The prescribed balloon was used for angioplasty with inflation time of 3 minutes. Follow-up angiograp hy demonstrates no residual stenosis and no flow limitation. The distal runoff was preserved. Conscious sedation was performed with the prescribed dosages and duration as above in the presence of an independent trained radiology nurse to assist in the monitoring of the patient. EKG and oximetry remained stable throughout the procedure. CONCLUSION: 1. Uncomplicated angioplasty of the right popliteal artery Electronically signed by: Ignacio Linton MD 11/26/2017 4:32 PM EDT
[2017-11-26] MEDS: Heparin Drip 25,000 UNIT/250 ML BAG IV.CONT SCH (17:58)
[2017-11-27] MEDS: Piperacil/Tazo 4.5 GM Premix 4.5 GM/100 ML BAG IV.SIG SCH ×2 (03:02→09:00)
[2017-11-27 06:52] LABS: Glomerular Filtration Rate Greater Than 89 mL/min (>89)
[2017-11-27] MEDS: Lisinopril 10 MG Tablet PO SCH (08:21)
[2017-11-27] MEDS: Insulin NovoLOG Aspart Correctional Sugar Inj SQ SCH ×4 (08:22→22:58)
--- NOTE | 2017-11-27 09:29 | P.PN ---
Subjective Interval history: Follow-up visit acute osteomyelitis of right second toe, surrounding cellulitis , PAD, PVD, DM 2. Patient seen and examined today. Reports she is doing okay. States any degree of Her right foot for her wound states she has been doing heel weightbearing on it but does not really know if she is supposed to be weightbearing on her heel on the right. Otherwise, denies pain and discomfort. Denies SOB/ dyspnea. Denies chest pain, palpitations, headaches, dizziness. Denies fevers, chills, n/v/d. Denies dysuria. Physical Exam Vital signs: Vital Signs 11/26/17 09:30 11/26/17 10:00 11/26/17 12:09 Temperature Pulse Rate 72 72 73 Respiratory Rate 16 16 12 Blood Pressure 145/66 H 149/69 H 159/71 H Pulse Oximetry 97 97 11/26/17 12:35 11/26/17 12:45 11/26/17 12:49 Temperature Pulse Rate 75 77 77 Respiratory Rate 16 10 L 4 L Blood Pressure 164/79 H 175/108 H 173/79 H Pulse Oximetry 98 98 97 11/26/17 12:55 11/26/17 13:00 11/26/17 13:10 Temperature Pulse Rate 79 78 76 Respiratory Rate 23 34 H 16 Blood Pressure 172/78 H 181/82 H Pulse Oximetry 98 98 98 11/26/17 13:15 11/26/17 13:29 11/26/17 13:30 Temperature Pulse Rate 78 77 77 Respiratory Rate 17 10 L 11 L Blood Pressure 175/81 H 171/81 H Pulse Oximetry 98 95 96 11/26/17 13:59 11/26/17 14:00 11/26/17 14:28 Temperature Pulse Rate 80 79 78 Respiratory Rate 18 20 15 Blood Pressure 173/79 H 187/86 H Pulse Oximetry 97 98 97 11/26/17 14:31 11/26/17 14:43 11/26/17 14:58 Temperature Pulse Rate 79 78 82 Respiratory Rate 27 H 9 L 13 Blood Pressure 177/82 H 182/83 H 168/79 H Pulse Oximetry 98 97 97 11/26/17 15:00 11/26/17 15:13 11/26/17 15:28 Temperature Pulse Rate 81 83 86 Respiratory Rate 13 14 19 Blood Pressure 168/78 H 176/82 H Pulse Oximetry 96 95 97 11/26/17 15:43 11/26/17 15:58 11/26/17 16:00 Temperature Pulse Rate 81 81 80 Respiratory Rate 21 16 17 Blood Pressure 157/74 H 160/75 H Pulse Oximetry 98 98 98 11/26/17 16:13 11/26/17 16:28 11/26/17 16:43 Temperature Pulse Rate 82 81 80 Respiratory Rate 18 17 16 Blood Pressure 176/81 H 145/67 H 142/65 H Pulse Oximetry 98 99 99 11/26/17 16:58 11/26/17 17:00 11/26/17 17:13 Temperature Pulse Rate 81 80 81 Respiratory Rate 22 10 L 25 H Blood Pressure 139/64 136/61 Pulse Oximetry 98 98 98 11/26/17 17:28 11/26/17 20:00 11/27/17 00:00 Temperature 98.7 F 98.6 F Pulse Rate 84 81 84 Respiratory Rate 19 18 18 Blood Pressure 138/65 152/67 H 137/61 Pulse Oximetry 98 99 96 11/27/17 04:00 Temperature 97.8 F Pulse Rate 74 Respiratory Rate 18 Blood Pressure 145/64 H Pulse Oximetry 98 Intake & Output 11/26/17 11/27/17 11/27/17 18:59 06:59 18:59 Intake Total 3602.5 / 3602.5 462.5 / 462.5 Output Total 3255 / 3255 Balance 347.5 / 347.5 462.5 / 462.5 Weight 77.3 kg Intake: IV 3162.5 / 3162.5 462.5 / 462.5 Cathflo Activase Inj 10 MG In 1000 / 1000 NS Inj 500 ML @ 1 MG/HR 50 mls/ hr I-CATHETER TITRATE PRN Rx#: [id number] Heparin/NS PF Inj 500 ML @ 30 500 / 500 mls/hr I-CATHETER .[id number] [facility]DR[facility] Rx#:[id number] Heparin/D5W 25,000 U/250 mL 25, 250 / 250 000 unit In 250 ml @ 5 mls/hr IV.CONT .Q24H [facility] Rx#:[id number] Zosyn 4.5 GM Premix 4.5 gm In 100 / 100 200 / 200 100 ml @ 200 mls/hr IV.SIG Q6H [facility] Rx#:[id number] NS Inj 1,000 ML @ 30 mls/hr IV. 800 / 800 SIG .Q24H [facility]DRA Rx#:[id number] Vancomycin Inj 1,250 MG In NS 262.5 / 262.5 262.5 / 262.5 Inj 250 ML @ 250 mls/hr IV.SIG Q12H [facility]DRA Rx#:[id number] Oral 240 / 240 Anesthesia Amount 200 / 200 Output: Urine 1300 / 1300 Estimated Blood Loss 5 / 5 Urine Amount (Catheter) 1949 Indwelling Urethral Catheter 1949 Other: # Voids 4 4 Date of Last Bowel Movement 11/19/17 11/26/17 Narrative: GENERAL: This is a well-nourished, well-developed patient, in no apparent distress. SKIN: Warm and dry. HEENT: Normocephalic. Pupils equal round and reactive. Nose without bleeding. Airway patent. NECK: Trachea midline. CARDIOVASCULAR: Regular rate and rhythm without murmurs, gallops, or rubs. RESPIRATORY: Clear to auscultation. Breath sounds equal bilaterally. No wheezes , rales, or rhonchi. GASTROINTESTINAL: Abdomen soft, non-tender, nondistended. Bowel Sounds normoactive x4. MUSCULOSKELETAL: Extremities without clubbing, cyanosis. Bilateral feet warm and dry. Popliteal pulses positive. No peripheral edema noted. NEUROLOGICAL: Awake and alert. Oriented to time, place, person. No focal neuro deficit. Moves all extremities. Normal speech. - Urinary Catheter Management Indwelling Urethral Catheter Cath placed during this visit: yes, but has since been removed by the nurse Reason for continuing: Decision to DC catheter Insertion date: 11/25/17 Insertion time: 15:45 Removal date: 11/26/17 Removal time: 17:30 Results - Labs CBC & Chem 7: 11/26/17 09:09 11/27/17 04:53 Laboratory Results - last 24 hr 11/26/17 11/26/17 11/26/17 09:09 09:09 09:09 WBC 10.1 RBC 3.62 L Hgb 10.5 L Hct 31.8 L MCV 87.8 MCH 28.9 MCHC 32.9 RDW 12.8 Plt Count 235 MPV 8.5 Neut % (Auto) 76.3 H Lymph % (Auto) 17.8 [place] % (Auto) 4.3 Eos % (Auto) 1.2 Baso % (Auto) 0.4 Neut # (Auto) 7.7 Lymph # (Auto) 1.8 [place] # (Auto) 0.4 Eos # (Auto) 0.1 Baso # (Auto) 0.0 WBC Differential . Differential Comment Auto diff final APTT 25.5 Fibrinogen 582 H Creatinine Estimated GFR POC Glucose 11/26/17 11/26/17 11/26/17 13:01 18:24 21:56 WBC RBC Hgb Hct MCV MCH MCHC RDW Plt Count MPV Neut % (Auto) Lymph % (Auto) [place] % (Auto) Eos % (Auto) Baso % (Auto) Neut # (Auto) Lymph # (Auto) [place] # (Auto) Eos # (Auto) Baso # (Auto) WBC Differential Differential Comment APTT Fibrinogen Creatinine Estimated GFR POC Glucose 162 H 204 H 256 H 11/27/17 11/27/17 04:53 08:10 WBC RBC Hgb Hct MCV MCH MCHC RDW Plt Count MPV Neut % (Auto) Lymph % (Auto) [place] % (Auto) Eos % (Auto) Baso % (Auto) Neut # (Auto) Lymph # (Auto) [place] # (Auto) Eos # (Auto) Baso # (Auto) WBC Differential Differential Comment APTT Fibrinogen Creatinine 0.62 Estimated GFR Greater than 89 POC Glucose 125 H - Imaging Impressions Miscellaneous Special Procedure 11/26/17 09:47 CONCLUSION: 1. Uncomplicated angioplasty of the right popliteal artery - Procedures 11/22 Right second digit amputation at metatarsal phalangeal joint Assessment and Plan - Assessment (1) Osteomyelitis Code(s): M86.9 - Osteomyelitis, unspecified Status: Acute (2) Diabetes mellitus Code(s): E11.9 - Type 2 diabetes mellitus without complications Status: Acute - Plan 52-year-old female with no significant medical history who presents to the emergency department due to pain, necrotic changes to her right second toe as well as fever and chills. Patient found to have acute osteomyelitis on the right second toe. Acute Osteomyelitis of right second toe/Surrounding cellulitis S/P right toe digit amputation -11/22-Cultures- Proteus/S. aureus -Currently on vancomycin and Zosyn, pending culture -ID following. Waiting for pathology. -Podiatry following -Acetaminophen and [place] for pain. Morphine for breakthrough pain with bowel regimen -PT eval and treat PAD-right Popliteal artery stenosis Status post TPA lysis overnight and the right SFA/popliteal artery balloon angioplasty 11/26/17 -Vascular surgery following. -Monitor pulses Diabetes mellitus, insulin requiring -HbA1c 13 -Levemir to 15 units twice daily -Continue with insulin sliding scale -Diabetic education -Started on CEZAR inhibitor for renal protection Hyperlipidemia -Lipitor 10 mg at bedtime Hypertension -lisinopril 10 mg daily Full code. SCDs for now. Patient up and ambulating Code Status: Full Code Discussed Condition With: Plan to DC home when cleared by ID, podiatry, vascular surgery. Pending pathology. (1) Osteomyelitis Qualifiers: Osteomyelitis type: unspecified type Osteomyelitis location: foot Laterality : right Qualified Code(s): M86.9 - Osteomyelitis, unspecified
--- NOTE | 2017-11-27 10:45 | P.PNPOD ---
Subjective Interval history: Pt is s/p right 2nd toe amputation with and recent revascularization. She denies any n/v/f/h/c/sob/pain. Physical Exam Vital signs: Vital Signs 11/26/17 12:09 11/26/17 12:35 11/26/17 12:45 Temperature Pulse Rate 73 75 77 Respiratory Rate 12 16 10 L Blood Pressure 159/71 H 164/79 H 175/108 H Pulse Oximetry 98 98 11/26/17 12:49 11/26/17 12:55 11/26/17 13:00 Temperature Pulse Rate 77 79 78 Respiratory Rate 4 L 23 34 H Blood Pressure 173/79 H 172/78 H Pulse Oximetry 97 98 98 11/26/17 13:10 11/26/17 13:15 11/26/17 13:29 Temperature Pulse Rate 76 78 77 Respiratory Rate 16 17 10 L Blood Pressure 181/82 H 175/81 H Pulse Oximetry 98 98 95 11/26/17 13:30 11/26/17 13:59 11/26/17 14:00 Temperature Pulse Rate 77 80 79 Respiratory Rate 11 L 18 20 Blood Pressure 171/81 H 173/79 H Pulse Oximetry 96 97 98 11/26/17 14:28 11/26/17 14:31 11/26/17 14:43 Temperature Pulse Rate 78 79 78 Respiratory Rate 15 27 H 9 L Blood Pressure 187/86 H 177/82 H 182/83 H Pulse Oximetry 97 98 97 11/26/17 14:58 11/26/17 15:00 11/26/17 15:13 Temperature Pulse Rate 82 81 83 Respiratory Rate 13 13 14 Blood Pressure 168/79 H 168/78 H Pulse Oximetry 97 96 95 11/26/17 15:28 11/26/17 15:43 11/26/17 15:58 Temperature Pulse Rate 86 81 81 Respiratory Rate 19 21 16 Blood Pressure 176/82 H 157/74 H 160/75 H Pulse Oximetry 97 98 98 11/26/17 16:00 11/26/17 16:13 11/26/17 16:28 Temperature Pulse Rate 80 82 81 Respiratory Rate 17 18 17 Blood Pressure 176/81 H 145/67 H Pulse Oximetry 98 98 99 11/26/17 16:43 11/26/17 16:58 11/26/17 17:00 Temperature Pulse Rate 80 81 80 Respiratory Rate 16 22 10 L Blood Pressure 142/65 H 139/64 Pulse Oximetry 99 98 98 11/26/17 17:13 11/26/17 17:28 11/26/17 20:00 Temperature 98.7 F Pulse Rate 81 84 81 Respiratory Rate 25 H 19 18 Blood Pressure 136/61 138/65 152/67 H Pulse Oximetry 98 98 99 11/27/17 00:00 11/27/17 04:00 11/27/17 08:00 Temperature 98.6 F 97.8 F 97.9 F Pulse Rate 84 74 73 Respiratory Rate 18 18 16 Blood Pressure 137/61 145/64 H 131/64 Pulse Oximetry 96 98 98 Intake & Output 11/26/17 11/27/17 11/27/17 18:59 06:59 18:59 Intake Total 3602.5 / 3602.5 462.5 / 462.5 Output Total 3255 / 3255 Balance 347.5 / 347.5 462.5 / 462.5 Weight 77.3 kg Intake: IV 3162.5 / 3162.5 462.5 / 462.5 Cathflo Activase Inj 10 MG In 1000 / 1000 NS Inj 500 ML @ 1 MG/HR 50 mls/ hr I-CATHETER TITRATE PRN Rx#: [id number] Heparin/NS PF Inj 500 ML @ 30 500 / 500 mls/hr I-CATHETER .[id number] [facility]DRA Rx#:[id number] Heparin/D5W 25,000 U/250 mL 25, 250 / 250 000 unit In 250 ml @ 5 mls/hr IV.CONT .Q24H [facility] Rx#:[id number] Zosyn 4.5 GM Premix 4.5 gm In 100 / 100 200 / 200 100 ml @ 200 mls/hr IV.SIG Q6H [facility] Rx#:[id number] NS Inj 1,000 ML @ 30 mls/hr IV. 800 / 800 SIG .Q24H [facility]DRA Rx#:[id number] Vancomycin Inj 1,250 MG In NS 262.5 / 262.5 262.5 / 262.5 Inj 250 ML @ 250 mls/hr IV.SIG Q12H [facility] Rx#:[id number] Oral 240 / 240 Anesthesia Amount 200 / 200 Output: Urine 1300 / 1300 Estimated Blood Loss 5 / 5 Urine Amount (Catheter) 1949 Indwelling Urethral Catheter 1949 Other: # Voids 4 4 Date of Last Bowel Movement 11/19/17 11/26/17 Narrative: Right foot incision site is well coapted with all sutures intact. Mild maceration, no erythema, no edema. Slight sanginous drainage. Medications and Allergies Active Medications: Active Medications Acetaminophen (Tylenol) 650 mg PO Q4H PRN PRN Reason: Headache, fever, pain 1-4 Last Admin: 11/25/17 06:20 Dose: 650 mg Hydrocodone Bitart/Acetaminophen ([place] 5/325) 1 tab PO Q6H PRN PRN Reason: Pain 5-10 Last Admin: 11/27/17 08:20 Dose: 1 tab Al Hydroxide/Mg Hydroxide (Milk Of Magnthania Liq) 30 ml PO Q12H PRN PRN Reason: Mild Constipation Last Admin: 11/23/17 18:16 Dose: 30 ml Atorvastatin Calcium (Lipitor) 10 mg PO HS [facility] Last Admin: 11/26/17 21:54 Dose: 10 mg Bisacodyl (Dulcolax Supp) 10 mg RECTAL DAILY PRN PRN Reason: SEVERE CONSITIPATION Dextrose (D50w Vial) 50 ml IV.PUSH UNSCH PRN PRN Reason: PER HYPOGLYCEMIA PROTOCOL Glucagon (Glucagon Inj) 1 mg OTHER PRN PRN PRN Reason: for Hypoglycemia Protocol Vancomycin HCl 1,250 mg/ (Sodium Chloride) 262.5 mls @ 250 mls/hr IV.SIG Q12H [facility] Last Infusion: 11/27/17 00:05 Dose: Infused Sodium Chloride (Ns Inj) 1,000 mls @ 30 mls/hr IV.SIG .Q24H [facility] Last Infusion: 11/26/17 18:35 Dose: Infused Piperacillin/Tazobactam/Dextrose (Zosyn 4.5 Gm Premix) 4.5 gm in 100 mls @ 200 mls/hr IV.SIG Q6H [facility] Last Infusion: 11/27/17 03:32 Dose: Infused Insulin Aspart (Novolog Insulin Correctional Sugar Inj) 0 unit SQ ACHS [facility]; Protocol Last Admin: 11/27/17 08:22 Dose: Not Given Insulin Detemir (Levemir Inj) 15 unit SQ BID [facility] Last Admin: 11/26/17 22:11 Dose: 15 unit Labetalol HCl (Trandate Inj) 10 mg IV.PUSH Q4H PRN PRN Reason: SBP>180, DBP>100, HR>65 Last Admin: 11/26/17 14:52 Dose: 10 mg Lactulose (Lactulose Liq) 30 ml PO DAILY PRN PRN Reason: SEVERE CONSITIPATION Last Admin: 11/24/17 16:07 Dose: 30 ml Lisinopril (Prinivil) 10 mg PO DAILY [facility] Last Admin: 11/27/17 08:21 Dose: 10 mg Miscellaneous Information ([facility] Ordered Lab Info) 0 each OTHER ONCE ONE Stop: 11/30/17 10:46 Morphine Sulfate (Morphine Inj) 2 mg IV.PUSH Q10M PRN PRN Reason: Pain Scale 1 - 4 Morphine Sulfate (Morphine Inj) 4 mg IV.PUSH Q10M PRN PRN Reason: Pain 5-10 Ondansetron HCl (Zofran Inj) 4 mg IV.PUSH Q6H PRN PRN Reason: NAUSEA OR VOMITING Pharmacy Profile Note (Vancomycin Consult Pharmacy) 1 each OTHER UNSCH PRN PRN Reason: Pharmacy to dose Sennosides (Senokot) 17.2 mg PO Q12H PRN PRN Reason: Moderate Constipation Sodium Chloride (Ns Flush) 2 ml IV.FLUSH BID [facility] Last Admin: 11/26/17 21:54 Dose: 2 ml Sodium Chloride (Ns Flush) 2 ml IV.FLUSH PRN PRN PRN Reason: FLUSH AFTER USING IV ACCESS Allergies Allergy/AdvReac Type Severity Reaction Status Date / Time No Known Allergies Allergy Verified 11/19/17 11:44 Home Medications Medication Instructions Recorded Confirmed Type No Known Home Medications 11/19/17 11/19/17 History Results - Labs CBC & Chem 7: 11/26/17 09:09 11/27/17 04:53 Laboratory Results - last 24 hr 11/26/17 11/26/17 11/26/17 13:01 18:24 21:56 Creatinine Estimated GFR POC Glucose 162 H 204 H 256 H 11/27/17 11/27/17 04:53 08:10 Creatinine 0.62 Estimated GFR Greater than 89 POC Glucose 125 H - Imaging Impressions Miscellaneous Special Procedure 11/26/17 09:47 CONCLUSION: 1. Uncomplicated angioplasty of the right popliteal artery - Procedures 11/22 Right second digit amputation at metatarsal phalangeal joint Assessment and Plan - Plan 1)s/p right 2nd digit toe amputation with -next dressing change in office with surgeon -heel WBing in surgical shoe -ok to d/c from a podiatry standpoint, suggest 7-10 days of broad spectrum po abx
--- NOTE | 2017-11-27 11:09 | P.PNID ---
Subjective Remarks: Patient is a 52-year-old female, presented to the hospital complaining of 4-day history of redness and swelling on her right foot as well as black discoloration of her right second toe over the last 2 days. Patient stated that she developed a blister on her right second toe around the first week of September. She has been doing her own wound care, and what is been happening is that she would develop a scab or some kind of a callus over the area where she had the blister, and then it would come off, and then it would develop again a Tania. This went on over the last 2 months. She had an episode of redness below that second toe back in September, and she took some leftover antibiotic from the and apparently the redness went away. She did not really have any other new problem up until 4 days ago when she woke up and she had noticed that the right second toe is red and swollen. She also had fevers at that time. She was not improving, and about a day prior to admission she had noted black discoloration on that second toe. She presented to the hospital for further evaluation and treatment. She has not had any respiratory complaint, GI or any urinary complaints. Since admission she has not had any fever. Her white count is 12,000. Sed rate is 43. Imaging studies of that right foot is showing multiple abnormalities suggestive of osteomyelitis including findings on the second toe, first toe, as well as some of the metatarsal bones. Patient has known neuropathy and according to her this is been for the last 15 years, and has chronic numbness on both feet. Infectious disease consultation has been requested to evaluate the patient Notes reviewed [facility] ok S/P surgery 11/22 Also had revascularization procedure C/S Proteus, GNR, MSSA, Strep Intraop C/S negative Path report pending Antibiotics: Vancomycin Zosyn Lines: PIV Past Medical History: delivery delivered Neuropathy Hx of breast surgery Hx of cholecystectomy Allergies/Adverse Reactions: Allergies No Known Allergies Allergy (Verified 11/19/17 11:44) Objective Vital Signs 11/26/17 12:09 11/26/17 12:35 11/26/17 12:45 Temperature Pulse Rate 73 75 77 Respiratory Rate 12 16 10 L Blood Pressure 159/71 H 164/79 H 175/108 H Pulse Oximetry 98 98 11/26/17 12:49 11/26/17 12:55 11/26/17 13:00 Temperature Pulse Rate 77 79 78 Respiratory Rate 4 L 23 34 H Blood Pressure 173/79 H 172/78 H Pulse Oximetry 97 98 98 11/26/17 13:10 11/26/17 13:15 11/26/17 13:29 Temperature Pulse Rate 76 78 77 Respiratory Rate 16 17 10 L Blood Pressure 181/82 H 175/81 H Pulse Oximetry 98 98 95 11/26/17 13:30 11/26/17 13:59 11/26/17 14:00 Temperature Pulse Rate 77 80 79 Respiratory Rate 11 L 18 20 Blood Pressure 171/81 H 173/79 H Pulse Oximetry 96 97 98 11/26/17 14:28 11/26/17 14:31 11/26/17 14:43 Temperature Pulse Rate 78 79 78 Respiratory Rate 15 27 H 9 L Blood Pressure 187/86 H 177/82 H 182/83 H Pulse Oximetry 97 98 97 11/26/17 14:58 11/26/17 15:00 11/26/17 15:13 Temperature Pulse Rate 82 81 83 Respiratory Rate 13 13 14 Blood Pressure 168/79 H 168/78 H Pulse Oximetry 97 96 95 11/26/17 15:28 11/26/17 15:43 11/26/17 15:58 Temperature Pulse Rate 86 81 81 Respiratory Rate 19 21 16 Blood Pressure 176/82 H 157/74 H 160/75 H Pulse Oximetry 97 98 98 11/26/17 16:00 11/26/17 16:13 11/26/17 16:28 Temperature Pulse Rate 80 82 81 Respiratory Rate 17 18 17 Blood Pressure 176/81 H 145/67 H Pulse Oximetry 98 98 99 11/26/17 16:43 11/26/17 16:58 11/26/17 17:00 Temperature Pulse Rate 80 81 80 Respiratory Rate 16 22 10 L Blood Pressure 142/65 H 139/64 Pulse Oximetry 99 98 98 11/26/17 17:13 11/26/17 17:28 11/26/17 20:00 Temperature 98.7 F Pulse Rate 81 84 81 Respiratory Rate 25 H 19 18 Blood Pressure 136/61 138/65 152/67 H Pulse Oximetry 98 98 99 11/27/17 00:00 11/27/17 04:00 11/27/17 08:00 Temperature 98.6 F 97.8 F 97.9 F Pulse Rate 84 74 73 Respiratory Rate 18 18 16 Blood Pressure 137/61 145/64 H 131/64 Pulse Oximetry 96 98 98 Intake & Output 11/26/17 11/27/17 11/27/17 18:59 06:59 18:59 Intake Total 3602.5 / 3602.5 462.5 / 462.5 Output Total 3255 / 3255 Balance 347.5 / 347.5 462.5 / 462.5 Weight 77.3 kg Intake: IV 3162.5 / 3162.5 462.5 / 462.5 Cathflo Activase Inj 10 MG In 1000 / 1000 NS Inj 500 ML @ 1 MG/HR 50 mls/ hr I-CATHETER TITRATE PRN Rx#: [id number] Heparin/NS PF Inj 500 ML @ 30 500 / 500 mls/hr I-CATHETER .[id number] SANDRA Rx#:[id number] Heparin/D5W 25,000 U/250 mL 25, 250 / 250 000 unit In 250 ml @ 5 mls/hr IV.CONT .Q24H SANDRA Rx#:[id number] Zosyn 4.5 GM Premix 4.5 gm In 100 / 100 200 / 200 100 ml @ 200 mls/hr IV.SIG Q6H SANDRA Rx#:[id number] NS Inj 1,000 ML @ 30 mls/hr IV. 800 / 800 SIG .Q24H SANDRA Rx#:[id number] Vancomycin Inj 1,250 MG In NS 262.5 / 262.5 262.5 / 262.5 Inj 250 ML @ 250 mls/hr IV.SIG Q12H SANDRA Rx#:[id number] Oral 240 / 240 Anesthesia Amount 200 / 200 Output: Urine 1300 / 1300 Estimated Blood Loss 5 / 5 Urine Amount (Catheter) 1949 Indwelling Urethral Catheter 1949 Other: # Voids 4 4 Date of Last Bowel Movement 11/19/17 11/26/17 11/22/17 18:02 Tissue - Foot Acid Fast Bacilli Smear - Final No acid fast bacilli seen 11/22/17 18:02 Tissue - Foot Mycobacterial Culture - Pending 11/22/17 18:02 Tissue - Foot Fungal Smear - Final No fungal elements seen 11/22/17 18:02 Tissue - Foot Fungal Culture - Pending 11/22/17 18:02 Tissue - Foot Gram Stain - Final 11/22/17 18:02 Tissue - Foot Wound Culture - Final No growth in 72 hours (aerobically and anaerobically ) 11/19/17 10:55 Blood - Peripheral Aerobic Blood Culture - Final No growth in 5 days 11/19/17 10:55 Blood - Peripheral Anaerobic Blood Culture - Final No growth in 5 days 11/19/17 11:05 Blood - Peripheral Aerobic Blood Culture - Final No growth in 5 days 11/19/17 11:05 Blood - Peripheral Anaerobic Blood Culture - Final No growth in 5 days Lab - Hematology Results 11/25/17 11/26/17 11/26/17 14:29 01:48 03:14 WBC 9.2 12.0 H 11.7 H RBC 3.98 L 3.71 L 3.67 L Hgb 11.7 10.6 L 10.7 L Hct 34.6 L 32.5 L 32.1 L MCV 86.9 87.6 87.4 MCH 29.5 28.7 29.1 MCHC 33.9 32.7 33.3 RDW 13.1 13.1 12.9 Plt Count 259 232 235 MPV 8.8 8.2 8.9 Neut % (Auto) 62.7 78.6 H 75.4 H Lymph % (Auto) 29.8 16.0 19.4 [place] % (Auto) 5.3 4.1 3.7 Eos % (Auto) 1.6 0.9 0.9 Baso % (Auto) 0.6 0.4 0.6 Neut # (Auto) 5.7 9.4 H 8.8 H Lymph # (Auto) 2.7 1.9 2.3 [place] # (Auto) 0.5 0.5 0.4 Eos # (Auto) 0.2 0.1 0.1 Baso # (Auto) 0.1 0.1 0.1 WBC Differential . . . Differential Comment Auto diff final Auto diff final Auto diff final 11/26/17 09:09 WBC 10.1 RBC 3.62 L Hgb 10.5 L Hct 31.8 L MCV 87.8 MCH 28.9 MCHC 32.9 RDW 12.8 Plt Count 235 MPV 8.5 Neut % (Auto) 76.3 H Lymph % (Auto) 17.8 [place] % (Auto) 4.3 Eos % (Auto) 1.2 Baso % (Auto) 0.4 Neut # (Auto) 7.7 Lymph # (Auto) 1.8 [place] # (Auto) 0.4 Eos # (Auto) 0.1 Baso # (Auto) 0.0 WBC Differential . Differential Comment Auto diff final Lab - Chemistry Results 11/25/17 11/25/17 11/26/17 13:25 20:24 01:48 Sodium 141 Potassium 3.6 Chloride 105 Carbon Dioxide 28.1 Anion Gap 8 BUN 7 Creatinine 0.67 Estimated GFR Greater than 89 POC Glucose 164 H 241 H Random Glucose 251 H Calcium 8.0 L 11/26/17 11/26/17 11/26/17 03:14 07:47 13:01 Sodium Potassium Chloride Carbon Dioxide Anion Gap BUN Creatinine 0.66 Estimated GFR Greater than 89 POC Glucose 218 H 162 H Random Glucose Calcium 11/26/17 11/26/17 11/27/17 18:24 21:56 04:53 Sodium Potassium Chloride Carbon Dioxide Anion Gap BUN Creatinine 0.62 Estimated GFR Greater than 89 POC Glucose 204 H 256 H Random Glucose Calcium 11/27/17 08:10 Sodium Potassium Chloride Carbon Dioxide Anion Gap BUN Creatinine Estimated GFR POC Glucose 125 H Random Glucose Calcium Imaging: ITS Impressions Extremity Arterial Study 11/19/17 00:00 CONCLUSION: Findings of mild disease on the right with slightly decreased toe brachial index on the right characteristic of small vessel vascular disease. CT angiography of the abdominal aorta and lower extremities is recommended for further evaluation if clinically indicated. Chest X-Ray 11/19/17 10:46 CONCLUSION: Negative examination. Foot MRI 11/19/17 10:46 CONCLUSION: 1. Evidence of significant soft tissue swelling of the right second toe as well as edema involving the right second middle and distal phalanges. The findings are consistent with probable osteomyelitis and cellulitis of the right second toe. There is joint fluid involving the second proximal interphalangeal joint. There is diffuse marrow edema involving the first distal phalanx with soft tissue swelling/cellulitis involving the great toe also. These findings are also suggestive of probable osteomyelitis and cellulitis of the great toe. There is also evidence of diffuse marrow edema involving the right third and fourth metatarsals and minimal scattered edema within the distal shaft of the first metatarsal raising the possibility of osteomyelitis within these bones. Three-phase bone scan may be helpful for further characterization of these bones if clinically indicated. Diffuse cellulitis is noted along the plantar surface of the midfoot. No deep soft tissue abscess is noted. Foot X-Ray 11/22/17 00:00 CONCLUSION: 1. Second toe amputated without evidence of an acute complication. 2. Possible focal osteomyelitis of the distal tuft of the great toe distal phalanx as described. SPECT Scan-Bone NM 11/22/17 00:00 CONCLUSION: 1. Increased flow and blood pooling involving the right ankle and foot. There is focal increased uptake of activity involving the right first distal phalanx, right second proximal and middle phalanges and bases of the right third and fourth metatarsals. These findings are suggestive of osteomyelitis of these bones and cellulitis. There is also uptake in the region of the left proximal fourth and fifth metatarsals which is indeterminate. MRI with contrast may be helpful for further characterization of this finding if clinically indicated. Aorta w/Runoff CTA 11/22/17 08:37 CONCLUSION: 1. Patent inflow. 2. Right lower extremity with 1.5 cm length high-grade stenosis of the above- the-knee popliteal artery with three-vessel runoff to the foot. This would be amenable to endovascular repair. 3. Left lower extremity with patent outflow. Two-vessel runoff to the foot. 4. 2.2 cm soft tissue nodule within the right groin likely relates to an enlarged lymph node. No signs of adenopathy elsewhere. This likely is reactive in nature. Miscellaneous Special Procedure 11/26/17 09:47 CONCLUSION: 1. Uncomplicated angioplasty of the right popliteal artery Physical Exam: GENERAL: awake and alert, not in respiratory distress. SKIN: Cool and dry. No generalized rash HEAD: Atraumatic. Normocephalic. No temporal wasting, or tenderness. EYES: [place] conjunctiva. No petechia or hemorrhage. Pupils equal, round and reactive to light. Extraocular movements full and intact. No scleral icterus. No injection or drainage. EARS, NOSE AND THROAT: Nose without bleeding or purulent nasal discharge. No sinus tenderness. Mucous membranes pink and moist. No oral lesions noted. No exudate. No oral thrush. NECK: Trachea midline. Supple and not tender, no meningeal signs CARDIOVASCULAR: Regular rate and rhythm. No murmurs, rubs or gallops heard RESPIRATORY: Clear to auscultation. Breath sounds equal bilaterally. No rales , wheezing or rhonchi ABDOMEN: Soft, non-tender, nondistended. Bowel sounds present and normoactive. No guarding. No rebound. No organomegaly. L groin with dry and intact dressing EXTREMITIES: No clubbing, cyanosis. R foot with dry and intact dressing. No joint effusions and has good ROM. No calf tenderness. NEUROLOGICAL: Grossly within normal limits. PSYCHIATRIC: Normal affect, calm and cooperative. LINE: No evidence of infection Assessment and Plan - Plan Impression Cellulitis R foot with infected R second toe, osteo findings on MRI - abnormal first toe and MT 3rd and 4th but clinically no evidence of osteo - S/P amputation PVD, S/P revascularization Newly diagnosed DM Known neuropathy Recommendation Await path report Change Abx to Rocephin Monitor progress I will determine course of Abx based on results of work-up and surgical intervention Explained plan to the patient
[2017-11-27] MEDS: Sodium Chloride 0.9% 2 ML Flush BID IV.FLUSH SCH ×2 (11:47→22:58)
[2017-11-27] MEDS: Insulin Detemir Inj 1,000 UNIT/10 ML Vial SQ SCH ×2 (11:47→22:58)
[2017-11-27] MEDS: Vancomycin Inj 1,250 MG in Sodium Chlor 0.9% Inj 250 ML IV.SIG SCH (11:49)
--- NOTE | 2017-11-27 11:59 | IR ---
EXAM DATE: 11/25/2017 12:00 AM EDT AGE/SEX: 52 years / Female INDICATIONS: Patient with a history of peripheral vascular disease with a clot in the right lower le g. CLINICAL DATA: This is the patient's initial encounter. Patient reports that signs and symptoms have been present for 1 day and indicates a pain score of 4/10. MEDICAL/SURGICAL HISTORY: . No significant history . Cholecystectomy Breast lumpecto my COMPARISON: No prior exams available for comparison. FLUORO TIME (min): 6.13 IMAGE SERIES: 7 ACCESS SITE: Left femoral artery SEDATION TIME (min): 30 CONTRAST (cc): 60cc Visipaque (iodixanol) MEDICATION(S): 2.5mg midazolam (Versed) IV ; 125mcg fentanyl (Sublimaze) IV ; ; ; DEVICE(S): Right popliteal artery EV3 Infusion catheter 4FR X 5CM ; ; ; ; ; ; . . PROCEDURE : 1. Ultrasound-guided puncture of the access site. 2. Conscious sedation with continuous EKG and Oximetry monitoring. 3. Angiography of the right SFA 4. EXAM DATE: 11/25/2017 12:00 AM EDT AGE/SEX: 52 years / Female INDICATIONS: Patient with a history of peripheral vascular disease with a clot in the right lower le g. CLINICAL DATA: This is the patient's initial encounter. Patient reports that signs and symptoms have been present for 1 day and indicates a pain score of 4/10. MEDICAL/SURGICAL HISTORY: . No significant history . Cholecystectomy Breast lumpecto my COMPARISON: No prior exams available for comparison. FLUORO TIME (min): 6.13 IMAGE SERIES: 7 ACCESS SITE: Left femoral artery SEDATION TIME (min): 30 CONTRAST (cc): 60cc Visipaque (iodixanol) MEDICATION(S): 2.5mg midazolam (Versed) IV 125mcg fentanyl (Sublimaze) IV DEVICE(S): Right popliteal artery EV3 Infusion catheter 4FR X 5CM . . PROCEDURE : 1. Ultrasound-guided puncture of the access site 2. Conscious sedation with continuous EKG and oximetry monitoring. 3. Angiography of the right SFA 4. Infusion for thrombolysis The risks, benefits and alternatives to the procedure were explained and verbal and written consent w as obtained. The site was prepped in sterile fashion. Full sterile technique was used, including ca p, mask, sterile gloves and gown and a large sterile sheet. Hand hygiene and 2% chlorhexidine and/or betadine/alcohol prep was utilized per protocol for cutaneous antisepsis. Sterile gel and sterile p robe cover were utilized for ultrasound guidance. The skin and subcutaneous tissues were infiltrated with local anesthetic solution. With ultrasound and fluoroscopic guidance the prescribed left common femoral artery was punctured and a vascular sheath was placed. An omni flush catheter was used to select the contralateral iliac system. Catheter and wire were susan pulated down into the common femoral. Contrast injection showed the profunda and SFA to both be widel y patent. Focal irregularity with segmental stenosis identified in the above-knee popliteal just abov e the knee joint. Mild irregularity of the below-knee popliteal but no significant stenosis. There ap pear to be high-grade stenosis at the origin of both the anterior tibial and posterior tibial but the re was three-vessel runoff. A wire and catheter were manipulated down the SFA and across the sequential stenosis in the above-kne e popliteal. The left groin sheath was exchanged for a 5 Citizen Of [place] Bernard. A 5 cm infusion catheter was th en placed across the area of stenosis and TPA infusion initiated. Conscious sedation was performed with the prescribed dosages and duration as above in the presence of an independent trained radiology nurse to assist in the monitoring of the patient. EKG and oximetry remained stable throughout the procedure. CONCLUSION: 1. Uncomplicated initiation of thrombolytic therapy as above 2. Sequential stenosis in the distal above-knee popliteal with additional stenosis identified at the origin of the anterior tibial and posterior tibial. Inflow and outflow are otherwise patent. Electronically signed by: Lj Blake MD 11/27/2017 11:57 AM EDT
--- NOTE | 2017-11-27 14:48 | P.PNVS ---
Subjective Subjective/Hospital Course: Patient with gangrene of the toe and stigmata of peripheral vascular disease Full consult dictated CTA with runoff pending Thanks Cheryl 11/23/2017 I have reviewed the CTA with a runoff. As suspected from the clinical exam patient has good inflow and then the problems start and the distal SFA where patient has a tight narrowing on the right side. In addition patient has small vessel disease in both feet Will go ahead with endovascular balloon dilatation of the right distal SFA/ popliteal artery on Saturday11/26/2017 Patient underwent under interventional radiology guidance successful TPA lysis overnight and the right SFA/popliteal artery balloon angioplasty with excellent results. Grateful for superb results and expertise by our interventional radiology team Both feet are warm and this point patient has good inflow and outflow and only limiting factor is small vessel disease in the feet Patient should heal her amputation site adequately 11/27/2017 Nothing to add to care at this time from vascular point Patient has good inflow and outflow in both legs Excellent work by interventional radiology on opening of the right popliteal artery Will sign off at this time Please reconsult if any other problems occur that need addressing by vascular service Objective Vital Signs / I&O: Vital Signs 11/26/17 14:58 11/26/17 15:00 11/26/17 15:13 Temperature Pulse Rate 82 81 83 Respiratory Rate 13 13 14 Blood Pressure 168/79 H 168/78 H Pulse Oximetry 97 96 95 11/26/17 15:28 11/26/17 15:43 11/26/17 15:58 Temperature Pulse Rate 86 81 81 Respiratory Rate 19 21 16 Blood Pressure 176/82 H 157/74 H 160/75 H Pulse Oximetry 97 98 98 11/26/17 16:00 11/26/17 16:13 11/26/17 16:28 Temperature Pulse Rate 80 82 81 Respiratory Rate 17 18 17 Blood Pressure 176/81 H 145/67 H Pulse Oximetry 98 98 99 11/26/17 16:43 11/26/17 16:58 11/26/17 17:00 Temperature Pulse Rate 80 81 80 Respiratory Rate 16 22 10 L Blood Pressure 142/65 H 139/64 Pulse Oximetry 99 98 98 11/26/17 17:13 11/26/17 17:28 11/26/17 20:00 Temperature 98.7 F Pulse Rate 81 84 81 Respiratory Rate 25 H 19 18 Blood Pressure 136/61 138/65 152/67 H Pulse Oximetry 98 98 99 11/27/17 00:00 11/27/17 04:00 11/27/17 08:00 Temperature 98.6 F 97.8 F 97.9 F Pulse Rate 84 74 73 Respiratory Rate 18 18 16 Blood Pressure 137/61 145/64 H 131/64 Pulse Oximetry 96 98 98 11/27/17 09:00 11/27/17 12:00 11/27/17 14:06 Temperature 98.4 F Pulse Rate 73 105 H Respiratory Rate 16 16 Blood Pressure 158/74 H Pulse Oximetry 96 99 Intake & Output 11/26/17 11/27/17 11/27/17 18:59 06:59 18:59 Intake Total 3602.5 / 3602.5 462.5 / 462.5 200 / 200 Output Total 3255 / 3255 Balance 347.5 / 347.5 462.5 / 462.5 200 / 200 Weight 77.3 kg Intake: IV 3162.5 / 3162.5 462.5 / 462.5 200 / 200 Cathflo Activase Inj 10 MG In 1000 / 1000 NS Inj 500 ML @ 1 MG/HR 50 mls/ hr I-CATHETER TITRATE PRN Rx#: [id number] Heparin/NS PF Inj 500 ML @ 30 500 / 500 mls/hr I-CATHETER .[id number] SANDRA Rx#:[id number] Heparin/D5W 25,000 U/250 mL 25, 250 / 250 000 unit In 250 ml @ 5 mls/hr IV.CONT .Q24H SANDRA Rx#:[id number] Zosyn 4.5 GM Premix 4.5 gm In 100 / 100 200 / 200 100 / 100 100 ml @ 200 mls/hr IV.SIG Q6H SANDRA Rx#:[id number] NS Inj 1,000 ML @ 30 mls/hr IV. 800 / 800 SIG .Q24H SANDRA Rx#:[id number] Vancomycin Inj 1,250 MG In NS 262.5 / 262.5 262.5 / 262.5 Inj 250 ML @ 250 mls/hr IV.SIG Q12H SANDRA Rx#:[id number] Rocephin Inj 2,000 MG In NS Inj 100 / 100 100 ML @ 200 mls/hr IV.SIG Q24H SANDRA Rx#:[id number] Oral 240 / 240 Anesthesia Amount 200 / 200 Output: Urine 1300 / 1300 Estimated Blood Loss 5 / 5 Urine Amount (Catheter) 1949 Indwelling Urethral Catheter 1949 Other: # Voids 4 4 Date of Last Bowel Movement 11/19/17 11/26/17 11/26/17 Laboratory Results - last 24 hr 11/26/17 11/26/17 11/27/17 18:24 21:56 04:53 Creatinine 0.62 Estimated GFR Greater than 89 POC Glucose 204 H 256 H 11/27/17 11/27/17 08:10 12:17 Creatinine Estimated GFR POC Glucose 125 H 192 H Impressions Lower Extremity Angiography 11/25/17 00:00 CONCLUSION: 1. Uncomplicated initiation of thrombolytic therapy as above 2. Sequential stenosis in the distal above-knee popliteal with additional stenosis identified at the origin of the anterior tibial and posterior tibial. Inflow and outflow are otherwise patent. Miscellaneous Special Procedure 11/26/17 09:47 CONCLUSION: 1. Uncomplicated angioplasty of the right popliteal artery
[2017-11-27] MEDS: Sod Chloride 0.9% Inj 1,000 ML IV.SIG SCH (16:41)
[2017-11-28] MEDS: Lisinopril 10 MG Tablet PO SCH (08:35)
[2017-11-28] MEDS: Insulin Detemir Inj 1,000 UNIT/10 ML Vial SQ SCH ×2 (08:36→22:03)
[2017-11-28] MEDS: Insulin NovoLOG Aspart Correctional Sugar Inj SQ SCH ×4 (08:36→22:04)
[2017-11-28] MEDS: Sodium Chloride 0.9% 2 ML Flush BID IV.FLUSH SCH ×2 (08:37→22:04)
--- NOTE | 2017-11-28 11:35 | P.PN ---
Subjective Interval history: Follow-up visit acute osteomyelitis of right second toe, surrounding cellulitis , PAD, PVD, DM 2. Patient seen and examined today. Reports she is doing okay. 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 She wants it to be placed in writing that is okay for her to go back to work with a PICC line. Denies pain and discomfort. Denies SOB/ dyspnea. Denies chest pain, palpitations, headaches, dizziness. Denies fevers, chills, n/v/d. Denies dysuria. Physical Exam Vital signs: Vital Signs 11/27/17 12:00 11/27/17 14:06 11/27/17 16:00 Temperature 98.4 F Pulse Rate 105 H Respiratory Rate 16 16 16 Blood Pressure 158/74 H Pulse Oximetry 99 11/27/17 17:46 11/27/17 20:00 11/28/17 00:00 Temperature 98.3 F 97.8 F 98.2 F Pulse Rate 79 81 77 Respiratory Rate 20 20 Blood Pressure 201/91 H 145/68 H 148/64 H Pulse Oximetry 96 97 98 11/28/17 04:00 11/28/17 08:00 Temperature 98.1 F 97.8 F Pulse Rate 77 71 Respiratory Rate 16 20 Blood Pressure 142/64 H 138/60 Pulse Oximetry 96 95 Intake & Output 11/27/17 11/28/17 11/28/17 18:59 06:59 18:59 Intake Total 400 / 400 480 / 480 Output Total 1949 Balance -1550 / -1550 480 / 480 Weight 77.5 kg Intake: IV 200 / 200 Zosyn 4.5 GM Premix 4.5 gm In 100 / 100 100 ml @ 200 mls/hr IV.SIG Q6H SANDRA Rx#:[id number] Rocephin Inj 2,000 MG In NS Inj 100 / 100 100 ML @ 200 mls/hr IV.SIG Q24H SANDRA Rx#:[id number] Oral 480 / 480 Anesthesia Amount 200 / 200 Output: Urine Amount (Catheter) 1949 Indwelling Urethral Catheter 1949 Other: # Voids 4 3 Date of Last Bowel Movement 11/26/17 11/26/17 11/26/17 Narrative: GENERAL: This is a well-nourished, well-developed patient, in no apparent distress. SKIN: Warm and dry. HEENT: Normocephalic. Pupils equal round and reactive. Nose without bleeding. Airway patent. NECK: Trachea midline. CARDIOVASCULAR: Regular rate and rhythm without murmurs, gallops, or rubs. RESPIRATORY: Clear to auscultation. Breath sounds equal bilaterally. No wheezes , rales, or rhonchi. GASTROINTESTINAL: Abdomen soft, non-tender, nondistended. Bowel Sounds normoactive x4. MUSCULOSKELETAL: Extremities without clubbing, cyanosis. Bilateral feet warm and dry. Popliteal pulses positive. No peripheral edema noted. NEUROLOGICAL: Awake and alert. Oriented to time, place, person. No focal neuro deficit. Moves all extremities. Normal speech. - Urinary Catheter Management Indwelling Urethral Catheter Cath placed during this visit: yes, but has since been removed by the nurse Reason for continuing: Decision to DC catheter Insertion date: 11/25/17 Insertion time: 15:45 Removal date: 11/26/17 Removal time: 17:30 Results - Labs CBC & Chem 7: 11/26/17 09:09 11/27/17 04:53 Laboratory Results - last 24 hr 11/27/17 11/27/17 11/27/17 12:17 16:04 20:16 POC Glucose 192 H 160 H 187 H 11/28/17 08:30 POC Glucose 182 H - Imaging Impressions Lower Extremity Angiography 11/25/17 00:00 CONCLUSION: 1. Uncomplicated initiation of thrombolytic therapy as above 2. Sequential stenosis in the distal above-knee popliteal with additional stenosis identified at the origin of the anterior tibial and posterior tibial. Inflow and outflow are otherwise patent. - Procedures 11/22 Right second digit amputation at metatarsal phalangeal joint Assessment and Plan - Assessment (1) Osteomyelitis Code(s): M86.9 - Osteomyelitis, unspecified Status: Acute (2) Diabetes mellitus Code(s): E11.9 - Type 2 diabetes mellitus without complications Status: Acute - Plan 52-year-old female with no significant medical history who presents to the emergency department due to pain, necrotic changes to her right second toe as well as fever and chills. Patient found to have acute osteomyelitis on the right second toe. Acute Osteomyelitis of right second toe/Surrounding cellulitis S/P right toe digit amputation -11/22-Cultures- Proteus/S. aureus -Currently on vancomycin and Zosyn, pending culture -ID following. Waiting for pathology. -Podiatry following -Acetaminophen and [place] for pain. Morphine for breakthrough pain with bowel regimen -PT eval and treat PAD-right Popliteal artery stenosis Status post TPA lysis overnight and the right SFA/popliteal artery balloon angioplasty 11/26/17 -Vascular surgery following. -Monitor pulses Diabetes mellitus, insulin requiring -HbA1c 13 -Levemir to 15 units twice daily -Continue with insulin sliding scale -Diabetic education -Started on CEZAR inhibitor for renal protection Hyperlipidemia -Lipitor 10 mg at bedtime Hypertension -lisinopril 10 mg daily Full code. SCDs for now. Patient up and ambulating Code Status: Full Code Discussed Condition With: Patient, nursing, Dr. Lim Discharge Planning: Plan to DC home when arrangements for IV infusion has been done. She has insurance barriers. Patient is uninsured. (1) Osteomyelitis Qualifiers: Osteomyelitis type: unspecified type Osteomyelitis location: foot Laterality : right Qualified Code(s): M86.9 - Osteomyelitis, unspecified
--- NOTE | 2017-11-28 12:46 | P.PNID ---
Subjective Remarks: Patient is a 52-year-old female, presented to the hospital complaining of 4-day history of redness and swelling on her right foot as well as black discoloration of her right second toe over the last 2 days. Patient stated that she developed a blister on her right second toe around the first week of September. She has been doing her own wound care, and what is been happening is that she would develop a scab or some kind of a callus over the area where she had the blister, and then it would come off, and then it would develop again a Tania. This went on over the last 2 months. She had an episode of redness below that second toe back in September, and she took some leftover antibiotic from the and apparently the redness went away. She did not really have any other new problem up until 4 days ago when she woke up and she had noticed that the right second toe is red and swollen. She also had fevers at that time. She was not improving, and about a day prior to admission she had noted black discoloration on that second toe. She presented to the hospital for further evaluation and treatment. She has not had any respiratory complaint, GI or any urinary complaints. Since admission she has not had any fever. Her white count is 12,000. Sed rate is 43. Imaging studies of that right foot is showing multiple abnormalities suggestive of osteomyelitis including findings on the second toe, first toe, as well as some of the metatarsal bones. Patient has known neuropathy and according to her this is been for the last 15 years, and has chronic numbness on both feet. Infectious disease consultation has been requested to evaluate the patient Notes reviewed Tem ok S/P surgery 11/22 Also had revascularization procedure C/S Proteus, GNR, MSSA, Strep Intraop C/S negative Path report clear margins Bone scan has other areas of osteomyelitis Antibiotics: Rocephin Lines: PIV Past Medical History: delivery delivered Neuropathy Hx of breast surgery Hx of cholecystectomy Allergies/Adverse Reactions: Allergies No Known Allergies Allergy (Verified 11/19/17 11:44) Objective Vital Signs 11/27/17 14:06 11/27/17 16:00 11/27/17 17:46 Temperature 98.4 F 98.3 F Pulse Rate 105 H 79 Respiratory Rate 16 16 Blood Pressure 158/74 H 201/91 H Pulse Oximetry 99 96 11/27/17 20:00 11/28/17 00:00 11/28/17 04:00 Temperature 97.8 F 98.2 F 98.1 F Pulse Rate 81 77 77 Respiratory Rate 20 20 16 Blood Pressure 145/68 H 148/64 H 142/64 H Pulse Oximetry 97 98 96 11/28/17 08:00 Temperature 97.8 F Pulse Rate 71 Respiratory Rate 20 Blood Pressure 138/60 Pulse Oximetry 95 Intake & Output 11/27/17 11/28/17 11/28/17 18:59 06:59 18:59 Intake Total 400 / 400 480 / 480 Output Total 1949 Balance -1550 / -1550 480 / 480 Weight 77.5 kg Intake: IV 200 / 200 Zosyn 4.5 GM Premix 4.5 gm In 100 / 100 100 ml @ 200 mls/hr IV.SIG Q6H SANDRA Rx#:[id number] Rocephin Inj 2,000 MG In NS Inj 100 / 100 100 ML @ 200 mls/hr IV.SIG Q24H SANDRA Rx#:[id number] Oral 480 / 480 Anesthesia Amount 200 / 200 Output: Urine Amount (Catheter) 1949 Indwelling Urethral Catheter 1949 Other: # Voids 4 3 Date of Last Bowel Movement 11/26/17 11/26/17 11/26/17 11/22/17 18:02 Tissue - Foot Acid Fast Bacilli Smear - Final No acid fast bacilli seen 11/22/17 18:02 Tissue - Foot Mycobacterial Culture - Pending 11/22/17 18:02 Tissue - Foot Fungal Smear - Final No fungal elements seen 11/22/17 18:02 Tissue - Foot Fungal Culture - Pending 11/22/17 18:02 Tissue - Foot Gram Stain - Final 11/22/17 18:02 Tissue - Foot Wound Culture - Final No growth in 72 hours (aerobically and anaerobically ) Lab - Chemistry Results 11/26/17 11/26/17 11/26/17 13:01 18:24 21:56 Creatinine Estimated GFR POC Glucose 162 H 204 H 256 H 11/27/17 11/27/17 11/27/17 04:53 08:10 12:17 Creatinine 0.62 Estimated GFR Greater than 89 POC Glucose 125 H 192 H 11/27/17 11/27/17 11/28/17 16:04 20:16 08:30 Creatinine Estimated GFR POC Glucose 160 H 187 H 182 H Imaging: ITS Impressions Extremity Arterial Study 11/19/17 00:00 CONCLUSION: Findings of mild disease on the right with slightly decreased toe brachial index on the right characteristic of small vessel vascular disease. CT angiography of the abdominal aorta and lower extremities is recommended for further evaluation if clinically indicated. Chest X-Ray 11/19/17 10:46 CONCLUSION: Negative examination. Foot MRI 11/19/17 10:46 CONCLUSION: 1. Evidence of significant soft tissue swelling of the right second toe as well as edema involving the right second middle and distal phalanges. The findings are consistent with probable osteomyelitis and cellulitis of the right second toe. There is joint fluid involving the second proximal interphalangeal joint. There is diffuse marrow edema involving the first distal phalanx with soft tissue swelling/cellulitis involving the great toe also. These findings are also suggestive of probable osteomyelitis and cellulitis of the great toe. There is also evidence of diffuse marrow edema involving the right third and fourth metatarsals and minimal scattered edema within the distal shaft of the first metatarsal raising the possibility of osteomyelitis within these bones. Three-phase bone scan may be helpful for further characterization of these bones if clinically indicated. Diffuse cellulitis is noted along the plantar surface of the midfoot. No deep soft tissue abscess is noted. Foot X-Ray 11/22/17 00:00 CONCLUSION: 1. Second toe amputated without evidence of an acute complication. 2. Possible focal osteomyelitis of the distal tuft of the great toe distal phalanx as described. SPECT Scan-Bone NM 11/22/17 00:00 CONCLUSION: 1. Increased flow and blood pooling involving the right ankle and foot. There is focal increased uptake of activity involving the right first distal phalanx, right second proximal and middle phalanges and bases of the right third and fourth metatarsals. These findings are suggestive of osteomyelitis of these bones and cellulitis. There is also uptake in the region of the left proximal fourth and fifth metatarsals which is indeterminate. MRI with contrast may be helpful for further characterization of this finding if clinically indicated. Aorta w/Runoff CTA 11/22/17 08:37 CONCLUSION: 1. Patent inflow. 2. Right lower extremity with 1.5 cm length high-grade stenosis of the above- the-knee popliteal artery with three-vessel runoff to the foot. This would be amenable to endovascular repair. 3. Left lower extremity with patent outflow. Two-vessel runoff to the foot. 4. 2.2 cm soft tissue nodule within the right groin likely relates to an enlarged lymph node. No signs of adenopathy elsewhere. This likely is reactive in nature. Miscellaneous Special Procedure 11/26/17 09:47 CONCLUSION: 1. Uncomplicated angioplasty of the right popliteal artery Physical Exam: GENERAL: awake and alert, not in respiratory distress. SKIN: Cool and dry. No generalized rash HEAD: Atraumatic. Normocephalic. No temporal wasting, or tenderness. EYES: [place] conjunctiva. No petechia or hemorrhage. Pupils equal, round and reactive to light. Extraocular movements full and intact. No scleral icterus. No injection or drainage. EARS, NOSE AND THROAT: Nose without bleeding or purulent nasal discharge. No sinus tenderness. Mucous membranes pink and moist. No oral lesions noted. No exudate. No oral thrush. NECK: Trachea midline. Supple and not tender, no meningeal signs CARDIOVASCULAR: Regular rate and rhythm. No murmurs, rubs or gallops heard RESPIRATORY: Clear to auscultation. Breath sounds equal bilaterally. No rales , wheezing or rhonchi ABDOMEN: Soft, non-tender, nondistended. Bowel sounds present and normoactive. No guarding. No rebound. No organomegaly. L groin with dry and intact dressing EXTREMITIES: No clubbing, cyanosis. R foot with dry and intact dressing. No joint effusions and has good ROM. No calf tenderness. NEUROLOGICAL: Grossly within normal limits. PSYCHIATRIC: Normal affect, calm and cooperative. LINE: No evidence of infection Assessment and Plan - Plan Impression Cellulitis R foot with infected R second toe, osteo findings on MRI - abnormal first toe and MT 3rd and 4th but clinically no evidence of osteo - S/P amputation PVD, S/P revascularization Newly diagnosed DM Known neuropathy Recommendation Continue Rocephin - will need course of Rx for osteo of other bones - has MT 3rd and 4th and part of first Labs weekly while on IV Abx Will refer to Dr strong for ID follow-up Midline CM to arrange for IV Abx on D/C OK to D/C once arrangements made Explained plan to the patient
--- NOTE | 2017-11-28 12:48 | P.DCO ---
Post Hospital Infusion Therapy - Patient Information Patient Weight: 77.5 kg - Diagnosis (1) Osteomyelitis Code(s): M86.9 - Osteomyelitis, unspecified - Administer Medication Ceftriaxone Dose: 2 grams IV Directions: q 24 hours Stop Treatment: 12/30/17 - Additional Information Venous Access: Other (Midline) Additional Instructions: [x] Peripheral flush and dressing changes per protocol [x] Implanted port and central online merchandising coordinator: * Implanted port: 10 ml Normal Saline followed by 5 ml Heparin 100 units/ml Heparin flush after each use and monthly to maintain. [] May leave port accessed during therapy. [] May leave peripheral site accessed for duration of therapy. [x] If patient has SOB or respiratory distress, check oxygen saturation. If less than 90% or clinical signs of respiratory distress, administer oxygen at 2 L/min. via nasal cannula and notify physician. [x] Anaphylaxis/Reaction orders: * Stop infusion. * Keep IV line open with saline flush. * Notify physician. * Monitor vital signs every 15 minutes until symptoms resolve. * Check Oxygen saturation; Oxygen at 2 L/min. via nasal cannula if less than 90% or clinical signs of respiratory distress. * Administer diphenhydramine (Benadryl) 25 mg IV STAT, (unless patient has received as pre-med). May repeat once, if necessary. * Solu-Cortef 250 mg IVP over 30-60 seconds, use 100 mg vials for each dissolution. * Epinephrine (1mg/1 ml) 0.3 mg subcutaneously or IVP now with any signs of respiratory distress. * Check with physician for new additional pre-med orders if patient is re- challenged or re-treated. [x] May remove Midline when treatment complete. [x] If the patient is admitted to the hospital, the ED, or transferred via [facility] , complete transfer form including medication reconciliation order sheet. Weekly Labs: CBC w/diff, Creatinine, LFTs (Hepatic Function Test) (Labs every Saturday - copy to me and Dr strong) Additional Information: Please have patient follow-up with Dr Strong in 3-4 weeks - Patient Information Allergies No Known Allergies Allergy (Verified 11/19/17 11:44) (1) Osteomyelitis Qualifiers: Osteomyelitis type: unspecified type Osteomyelitis location: foot Laterality : right Qualified Code(s): M86.9 - Osteomyelitis, unspecified
[2017-11-28] MEDS: Sod Chloride 0.9% Inj 1,000 ML IV.SIG SCH (19:31)
[2017-11-28] MEDS ORDERED: Insulin Detemir Inj 1,000 UNIT/10 ML Vial SQ SCH (21:00)
[2017-11-29 05:42] VITALS: RESP 18
[2017-11-29 06:14] LABS: Anion Gap 8 meq/L (5-15); Blood Urea Nitrogen 14 mg/dL (7-18); Calcium 8.8 mg/dL (8.5-10.1); Carbon Dioxide 30.5 meq/L (21.0-32.0); Chloride 105 meq/L (98-107); Glomerular Filtration Rate Greater Than 89 mL/min (>89); Glucose,Random 152 mg/dL (74-106); Potassium 3.7 meq/L (3.5-5.1); Sodium 143 meq/L (136-145)
[2017-11-29] MEDS: Insulin NovoLOG Aspart Correctional Sugar Inj SQ SCH ×2 (09:18→13:27)
[2017-11-29] MEDS: Insulin Detemir Inj 1,000 UNIT/10 ML Vial SQ SCH (09:18)
[2017-11-29] MEDS: Sodium Chloride 0.9% 2 ML Flush BID IV.FLUSH SCH (09:20)
[2017-11-29] MEDS: Lisinopril 10 MG Tablet PO SCH (09:20)
--- NOTE | 2017-11-29 09:35 | P.DCO ---
- Diagnosis (1) Osteomyelitis Status: Acute (2) Diabetes mellitus Status: Acute - Home Health Nursing Order: Medical education, Signs/symptoms of disease process, Diabetic education , Wound care and dressing changes, Nursing assessment with vital signs, IV medication administration - Case Management Consult Yes - Certification I have seen patient Caro Nava on 11/29/17. My clinical findings support the need for the requested home health care services because: Limited mobility due to disease progression, Infection with risk of complications I certify that my clinical findings support that this patient is homebound because: Post-op weakness (1) Osteomyelitis Qualifiers: Osteomyelitis type: unspecified type Osteomyelitis location: foot Laterality : right Qualified Code(s): M86.9 - Osteomyelitis, unspecified (2) Diabetes mellitus Qualifiers: Diabetes mellitus type: type 2
--- NOTE | 2017-11-29 10:26 | P.DS ---
Date of admission: 11/19/17 15:06 Primary care physician: No Primary Care Physician Attending physician on discharge: Patrice Collier Anticipated date of discharge: 11/29/17 Brief History from admission: Ms. Nava is a pleasant 52-year-old female with no significant medical history who presents to the emergency department due to pain, necrotic changes to her right second toe as well as fever and chills. Patient had a blister on the bottom side of her right second toe back in September. Her blister improved. However approximately 4 days ago she started noticing redness swelling as well as fever and chills. In the last 24 hours prior to this admission, she started noticing her toe becoming necrotic. She also has more pain in her forefoot and her pain is moving up her ankle. She denies any chest pain, shortness of breath, cough. No abdominal pain. No changes in bowel or bladder habits. ED workup indicates osteomyelitis of the right sided second toe. Her blood glucose was also elevated to 316. She was not aware of her diabetes diagnosis. Past medical history: No significant past medical history. Past surgical history: Cholecystectomy, , breast lumpectomy (no malignancy) Social history: Patient quit smoking a few days ago. She denies using alcohol or illicit drugs. Family history: Mother had arthritis and father had diabetes mellitus. Patient update on day of discharge: Follow-up visit acute osteomyelitis of right second toe, surrounding cellulitis , PAD, PVD, DM 2. Patient seen and examined today. Reports she is doing okay. C/o neuropathic pain right foot, sharp, shooting. Denies SOB/ dyspnea. Denies chest pain, palpitations, headaches, dizziness. Denies fevers, chills, n/ v/d. Denies dysuria. She will go to infusion center. This is been discussed and explained with patient. Plan to DC home today. Discussed With patient continued PICC line, follow-up with Dr. Caban or Dr. Medley's office. Follow- [facility] with [facility]. DS: Diagnosis - Discharge Diagnosis (1) Osteomyelitis Status: Acute (2) Diabetes mellitus Status: Acute DS: Medications - Discharge Medications Prescriptions: atorvastatin [Lipitor] 10 mg PO HS #30 tab blood-glucose meter [Blood Glucose Monitoring] #1 each gabapentin 100 mg PO BID #60 cap hydrocodone-acetaminophen 1 tab PO Q6H PRN #12 tab PRN Reason: Acute Pain insulin detemir U-100 [Levemir U-100 Insulin] 16 unit SUBCUT BID 30 Days #9.6 ml insulin syringe-needle U-100 [BD Veo Insulin Syringe UF] #90 each lancets-blood glucose strips #200 each lisinopril 10 mg PO DAILY #30 tab metformin [Glucophage] 500 mg PO BIDPC #60 tab needle (disp) 22 G [Disposable [place]] #100 each sennosides [Senna Lax] 17.2 mg PO Q12H PRN #60 tab PRN Reason: Moderate Constipation DS: Summary Hospital Course: 52-year-old female with no significant medical history who presents to the emergency department due to pain, necrotic changes to her right second toe as well as fever and chills. Patient found to have acute osteomyelitis on the right second toe. Patient was seen and examined by podiatry, Dr. Caban, is seen and followed the patient and she is status post right toe digit amputation. She was also examined by a vascular surgeon, and did a CTA with runoff. She underwent interventional radiology guidance successful TPA lysis, right SFA/popliteal artery balloon angioplasty. Her cultures were growing Proteus, is aureus. She was started on vancomycin and Zosyn and was switched over to ceftriaxone 2 g every 24 hours by infectious disease. She will continue this until end date 12/30/17. Patient newly diagnosed with diabetes, hemoglobin A1c 13. She was started off on Levemir 15 units twice a day which was increased to 16 units twice a day. She also was started on metformin 500 mg twice daily that she will continue and outpatient. Patient was also started on CEZAR inhibitor for renal protection. She will continue Lipitor 10 mg at bedtime, lisinopril 10 mg daily. She will have gabapentin for neuropathic pain, low dose, this can be adjusted by PCP. She will need to follow-up with podiatry for further evaluation of the wound in the outpatient setting. Patient was provided medication for 30 days on discharge as an assistance. This is been discussed and explained with her. She will continue to go to infusion clinic until she completes IV antibiotics. This has been agreed by patient. Patient has met maximal benefits of hospitalization. Clinically stable for discharge. [place] Prescription Drug Monitoring Database has been queried and verified prior to prescribing the controlled substance. - Time Spent with Patient Total time spent providing and/or coordinating discharge services: Less than 30 minutes - Quality: VTE Deep Vein Thrombosis/Pulmonary Embolism Present on Admission: No Exam Vital signs: Vital Signs 11/28/17 12:00 11/28/17 16:00 11/28/17 20:00 Temperature 98.2 F 98.1 F 99 F Pulse Rate 72 72 74 Respiratory Rate 20 20 18 Blood Pressure 194/79 H 165/76 H 170/78 H Pulse Oximetry 95 96 98 11/29/17 00:00 11/29/17 04:00 11/29/17 08:00 Temperature 99 F 98.9 F 98.5 F Pulse Rate 79 71 73 Respiratory Rate 20 18 18 Blood Pressure 152/67 H 123/60 151/68 H Pulse Oximetry 97 97 94 L Intake & Output 11/28/17 11/29/17 11/29/17 18:59 06:59 18:59 Intake Total 100 / 100 Balance 100 / 100 Weight 77.5 kg 74.6 kg Intake: IV 100 / 100 Rocephin Inj 2,000 MG In NS Inj 100 / 100 100 ML @ 200 mls/hr IV.SIG Q24H SANDRA Rx#:[id number] Other: # Voids 1 Date of Last Bowel Movement 11/26/17 11/28/17 Narrative: GENERAL: This is a well-nourished, well-developed patient, in no apparent distress. SKIN: Warm and dry. HEENT: Normocephalic. Pupils equal round and reactive. Nose without bleeding. Airway patent. NECK: Trachea midline. CARDIOVASCULAR: Regular rate and rhythm without murmurs, gallops, or rubs. RESPIRATORY: Clear to auscultation. Breath sounds equal bilaterally. No wheezes , rales, or rhonchi. GASTROINTESTINAL: Abdomen soft, non-tender, nondistended. Bowel Sounds normoactive x4. MUSCULOSKELETAL: Extremities without clubbing, cyanosis. Bilateral feet warm and dry. Popliteal pulses positive. No peripheral edema noted. NEUROLOGICAL: Awake and alert. Oriented to time, place, person. No focal neuro deficit. Moves all extremities. Normal speech. Results Procedures completed during hospitalization: 11/22 Right second digit amputation at metatarsal phalangeal joint Completed studies during hospitalization: Pending at discharge 11/22/17 07:48 Surgical [PTH] Routine Labs on day of discharge: Labs from last 24 hours 11/29/17 11/29/17 11/28/17 07:42 05:26 20:06 Sodium 143 Potassium 3.7 Chloride 105 Carbon Dioxide 30.5 Anion Gap 8 BUN 14 Creatinine 0.66 Estimated GFR Greater than 89 POC Glucose 186 H 160 H Random Glucose 152 H Calcium 8.8 11/28/17 11/28/17 17:44 12:48 Sodium Potassium Chloride Carbon Dioxide Anion Gap BUN Creatinine Estimated GFR POC Glucose 122 H 213 H Random Glucose Calcium - Impressions ITS Impressions Extremity Arterial Study 11/19/17 00:00 CONCLUSION: Findings of mild disease on the right with slightly decreased toe brachial index on the right characteristic of small vessel vascular disease. CT angiography of the abdominal aorta and lower extremities is recommended for further evaluation if clinically indicated. Chest X-Ray 11/19/17 10:46 CONCLUSION: Negative examination. Foot MRI 11/19/17 10:46 CONCLUSION: 1. Evidence of significant soft tissue swelling of the right second toe as well as edema involving the right second middle and distal phalanges. The findings are consistent with probable osteomyelitis and cellulitis of the right second toe. There is joint fluid involving the second proximal interphalangeal joint. There is diffuse marrow edema involving the first distal phalanx with soft tissue swelling/cellulitis involving the great toe also. These findings are also suggestive of probable osteomyelitis and cellulitis of the great toe. There is also evidence of diffuse marrow edema involving the right third and fourth metatarsals and minimal scattered edema within the distal shaft of the first metatarsal raising the possibility of osteomyelitis within these bones. Three-phase bone scan may be helpful for further characterization of these bones if clinically indicated. Diffuse cellulitis is noted along the plantar surface of the midfoot. No deep soft tissue abscess is noted. Foot X-Ray 11/22/17 00:00 CONCLUSION: 1. Second toe amputated without evidence of an acute complication. 2. Possible focal osteomyelitis of the distal tuft of the great toe distal phalanx as described. SPECT Scan-Bone NM 11/22/17 00:00 CONCLUSION: 1. Increased flow and blood pooling involving the right ankle and foot. There is focal increased uptake of activity involving the right first distal phalanx, right second proximal and middle phalanges and bases of the right third and fourth metatarsals. These findings are suggestive of osteomyelitis of these bones and cellulitis. There is also uptake in the region of the left proximal fourth and fifth metatarsals which is indeterminate. MRI with contrast may be helpful for further characterization of this finding if clinically indicated. Aorta w/Runoff CTA 11/22/17 08:37 CONCLUSION: 1. Patent inflow. 2. Right lower extremity with 1.5 cm length high-grade stenosis of the above- the-knee popliteal artery with three-vessel runoff to the foot. This would be amenable to endovascular repair. 3. Left lower extremity with patent outflow. Two-vessel runoff to the foot. 4. 2.2 cm soft tissue nodule within the right groin likely relates to an enlarged lymph node. No signs of adenopathy elsewhere. This likely is reactive in nature. Miscellaneous Special Procedure 11/26/17 09:47 CONCLUSION: 1. Uncomplicated angioplasty of the right popliteal artery Discharge Plan - Discharge Disposition Patient Disposition: 01 Discharge Home - Discharge Condition Condition: Fair - Discharge Order Discharge Orders: Discharge Order (Routine); Ordered 11/29/17 Ordered By: Ana Bales - Physicians Team Primary Care Provider: [facility] Attending Provider: Patrice Collier Other Providers: Kirstie Wei DPM ; Mini Lim MD ; Carmelita Matthews MD ; Mehran Kohler MD
[2017-11-29 12:44] VITALS: BP 148/70; PULSE 78; TEMP 99.2; O2SAT 98
[2017-11-30] MEDS ORDERED: Pharmacy Ordered Lab Info OTHER ONE (10:45)
== END 2017-11-29 14:14 | disposition home or self-care (01) ==
LOC: NEPE 10:24 → NEDA 15:06 → N05 15:40 → N03 11-25 11:23 → N05 11-26 17:43
PROVIDERS: ADMIT Hospitalist; ATTEND Hospitalist